=== PATIENT | female | born 1950 | race Caucasian/White ===

== ENCOUNTER 2017-05-23 13:20 | Inpatient (IN) | payer BC ==
[~2017-05-23] VITALS: Ht 175.3 cm; Wt 94.1 kg
[~2017-05-23 13:20] MED LIST: CIPR500T78 PO; HYDR-3456 PO
--- NOTE | 2017-05-23 13:45 | ED Respiratory ---
General Chief Complaint: Respiratory Problems Stated Complaint: SOB Source: patient Exam Limitations: no limitations History of Present Illness Time seen by provider: 13:41 Initial Comments This 67-year-old white female presents with a complaint of shortness of breath for the past week. The patient has had associated joint pains. 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 The patient has been receiving injections of Simphoni, the most recent approximately 3 weeks ago. Patient states that the medication was extremely effective when first started and she is now having significant relapses several weeks after she receives the injection. The patient's shortness of breath is a new complaint and has not occurred with the relapses from the infusion. The patient denies fever, chills, productive cough, hemoptysis, easy bruising or bleeding, peripheral edema, chest pain, or palpitations. Allergies and Home Medications Allergies Coded Allergies: No Known Drug Allergies (Unverified , 09/13/14) Home Medications Hydrocodone/Acetaminophen 1 Each Tablet, 1-2 TAB PO Q4-6HR PRN for PAIN, #30 FOR PAIN Prescribed by: NICOLE KISER on 06/05/15 0837 Constitutional: No chills, No fever EENTM: No hearing loss, No vision loss Respiratory: see HPI, No cough, dyspnea on exertion, No hemoptysis, short of breath Cardiovascular: No chest pain, No palpitations Gastrointestinal: No abdominal pain, No diarrhea, No nausea, No vomiting Genitourinary: No dysuria, No frequency, No hematuria : No Musculoskeletal: joint pain Skin: No rash Psychiatric/Neurological: No Symptoms Reported Hematologic/Lymphatic: No Symptoms Reported Past Wqboanx-Hnvxqi-Yyfshn Hx Patient Social History Recent Foreign Travel: No Contact w/Someone Who Travel: No Immunizations Up To Date Tetanus Booster (TDap): Unknown Surgeries HX Surgeries: Yes (JAW SURGERY 17YRS AGO) Surgeries: Abdominal Respiratory Hx Respiratory Disorders: No Cardiovascular Hx Cardiac Disorders: No (HAD STRESS TEST IN Nov, WAS OK) Neurological Hx Neurological Disorders: No Reproductive System Hx Reproductive Disorders: No Sexually Transmitted Disease: No HIV/AIDS: No Female Reproductive Disorders: Denies Genitourinary Hx Genitourinary Disorders: No Gastrointestinal Hx Gastrointestinal Disorders: No Musculoskeletal Hx Musculoskeletal Disorders: Yes (IN FEET) Musculoskeletal Disorders: Arthritis Endocrine Hx Endocrine Disorders: No HEENT HX ENT Disorders: Yes (WEARS GLASSES) Loss of Vision: Bilateral Hearing Impairment: Denies Cancer Hx Cancer: No Psychosocial Hx Psychiatric Problems: No Integumentary HX Skin/Integumentary Disorder: No Blood Transfusions Hx Blood Disorders: No Adverse Reaction to a Blood Tr: No Reviewed Nursing Assessment Reviewed/Agree w Nursing PMH: Yes Family Medical History Family Medial History: Cardiovascular disease FH: breast cancer Physical Exam Vital Signs Vital Sign - Last 12Hours 05/23/17 13:39 Temp 101.1 Pulse 107 Resp 20 B/P (MAP) 174/110 Pulse Ox 85 O2 Delivery Room Air Capillary Refill : General Appearance: WD/WN, mild distress Eyes: Bilateral Eye Normal Inspection HEENT: normal ENT inspection Neck: full range of motion Respiratory: chest non-tender, lungs clear, normal breath sounds Cardiovascular: regular rate, rhythm, no edema, no murmur Gastrointestinal: normal bowel sounds, non tender, soft Neurologic/Psychiatric: no motor/sensory deficits, alert, normal mood/affect, oriented x 3 Skin: normal color, warm/dry, No rash Lymphatic: no adenopathy Focused Exam Lactic Acid Level Laboratory Tests Test 05/23/17 13:45 Lactic Acid Level 1.38 MMOL/L (0.50-2.00) Progress/Results/Core Measures Results/Orders Lab Results Laboratory Tests Test 05/23/17 13:45 05/23/17 14:26 Range/Units White Blood Count 9.3 4.3-11.0 10^3/uL Red Blood Count 3.82 L 4.35-5.85 10^6/uL Hemoglobin 11.8 11.5-16.0 G/DL Hematocrit 36 35-52 % Mean Corpuscular Volume 93 80-99 FL Mean Corpuscular Hemoglobin 31 25-34 PG Mean Corpuscular Hemoglobin Concent 33 32-36 G/DL Red Cell Distribution Width 14.3 10.0-14.5 % Platelet Count 474 H 130-400 10^3/uL Mean Platelet Volume 9.2 7.4-10.4 FL Neutrophils (%) (Auto) 75 42-75 % Lymphocytes (%) (Auto) 11 L 12-44 % Monocytes (%) (Auto) 13 H 0-12 % Eosinophils (%) (Auto) 1 0-10 % Basophils (%) (Auto) 0 0-10 % Neutrophils # (Auto) 7.0 1.8-7.8 X 10^3 Lymphocytes # (Auto) 1.0 1.0-4.0 X 10^3 Monocytes # (Auto) 1.2 H 0.0-1.0 X 10^3 Eosinophils # (Auto) 0.1 0.0-0.3 10^3/uL Basophils # (Auto) 0.0 0.0-0.1 10^3/uL Erythrocyte Sedimentation Rate 83 H 0-30 MM/HR D-Dimer 1.68 H 0.00-0.49 UG/ML Sodium Level 134 L 135-145 MMOL/L Potassium Level 4.1 3.6-5.0 MMOL/L Chloride Level 101 98-107 MMOL/L Carbon Dioxide Level 21 21-32 MMOL/L Anion Gap 12 5-14 MMOL/L Blood Urea Nitrogen 16 7-18 MG/DL Creatinine 1.00 0.60-1.30 MG/DL Estimat Glomerular Filtration Rate 55 BUN/Creatinine Ratio 16 Glucose Level 122 H 70-105 MG/DL Lactic Acid Level 1.38 0.50-2.00 MMOL/L Calcium Level 9.7 8.5-10.1 MG/DL Total Bilirubin 0.7 0.1-1.0 MG/DL Aspartate Amino Transf (AST/SGOT) 18 5-34 U/L Alanine Aminotransferase (ALT/SGPT) 11 0-55 U/L Alkaline Phosphatase 64 40-136 U/L Troponin I < 0.30 <0.30 NG/ML C-Reactive Protein High Sensitivity 14.18 H 0.00-0.50 MG/DL B-Type Natriuretic Peptide 42.2 <100.0 PG/ML Total Protein 7.2 6.4-8.2 GM/DL Albumin 3.6 3.2-4.5 GM/DL Urine Color YELLOW Urine Clarity SLIGHTLY CLOUDY Urine pH 7 5-9 Urine Specific [place] 1.015 L 1.016-1.022 Urine Protein 2+ H NEGATIVE Urine Glucose (UA) NEGATIVE NEGATIVE Urine Ketones 1+ H NEGATIVE Urine Nitrite NEGATIVE NEGATIVE Urine Bilirubin NEGATIVE NEGATIVE Urine Urobilinogen 1 NORMAL MG/DL Urine Leukocyte Esterase 2+ H NEGATIVE Urine RBC (Auto) 1+ H NEGATIVE Urine RBC 0-2 /HPF Urine WBC 10-25 H /HPF Urine Squamous Epithelial Cells 2-5 /HPF Urine Crystals NONE /LPF Urine Bacteria TRACE /HPF Urine Casts NONE /LPF Urine Mucus NEGATIVE /LPF Urine Culture Indicated YES My Orders Orders - ZANE CANNON MD Hs C Reactive Protein (05/23/17 13:35) Cbc With Automated Diff (05/23/17 13:35) Comprehensive Metabolic Panel (05/23/17 13:35) Ua Culture If Indicated (05/23/17 13:35) Erythrocyte Sedimentation Rate (05/23/17 13:35) Chest 1 View, Ap/Pa Only (05/23/17 13:35) Fibrin Degradation Products (05/23/17 13:38) BNP (05/23/17 13:38) Ekg Tracing (05/23/17 13:38) Troponin I (05/23/17 13:38) Blood Culture (05/23/17 13:46) Lactic Acid Analyzer (05/23/17 13:46) Ns Iv 1000 Ml (Sodium Chloride 0.9%) (05/23/17 14:00) Saline Lock/Iv-Start (05/23/17 14:00) Ct Angio Chest W (05/23/17 14:27) Iohexol Injection (Omnipaque 350 Mg/Ml 1 (05/23/17 14:30) Ns (Ivpb) (Sodium Chloride 0.9% Ivpb Bag (05/23/17 14:30) Urine Culture (05/23/17 14:26) Levaquin 750 Mg Iv (1x Dose) (05/23/17 15:45) Medications Given in ED Current Medications Medications Dose Ordered Sig/Joi Route Start Time Stop Time Status Last Admin Dose Admin Iohexol 100 ml ONCE ONCE IV 05/23/17 14:30 05/23/17 14:31 DC 05/23/17 14:40 100 ML Sodium Chloride 100 ml ONCE ONCE IV 05/23/17 14:30 05/23/17 14:31 DC 05/23/17 14:40 80 ML Vital Signs/I&O Vital Sign - Last 12Hours 05/23/17 13:39 Temp 101.1 Pulse 107 Resp 20 B/P (MAP) 174/110 Pulse Ox 85 O2 Delivery Room Air Progress Note : Time: 15:16 Progress Note Patient's laboratory evaluation demonstrated a markedly elevated CRP and sedimentation rate. Patient's white count was normal. The patient's B and P was normal. The patient's d-dimer was elevated. Patient's chest x-ray demonstrated marked vascular redistribution cardiomegaly. Symptomatically the patient was significantly short of breath. Patient's sats decreased from low 90s while she was sitting in bed to the lower 80s just with standing and removing her clothing. The patient's findings were certainly consistent with a possible pulmonary embolus. A CT angiogram of the chest was ordered. 1545 hours. The summary of the patient's laboratory and radiographic evaluation demonstrated cardiomegaly on the chest x-ray, an unremarkable white count, an elevated d-dimer, a normal BNP, an EKG which demonstrated a sinus rhythm without acute current of injury, a normal troponin, and marked elevation of the patient's CRP and sedimentation rate. A CT angiogram of the chest demonstrated pneumonia of both upper lobes. No evidence of a blood clot was appreciated. In view of the fact patient has been on essentially immune suppressant's in the form of her arthritis infusion treatments, after telephone consultation with Dr. Myesr, triple antibiotics were ordered appropriate for the patient. Orders were written, the patient was transferred to a telemetry bed for further evaluation care, and discussion of the patient's treatment plan was initiated in consultation with Dr. Myers. Departure Communication Time/Spoke to Admitting Phy: 15:[address] Myers. Impression Impression: Primary Impression: Pneumonia Qualified Codes: J18.9 - Pneumonia, unspecified organism Disposition: ADMITTED INPATIENT Condition: Improved Decision to Admit Reason: Admit from ER (General) Decision to Admit/Date: May 23, 2017 Time/Decision to Admit Time: 15:49 Departure-Patient Inst. Referrals: JACKY ROGERS MD (PCP/Family) Primary Care Physician ZANE CANNON MD May 23, 2017 13:45
--- NOTE | 2017-05-23 13:54 | Diagnostic Imaging Report ---
INDICATION: Cough, shortness of breath. COMPARISON: None. FINDINGS: Single view of the chest demonstrates cardiac enlargement with central vascular congestion. There is no pneumothorax, effusion or focal infiltrate. Osseous structures normal. IMPRESSION: Cardiac enlargement with central vascular congestion. Dictated by: Dictated on workstation # [id number]
[2017-05-23 14:00] LABS: BASOPHILS % (AUTO) 0 % (0-10); EOSINOPHILS # (AUTO) 0.1 10^3/uL (0.0-0.3); EOSINOPHILS % (AUTO) 1 % (0-10); LYMPHOCYTES % (AUTO) 11 % (12-44); MEAN CORPUSCULAR HEMOGLOBIN 31 PG (25-34); MEAN CORPUSCULAR HGB CONC 33 G/DL (32-36); MEAN CORPUSCULAR VOLUME 93 FL (80-99); MEAN PLATELET VOLUME 9.2 FL (7.4-10.4); MONOCYTES # (AUTO) 1.2 X 10^3 (0.0-1.0); MONOCYTES % (AUTO) 13 % (0-12); NEUTROPHILS % (AUTO) 75 % (42-75); PLATELET COUNT 474 10^3/uL (130-400); RED BLOOD COUNT 3.82 10^6/uL (4.35-5.85); RED CELL DISTRIBUTION WIDTH 14.3 % (10.0-14.5); WHITE BLOOD COUNT 9.3 10^3/uL (4.3-11.0)
[2017-05-23] MEDS ORDERED: NS IV 1000 ML 1,000 ML IV SCH (14:00)
[2017-05-23 14:12] LABS: ALANINE AMINOTRANSFERASE 11 U/L (0-55); ALBUMIN 3.6 GM/DL (3.2-4.5); ANION GAP 12 MMOL/L (5-14); ASPARTATE AMINO TRANSFERASE 18 U/L (5-34); BILIRUBIN,TOTAL 0.7 MG/DL (0.1-1.0); BLOOD UREA NITROGEN 16 MG/DL (7-18); BUN/CREATININE RATIO 16; CALCIUM 9.7 MG/DL (8.5-10.1); CARBON DIOXIDE 21 MMOL/L (21-32); CHLORIDE 101 MMOL/L (98-107); GFR ESTIMATED 55; GLUCOSE 122 MG/DL (70-105); POTASSIUM 4.1 MMOL/L (3.6-5.0); SODIUM 134 MMOL/L (135-145); TOTAL PROTEIN 7.2 GM/DL (6.4-8.2); hs C REACTIVE PROTEIN 14.18 MG/DL (0.00-0.50)
[2017-05-23 14:18] LABS: TROPONIN I < 0.30 NG/ML (<0.30)
[2017-05-23 14:21] LABS: ERYTHROCYTE SEDIMENTATION RATE 83 MM/HR (0-30)
[2017-05-23] MEDS ORDERED: NS 100 ML (IVPB) BAG IV ONE (14:30)
[2017-05-23] MEDS ORDERED: IOHEXOL 350 MG/ML 100 ML (OMNIPAQUE 350) VIAL IV ONE (14:30)
[2017-05-23 14:33] LABS: BILIRUBIN,URINE NEGATIVE (NEGATIVE); KETONES,URINE 1+ (NEGATIVE); LEUKOCYTE ESTERASE ,URINE 2+ (NEGATIVE); NITRITE,URINE NEGATIVE (NEGATIVE); PH,URINE 7 (5-9); PROTEIN,URINE 2+ (NEGATIVE); UROBILINOGEN,URINE 1 MG/DL (NORMAL)
--- NOTE | 2017-05-23 15:22 | Diagnostic Imaging Report ---
PROCEDURE: CT angiography of the chest with contrast. TECHNIQUE: Multiple contiguous axial images were obtained through the chest after uneventful bolus administration of intravenous contrast. Reconstructed CTA MIP acquisitions were also performed. INDICATION: Cough, shortness of breath. COMPARISON: None. FINDINGS: The heart and great vessels are normal. There is no pulmonary embolism or aortic pathology. No pericardial effusion is seen. Bilateral patchy infiltrates are seen bilaterally. This is most pronounced in the mid and upper lung zones. There is mediastinal and hilar lymphadenopathy which may be reactive. The largest lymph node is in the mediastinum measuring 12 mm in cross-section. There is no pneumothorax. Osseous structures are age appropriate. IMPRESSION: 1. No pulmonary embolism. 2. Bilateral pulmonary infiltrates, likely pneumonia with probable reactive lymphadenopathy. Recommend followup to assure resolution. Neoplasm is not excluded. Dictated by: Dictated on workstation # [id number]
[2017-05-23] MEDS ORDERED: LEVOFLOXACIN 750 MG/150 ML IV 150 ML IV ONE (15:45)
[2017-05-23] MEDS: NS IV 1000 ML 1,000 ML IV SCH (17:29)
[2017-05-23 17:45] VITALS: BP 143/82
[2017-05-23] MEDS ORDERED: NS IV SCH (18:00)
[2017-05-23] MEDS ORDERED: GENTAMICIN IV SCH (18:00)
[2017-05-23] MEDS: ACETAMINOPHEN 500 MG TAB (TYLENOL) PO PRN ×2 (18:06→23:43)
[2017-05-23] MEDS: CEFEPIME 2 GM/NS 50 ML IVPB IV SCH ×2 (19:49)
[2017-05-23 20:00] VITALS: BP 116/71
[2017-05-23] MEDS: RT-ALBUTEROL/IPRATROPIUM 3 ML (DUONEB) VIAL IH SCH (20:33)
[2017-05-23 23:30] VITALS: BP 112/65
[2017-05-24] MEDS ORDERED: TROUGH ORDER-PHARMACY XX NR (04:00)
[2017-05-24 04:55] VITALS: BP 121/75
[2017-05-24 04:57] LABS: BASOPHILS % (AUTO) 0 % (0-10); EOSINOPHILS # (AUTO) 0.1 10^3/uL (0.0-0.3); EOSINOPHILS % (AUTO) 1 % (0-10); LYMPHOCYTES % (AUTO) 13 % (12-44); MEAN CORPUSCULAR HEMOGLOBIN 31 PG (25-34); MEAN CORPUSCULAR HGB CONC 34 G/DL (32-36); MEAN CORPUSCULAR VOLUME 94 FL (80-99); MEAN PLATELET VOLUME 9.5 FL (7.4-10.4); MONOCYTES # (AUTO) 1.1 X 10^3 (0.0-1.0); MONOCYTES % (AUTO) 14 % (0-12); NEUTROPHILS # (AUTO) 5.6 X 10^3 (1.8-7.8); NEUTROPHILS % (AUTO) 72 % (42-75); PLATELET COUNT 386 10^3/uL (130-400); RED BLOOD COUNT 3.38 10^6/uL (4.35-5.85); WHITE BLOOD COUNT 7.8 10^3/uL (4.3-11.0)
[2017-05-24 05:13] LABS: BILIRUBIN,TOTAL 0.4 MG/DL (0.1-1.0); CALCIUM 8.7 MG/DL (8.5-10.1); TOTAL PROTEIN 6.1 GM/DL (6.4-8.2)
[2017-05-24] MEDS: RT-ALBUTEROL/IPRATROPIUM 3 ML (DUONEB) VIAL IH SCH ×4 (07:31→19:22)
--- NOTE | 2017-05-24 08:10 | History & Physicial ---
History of Present Illness History of Present Illness Reason for visit/HPI PT IS A 67 Y/O FEMALE WHO IS KNOWN TO ME FROM CLINIC. SHE PRESENTED TO THE EMERGENCY DEPARTMENT YESTERDAY EVENING WITH WEAKNESS, COUGH, FEVER, AND WAS EVALUATED AND FOUND TO HAVE PNEUMONIA ON CT SCAN. SHE CONTINUED TO HAVE FEVERS OVERNIGHT AND REQUIRES OXYGEN FOR SUPPORT DUE TO SHORTNESS OF BREATH AND HYPOXIA. Date of Admission May 23, 2017 at 15:43 Date Seen by Provider: May 24, 2017 Time Seen by Provider: 08:48 I consulted on this patient on 05/24/17 08:48 Attending Physician JACKY KONG MD Admitting Physician Jacky Kong MD Consult Allergies and Home Medications Allergies Coded Allergies: No Known Drug Allergies (Unverified , 09/13/14) Home Medications Cholecalciferol (Vitamin D3) 1,000 Unit Capsule, 2,000 UNIT PO DAILY, (Reported) TAKES 2 (1,000 UNITS) CAPSULES Folic Acid 1 Mg Tablet, 1 MG PO DAILY, (Reported) Hydrocodone/Acetaminophen 1 Each Tablet, 0.5-1 TAB PO Q6H PRN for PAIN-MODERATE, (Reported) Methotrexate Sodium 2.5 Mg Tablet, 25 MG PO Andrew, (Reported) Nabumetone 750 Mg Tablet, 1,500 MG PO DAILY, (Reported) TAKES 2 (750MG) TABLETS Past Qyauhkd-Gndskb-Xbniiy Hx Patient Social History Marrital Status: Living Status: LIVES IN HER OWN HOME Employed/Student: employed Alcohol Use: Denies Use Recreational Drug Use: No Smoking Status: Never a Smoker 2nd Hand Smoke Exposure: No Physical Abuse Screen: No Sexual Abuse: No Recent Foreign Travel: No Contact w/other who traveled: No Recent Hopitalizations: No Recent Infectious Disease Expo: No Immunizations Up To Date Tetanus Booster (TDap): Unknown Seasonal Allergies Seasonal Allergies: No Surgeries HX Surgeries: Yes (JAW SURGERY 17YRS AGO) Surgeries: Abdominal Respiratory Hx Respiratory Disorders: No Cardiovascular Hx Cardiovascular Disorders: No (HAD STRESS TEST IN Nov, WAS OK) Neurological Hx Neurological Disorders: No Reproductive System Hx Reproductive Disorders: No Sexually Transmitted Disease: No HIV/AIDS: No Female Reproductive Disorders: Denies Genitourinary Hx Genitourinary Disorders: No Gastrointestinal Hx Gastrointestinal Disorders: No Musculoskeletal Hx Musculoskeletal Disorders: Yes (IN FEET) Musculoskeletal Disorders: Arthritis, Rheumatoid Arthritis Endocrine Hx Endocrine Disorders: No HEENT HX ENT Disorders: Yes (WEARS GLASSES) Loss of Vision: Bilateral Hearing Impairment: Denies Cancer Hx Cancer: No Psychosocial Hx Psychiatric Problems: No Integumentary HX Skin/Integumentary Disorder: No Blood Transfusions Hx Blood Disorders: No Adverse Reaction to a Blood Tr: No Reviewed Nursing Assessment Reviewed/Agree w Nursing PMH: Yes Family Medical History Significant Family History: Heart Disease, Cancer, Other Conditions/Hx Family Hx: Cardiovascular disease 19 FATHER FH: breast cancer 19 MOTHER FH: non-Hodgkin's lymphoma G8 BROTHER FHx: rheumatoid arthritis G8 SISTER Heart murmur Constitutional: No chills, fever, malaise, weakness EENTM: No hoarseness, No mouth pain, No throat pain Respiratory: cough, dyspnea on exertion, short of breath Cardiovascular: No chest pain, No palpitations Gastrointestinal: No abdominal pain, No loss of appetite, No melena, No nausea , No vomiting Genitourinary: no symptoms reported Musculoskeletal: No back pain, joint pain, muscle weakness Skin: No lesions Psychiatric/Neurological: Denies Anxiety, Denies Depressed All Other Systems Reviewed Negative Unless Noted: Yes Physical Exam Vital Signs Vital Sign - Last 12Hours 05/23/17 05/23/17 13:39 16:03 Temp 101.1 Pulse 107 Resp 20 B/P (MAP) 174/110 Pulse Ox 85 O2 Delivery Room Air O2 Flow Rate 2.00 Capillary Refill : Less Than 3 Seconds General Appearance: No Apparent Distress, WD/WN Eyes: Bilateral Eye EOMI, Bilateral Eye Normal Inspection, Bilateral Eye PERRL HEENT: PERRL/EOMI, Pharynx Normal Neck: Full Range of Motion, Supple Respiratory: Chest Non Tender, Crackles, Decreased Breath Sounds Cardiovascular: Regular Rate, Rhythm Gastrointestinal: Normal Bowel Sounds, Soft Rectal: Deferred Extremity: No Pedal Edema Neurologic/Psychiatric: Alert, Oriented x3, No Motor/Sensory Deficits, Normal Mood/Affect, senior medical transcriptionist II-XII Norm as Tested Skin: Normal Color, Warm/Dry Lymphatic: No Adenopathy Assessment/Plan Assessment and Plan PNEUMONIA HYPOXIA LYMPHADENOPATHY RHEUMATOID ARTHRITIS CHRONIC IMMUNOSUPPRESSION PNEUMONIA - ON PNEUMONIA PROTOCOL, CONTINUE CURRENT TREATMENT - STOP GENTAMICIN - CHECK SERIAL CHEST XRAYS. HYPOXIA - IMPROVED ON OXYGEN - CONTINUE CURRENT MANAGEMENT - MONITOR OXYGEN. LYMPHADENOPATHY - IN CHEST ON CT SCAN - WILL REPEAT IMAGING IN ONE MONTH AFTER HEALING FROM PNEUMONIA TO SEE IF LYMPHADENOPATHY IS INFLAMMATORY OR POSSIBLY MALIGNANT - DISCUSSED THIS WITH THE PATIENT TODAY - HER SISTER WAS PRESENT. RHEUMATOID ARTHRITIS - HOLD METHOTREXATE TODAY. Problems: Admission Diagnosis PNEUMONIA HYPOXIA LYMPHADENOPATHY RHEUMATOID ARTHRITIS CHRONIC IMMUNOSUPPRESSION Clinical Quality Measures DVT/VTE Risk/Contraindication: Risk Factor Score Per Nursin RFS Level Per Nursing on Admit: 3=High JACKY KONG MD May 24, 2017 08:10
[2017-05-24] MEDS: CEFEPIME 2 GM/NS 50 ML IVPB IV SCH ×4 (08:12→20:06)
[2017-05-24 08:42] VITALS: BP 128/84
--- NOTE | 2017-05-24 09:22 | Diagnostic Imaging Report ---
INDICATION: Pneumonia, shortness of breath with exertion. COMPARISON: 05/23. Heart size felt to be within the upper limits of normal. There has however been progressive bilateral mixed interstitial and airspace infiltrate suspect for pneumonia. Disease most notably involves the right upper lobe but is also seen in the perihilar lower lobes bilaterally. No identifiable pleural fluid. IMPRESSION: Fairly substantial and worsened 5 lobed infiltrates most suggestive of pneumonia without appreciable pleural fluid. Dictated by: Dictated on workstation # [id number]
[2017-05-24] MEDS ORDERED: METH2.5T PO (10:59)
[2017-05-24] MEDS ORDERED: NABU750T PO (10:59)
[2017-05-24] MEDS ORDERED: HYDR-3812 PO (10:59)
[2017-05-24] MEDS ORDERED: CHOL10007 PO (10:59)
[2017-05-24] MEDS ORDERED: FOLI1TAB24 PO (10:59)
[2017-05-24 12:00] VITALS: BP 106/69
[2017-05-24] MEDS: ACETAMINOPHEN 500 MG TAB (TYLENOL) PO PRN (13:30)
[2017-05-24] MEDS ORDERED: RX-HYDROCODONE/APAP 5/325 MG #4 TAB PK PO PRN (15:30)
[2017-05-24] MEDS ORDERED: LEVOFLOXACIN 750 MG/150 ML IV 150 ML IV SCH (16:00)
[2017-05-24] MEDS: NS IV 1000 ML 1,000 ML IV SCH (16:28)
[2017-05-24] MEDS: HYDROcodone/APAP 5 MG/325 MG (LORTAB) TAB PO PRN ×2 (16:29→23:37)
[2017-05-24] MEDS: IBUPROFEN 800 MG (MOTRIN) TAB PO SCH (16:29)
[2017-05-24 16:30] VITALS: BP 110/68
[2017-05-24 20:05] VITALS: BP 109/69
[2017-05-24 23:28] VITALS: BP 108/72
[2017-05-25 03:05] VITALS: BP 101/61
[2017-05-25 04:52] LABS: MEAN PLATELET VOLUME 9.3 FL (7.4-10.4); RED BLOOD COUNT 3.56 10^6/uL (4.35-5.85); RED CELL DISTRIBUTION WIDTH 14.2 % (10.0-14.5); WHITE BLOOD COUNT 9.5 10^3/uL (4.3-11.0)
[2017-05-25 05:13] LABS: ALBUMIN 3.1 GM/DL (3.2-4.5); BILIRUBIN,TOTAL 0.4 MG/DL (0.1-1.0); CREATININE SERUM 0.97 MG/DL (0.60-1.30); POTASSIUM 4.3 MMOL/L (3.6-5.0); TOTAL PROTEIN 6.6 GM/DL (6.4-8.2)
[2017-05-25] MEDS ORDERED: GENTAMICIN IV SCH (06:00)
[2017-05-25] MEDS ORDERED: NS IV SCH (06:00)
[2017-05-25] MEDS: IBUPROFEN 800 MG (MOTRIN) TAB PO SCH (06:13)
[2017-05-25] MEDS: RT-ALBUTEROL/IPRATROPIUM 3 ML (DUONEB) VIAL IH SCH ×4 (07:21→18:59)
[2017-05-25 08:05] VITALS: BP 133/63
[2017-05-25] MEDS: NS IV 1000 ML 1,000 ML IV SCH ×2 (08:07→14:20)
[2017-05-25] MEDS: CEFEPIME 2 GM/NS 50 ML IVPB IV SCH ×4 (08:07→19:45)
[2017-05-25] MEDS: FOLIC ACID 1 MG TAB PO SCH (08:07)
--- NOTE | 2017-05-25 08:21 | Progress Note (SOAP) ---
Subjective Date Seen by Provider: May 25, 2017 Time Seen by Provider: 08:10 Subjective/Events-last exam PT IS A 67 Y/O FEMALE WHO IS KNOWN TO ME FROM CLINIC. SHE HAS MULTI-LOBAR PNEUMONIA. OVER THE PAST 24 HOURS SHE HAS FELT LIKE SHE IS GETTING A LITTLE BIT BETTER, BUT STILL QUITE SHORT OF BREATH WITH ACTIVITY. Review of Systems General: No Chills, No Night Sweats, Fatigue, Malaise HEENT: No Head Aches Pulmonary: Dyspnea, Cough, No Pleuritic Chest Pain Cardiovascular: No: Chest Pain, Edema Gastrointestinal: No: Abdominal Pain, Constipation, Diarrhea, Nausea Genitourinary: No Dysuria Neurological: Weakness, No: Confusion Objective Exam Vital Signs Date Time Temp Pulse Resp B/P (MAP) Pulse Ox O2 Delivery O2 Flow Rate FiO2 05/25/17 07:21 90 Nasal Cannula 4.00 05/25/17 03:05 99.3 85 22 101/61 92 Nasal Cannula 4.00 05/25/17 01:00 85 05/24/17 23:28 99.4 82 18 108/72 93 Nasal Cannula 4.00 05/24/17 20:05 98.3 65 20 109/69 94 Nasal Cannula 2.50 05/24/17 20:00 93 Nasal Cannula 3.00 05/24/17 19:22 92 Nasal Cannula 4.00 05/24/17 19:00 89 05/24/17 16:30 100.5 85 20 110/68 93 Nasal Cannula 2.50 05/24/17 14:39 84 Room Air 05/24/17 13:04 93 05/24/17 12:00 101.3 91 18 106/69 96 Nasal Cannula 2.50 05/24/17 10:31 90 Nasal Cannula 4.00 05/24/17 08:42 100.5 90 20 128/84 93 Nasal Cannula 2.50 I & O 05/25/17 07:00 Intake Total 1520 ml Output Total 2100 ml Balance -580 ml Capillary Refill : Less Than 3 Seconds General Appearance: No Apparent Distress, WD/WN HEENT: PERRL/EOMI, Pharynx Normal Neck: Full Range of Motion Respiratory: Chest Non Tender, Crackles, Decreased Breath Sounds Cardiovascular: Regular Rate, Rhythm Gastrointestinal: normal bowel sounds, non tender, soft Extremity: Normal Capillary Refill Neurologic/Psychiatric: Alert, Oriented x3, No Motor/Sensory Deficits, Normal Mood/Affect Skin: Warm/Dry Lymphatic: No Adenopathy Results Lab Laboratory Tests 05/25/17 04:24: White Blood Count 9.5, Red Blood Count 3.56L, Hemoglobin 10.9L, Hematocrit 33L, Mean Corpuscular Volume 94, Mean Corpuscular Hemoglobin 31, Mean Corpuscular Hemoglobin Concent 33, Red Cell Distribution Width 14.2, Platelet Count 444H, Mean Platelet Volume 9.3, Sodium Level 137, Potassium Level 4.3, Chloride Level 104, Carbon Dioxide Level 22, Anion Gap 11, Blood Urea Nitrogen 12, Creatinine 0.97, Estimat Glomerular Filtration Rate 57, BUN/Creatinine Ratio 12, Glucose Level 110H, Calcium Level 10.0, Total Bilirubin 0.4, Aspartate Amino Transf (AST /SGOT) 19, Alanine Aminotransferase (ALT/SGPT) 11, Alkaline Phosphatase 60, Total Protein 6.6, Albumin 3.1L Microbiology 05/23/17 Blood Culture - Preliminary, Resulted No growth 05/23/17 Urine Culture - Preliminary, Resulted Nonenterococcus (Chains Cocci) Probable E.coli Assessment/Plan Assessment/Plan Assess & Plan/Chief Complaint PNEUMONIA - MULTILOBAR HYPOXIA LYMPHADENOPATHY RHEUMATOID ARTHRITIS CHRONIC IMMUNOSUPPRESSION UTI - PROBABLE ECOLI PNEUMONIA - ON PNEUMONIA PROTOCOL, CONTINUE CURRENT TREATMENT - STOP GENTAMICIN - CHECK SERIAL CHEST XRAYS. - NO IMPROVEMENT OVER THE PAST 24 HOURS ON CHEST XRAY - WILL START ACAPELLA TODAY, GIVE A DOSE OF STEROIDS IV AND A ONE TIME DOSE OF LASIX WELL. HYPOXIA - IMPROVED ON OXYGEN - CONTINUE CURRENT MANAGEMENT - MONITOR OXYGEN. LYMPHADENOPATHY - IN CHEST ON CT SCAN - WILL REPEAT IMAGING IN ONE MONTH AFTER HEALING FROM PNEUMONIA TO SEE IF LYMPHADENOPATHY IS INFLAMMATORY OR POSSIBLY MALIGNANT - DISCUSSED THIS WITH THE PATIENT TODAY - HER SISTER WAS PRESENT. RHEUMATOID ARTHRITIS - HOLD METHOTREXATE TODAY. UTI - PROBABLE ECOLI - WAITING ON CULTURE REPORT. - CONTINUE WITH CURRENT ANTIBIOTIC SELECTION - LEVAQUIN AND CEFEPIME Clinical Quality Measures DVT/VTE Risk/Contraindication: Risk Factor Score Per Nursin RFS Level Per Nursing on Admit: 3=High JACKY ROGERS MD May 25, 2017 08:21
[2017-05-25] MEDS ORDERED: methylPREDNISolone 40 MG/ML (Solu-MEDROL) VIAL IV NR (08:31)
[2017-05-25] MEDS ORDERED: FUROSEMIDE 40 MG/4 ML INJ (LASIX) IVP NR (08:52)
[2017-05-25] MEDS: ENOXAPARIN 40 MG/0.4 ML (LOVENOX) SYR SC SCH (08:59)
[2017-05-25] MEDS ORDERED: NABUMETONE PO SCH (09:00)
--- NOTE | 2017-05-25 10:52 | Diagnostic Imaging Report ---
PA and lateral views of the chest. INDICATION: Pneumonia. FINDINGS: There are extensive bilateral infiltrates seen. No significant change is seen compared to the prior exam. Heart size is normal. No effusion or pneumothorax. The mediastinum and raphael appear unremarkable. IMPRESSION: Stable extensive bilateral infiltrates. Dictated by: Dictated on workstation # [id number]
[2017-05-25 12:00] VITALS: BP 121/71
--- NOTE | 2017-05-25 14:10 | Physical Therapy Evaluation ---
PT Evaluation-General Medical Diagnosis Admission Date May 23, 2017 at 15:43 Medical Diagnosis: pneumonia Onset Date: May 23, 2017 Therapy Diagnosis Therapy Diagnosis: generalized weakness/debility Height/Weight Height (Feet): 5 Height (Inches): 9.00 Weight (Pounds): 207 Weight (Ounces): 9.0 Precautions Precautions/Isolations: Fall Prevention, Standard Precautions Referral Physician: Dilan Reason for Referral: Evaluation/Treatment Medical History Pertinent Medical History: Arthritis, Rheumatoid Arthritis Additional Medical History UTI Current History ED with SOB, hypoxia, UTI Reviewed History: Yes Social History Home: Single Level Current Living Status: Alone works at [employer] Prior/Core FIM Prior Level of Function Functional [place] Measure 0=Not Assessed/NA 4=Minimal Assistance 1=Total Assistance 5=Supervision or Setup 2=Maximal Assistance 6=Modified [place] 3=Moderate Assistance 7=Complete [place] Bed Mobility: 7 Transfers (B,C,W/C) (FIM): 7 Gait: 7 Locomotion: 7 PT Evaluation-Current Subjective Patient agrees to PT. Patient c/o SOB with minimal activity. Pain Numeric Pain Scale: 0-No Pain Location: No Pain Reported Objective Patient Orientation: Normal For Age Problem Solving: Good Attachments: Oxygen, IV ROM/Strength ROM Lower Extremities bilateral LE WNL Strenght Lower Extremities bilateral LE WNL Integumentary/Posture Integumentary refer to nursing notes Bowel Incontinence: No Bladder Incontinence: No Posture WNL Neuromuscular (Tone, Coordination, Reflexes) grossly intact Sensory Vision: Wears Glasses Hearing: Functional Sensation Right Lower Extremit: Intact Sensation Left Lower Extremity: Intact Transfers Functional [place] Measure 0=Not Assessed/NA 4=Minimal Assistance 1=Total Assistance 5=Supervision or Setup 2=Maximal Assistance 6=Modified [place] 3=Moderate Assistance 7=Complete [place] Transfers (B, C, W/C) (FIM): 6 Scootin Rollin Supine to/from Sit: 6 Sit to/from Stand: 6 Gait Mode of Locomotion: Walk Anticipated Mode of Locomotion: Walk Gait (FIM): 5 Distance (FIM): 3=150 ft Distance: 150' Gait Level of Assist: 5 Gait Persons Needed: 1 Gait Assistive Device: FWW Comments/Gait Description assist for O2 tank and use of FWW for stability Balance Sitting Static: Normal Sitting Dynamic: Normal Standing Static: Normal Standing Dynamic: Normal Assessment/Needs 67 y.o. female, will benefit from short term skilled PT to address pulmonary function with gross motor skills to safely return to home and work at maximum LOF. Patient is limited with increase SOA with minimal activity. FWW utilized for energy conservation. Rehab Potential: Good PT Penitentiary Goals Penitentiary Goals PT Company Controller Goals Time Frame: Jun 04, 2017 Transfers (B,C,W/C) (FIM): 7 Gait (FIM): 7 Gait distance (FIM): 3=150 ft Distance: 250' Gait Level of Assist: 7 Gait Assistive Device: None PT Plan Problem List Problem List: Activity Tolerance, Functional Strength Treatment/Plan Treatment Plan: Continue Plan of Care Treatment Plan: Education, Functional Activity Trevor, Functional Strength, Gait , Safety, Therapeutic Exercise, Transfers Treatment Duration: Jun 04, 2017 Frequency: 6 times per week Estimated Hrs Per Day: .25 hour per day Patient and/or Family Agrees t: Yes Discharge Recommendations Therapy D/C Recommendations: Home Independently Time/GCodes Time In: 1325 Time Out: 1345 Total Billed Treatment Time: 20 Total Billed Treatment 1 visit [facility] 20 min SIMEON MCINTOSH PT May 25, 2017 14:10
[2017-05-25] MEDS: methylPREDNISolone 40 MG/ML (Solu-MEDROL) VIAL IV SCH ×2 (14:20→19:45)
[2017-05-25 15:48] VITALS: BP 98/62
[2017-05-25] MEDS: LEVOFLOXACIN 750 MG TAB (LEVAQUIN) PO SCH (15:57)
[2017-05-26] VITALS: BP 147/77
[2017-05-26] MEDS: methylPREDNISolone 40 MG/ML (Solu-MEDROL) VIAL IV SCH ×5 (01:52→23:54)
[2017-05-26 04:58] LABS: MEAN PLATELET VOLUME 9.6 FL (7.4-10.4); RED BLOOD COUNT 3.83 10^6/uL (4.35-5.85); RED CELL DISTRIBUTION WIDTH 14.2 % (10.0-14.5); WHITE BLOOD COUNT 16.3 10^3/uL (4.3-11.0)
[2017-05-26 05:20] LABS: ALANINE AMINOTRANSFERASE 14 U/L (0-55); ALBUMIN 3.3 GM/DL (3.2-4.5); ANION GAP 12 MMOL/L (5-14); ASPARTATE AMINO TRANSFERASE 19 U/L (5-34); BILIRUBIN,TOTAL 0.3 MG/DL (0.1-1.0); BLOOD UREA NITROGEN 16 MG/DL (7-18); BUN/CREATININE RATIO 19; CALCIUM 9.7 MG/DL (8.5-10.1); CARBON DIOXIDE 21 MMOL/L (21-32); CHLORIDE 104 MMOL/L (98-107); CREATININE SERUM 0.85 MG/DL (0.60-1.30); GFR ESTIMATED > 60; GLUCOSE 137 MG/DL (70-105); SODIUM 137 MMOL/L (135-145)
[2017-05-26] MEDS: HYDROcodone/APAP 5 MG/325 MG (LORTAB) TAB PO PRN (06:24)
[2017-05-26] MEDS: RT-ALBUTEROL/IPRATROPIUM 3 ML (DUONEB) VIAL IH SCH ×4 (06:53→18:58)
[2017-05-26 08:00] VITALS: BP 115/61
--- NOTE | 2017-05-26 08:03 | Progress Note (SOAP) ---
Subjective Date Seen by Provider: May 26, 2017 Time Seen by Provider: 08:05 Subjective/Events-last exam PT REPORTS THAT SHE STILL FEELS FATIGUED, SHE HAS SHORTNESS OF BREATH, SHE HAS NOT HAD A BOWEL MOVEMENT SINCE ADMISSION - SHE IS NOT WILLING TO TAKE MEDICATION AT THIS TIME. Review of Systems General: No Chills, Fatigue, Malaise HEENT: No Head Aches Pulmonary: Dyspnea, Cough Cardiovascular: No: Chest Pain, Palpitations Gastrointestinal: No: Abdominal Pain, Nausea Genitourinary: No Dysuria, No Frequency Musculoskeletal: No: back pain Neurological: Weakness Objective Exam Vital Signs Date Time Temp Pulse Resp B/P (MAP) Pulse Ox O2 Delivery O2 Flow Rate FiO2 05/26/17 06:53 90 Nasal Cannula 6.00 05/26/17 00:00 98.0 80 20 147/77 91 Nasal Cannula 4.00 05/25/17 19:50 Nasal Cannula 6.00 05/25/17 18:59 89 Nasal Cannula 5.00 05/25/17 15:48 97.9 89 16 98/62 92 05/25/17 14:39 88 Nasal Cannula 4.00 05/25/17 12:00 98.4 86 20 121/71 92 Room Air 05/25/17 10:56 90 Nasal Cannula 4.00 05/25/17 08:05 99.1 97 20 133/63 93 Nasal Cannula 3.00 05/25/17 08:05 90 Nasal Cannula 4.00 I & O 05/26/17 07:00 Intake Total 2840 ml Output Total 2275 ml Balance 565 ml Capillary Refill : Less Than 3 Seconds General Appearance: WD/WN, Mild Distress HEENT: PERRL/EOMI, Pharynx Normal Neck: Full Range of Motion, Supple Respiratory: Chest Non Tender, Crackles (THROUGHOUT), Decreased Breath Sounds Cardiovascular: Regular Rate, Rhythm, No Edema Gastrointestinal: normal bowel sounds, non tender, soft, no organomegaly, no pulsatile mass Extremity: Normal Capillary Refill, Normal Range of Motion, Non Tender, No Calf Tenderness, No Pedal Edema Neurologic/Psychiatric: Alert, Oriented x3, No Motor/Sensory Deficits, Normal Mood/Affect Skin: Warm/Dry Lymphatic: No Adenopathy Results Lab Laboratory Tests 05/26/17 04:09: White Blood Count 16.3H, Red Blood Count 3.83L, Hemoglobin 11.8, Hematocrit 35, Mean Corpuscular Volume 92, Mean Corpuscular Hemoglobin 31, Mean Corpuscular Hemoglobin Concent 33, Red Cell Distribution Width 14.2, Platelet Count 543H, Mean Platelet Volume 9.6, Sodium Level 137, Potassium Level 4.0, Chloride Level 104, Carbon Dioxide Level 21, Anion Gap 12, Blood Urea Nitrogen 16, Creatinine 0.85, Estimat Glomerular Filtration Rate > 60, BUN/Creatinine Ratio 19, Glucose Level 137H, Calcium Level 9.7, Total Bilirubin 0.3, Aspartate Amino Transf (AST/ SGOT) 19, Alanine Aminotransferase (ALT/SGPT) 14, Alkaline Phosphatase 66, Total Protein 7.0, Albumin 3.3 Microbiology 05/23/17 Blood Culture - Preliminary, Resulted No growth 05/23/17 Urine Culture - Final, Complete Nonenterococcus (Chains Cocci) Probable E.coli Strep, Beta Hemolytic Group B Assessment/Plan Assessment/Plan Assess & Plan/Chief Complaint PNEUMONIA - MULTILOBAR HYPOXIA LYMPHADENOPATHY RHEUMATOID ARTHRITIS CHRONIC IMMUNOSUPPRESSION UTI - PROBABLE ECOLI PNEUMONIA - ON PNEUMONIA PROTOCOL, CONTINUE CURRENT TREATMENT - STOPPED GENTAMICIN - CHECK SERIAL CHEST XRAYS. - NO IMPROVEMENT OVER THE PAST 24 HOURS ON CHEST XRAY - CONTINUE WITH ACAPELLA AND STEROIDS IV HYPOXIA - IMPROVED ON OXYGEN - CONTINUE CURRENT MANAGEMENT - MONITOR OXYGEN. LYMPHADENOPATHY - IN CHEST ON CT SCAN - WILL REPEAT IMAGING IN ONE MONTH AFTER HEALING FROM PNEUMONIA TO SEE IF LYMPHADENOPATHY IS INFLAMMATORY OR POSSIBLY MALIGNANT - DISCUSSED THIS WITH THE PATIENT TODAY - HER SISTER WAS PRESENT. RHEUMATOID ARTHRITIS - HOLD METHOTREXATE TODAY. UTI - ECOLI - CONTINUE WITH CURRENT ANTIBIOTIC SELECTION - LEVAQUIN AND CEFEPIME Clinical Quality Measures DVT/VTE Risk/Contraindication: Risk Factor Score Per Nursin RFS Level Per Nursing on Admit: 3=High JACKY ROGERS MD May 26, 2017 08:03
[2017-05-26] MEDS: ENOXAPARIN 40 MG/0.4 ML (LOVENOX) SYR SC SCH (08:32)
[2017-05-26] MEDS: CEFEPIME 2 GM/NS 50 ML IVPB IV SCH ×4 (08:32→19:58)
[2017-05-26] MEDS: FOLIC ACID 1 MG TAB PO SCH (08:33)
--- NOTE | 2017-05-26 08:48 | Diagnostic Imaging Report ---
PA and lateral views of the chest. INDICATION: Pneumonia. Comparison 05/25/2017. FINDINGS: There is slight improvement in extensive bilateral infiltrates seen. It has mixed interstitial and airspace components and may relate to an atypical or viral infection. The heart size is normal. Tiny right pleural effusion is present. No pneumothorax. Mediastinum and raphael appear unremarkable. IMPRESSION: There is mild improvement in bilateral extensive mixed infiltrates. Dictated by: Dictated on workstation # [id number]
[2017-05-26] MEDS: NS IV 1000 ML 1,000 ML IV SCH (10:01)
--- NOTE | 2017-05-26 11:46 | Physical Therapy Daily Note ---
PT Daily Note-Current Subjective Pt sitting up in bed upon arrival. Pt agreed to PT for ambulation. Pain Location: No Pain Reported Mental Status Patient Orientation: Person, Place, Situation Attachments: Oxygen, IV Transfers Functional [place] Measure 0=Not Assessed/NA 4=Minimal Assistance 1=Total Assistance 5=Supervision or Setup 2=Maximal Assistance 6=Modified [place] 3=Moderate Assistance 7=Complete IndependenceIRFPAI Quality Coding Scale 6 Independent with activity with or without an assistive device 5 Patient requires set up or clean up by helper. Patient completes activity by themselves 4 Supervision or touching assist (CGA). [place] provide cues , steadying assist 3 The helper provides less than half the effort to complete the activity 2 The helper provides more than half the effort to complete the activity 1 Dependent. The helper does all the effort to complete an activity 7 Patient refused to complete or attempt activity 9 The patient did not perform the activity before the current illness or injury 88 Not attempted due to Medical conditions or safety concerns Scootin Sit to/from Stand: 6 Weight Bearing Weight Bearing Restriction: Full Weight Bearing Location Restriction: LE Bilateral Gait Training Distance (FIM): 3=150 ft Distance: 250' Gait Level of Assist: 5 Gait Persons Needed: 1 Gait Assistive Device: FWW Pt has normalized gait pattern while ambulating although pt doesn't feel comfortable/confident w/o it yet. Treatments Pt transferred from Supine to EOB to Standing using FWW at [facility]. PT ambulated in hallway using FWW at [facility], EFFICIENCY MINER BLASTING managed IV pole & O2 tank. Pt returned to room to rest at EOB due to fatigue. RT enters to start tx at end of PT tx. Pt is left with RT giving tx and all needs met. Assessment Current Status: Good Progress Pt reports breathing better and not as SOB as well as pt is improving with ambulation. PT Primer Charger Goals Primer Charger Goals PT Nursing Home Goals Time Frame: Jun 04, 2017 Transfers (B,C,W/C) (FIM): 7 Gait (FIM): 7 Gait distance (FIM): 3=150 ft Distance: 250' Gait Level of Assist: 7 Gait Assistive Device: None PT Plan Problem List Problem List: Activity Tolerance, Balance, Gait Treatment/Plan Treatment Plan: Continue Plan of Care Treatment Plan: Education, Functional Activity Trevor, Functional Strength, Gait , Safety, Therapeutic Exercise, Transfers Treatment Duration: Jun 04, 2017 Frequency: 6 times per week Estimated Hrs Per Day: .25 hour per day Patient and/or Family Agrees t: Yes Safety Risks/Education Patient Education: Gait Training, Correct Positioning, Safety Issues Teaching Recipient: Patient Teaching Methods: Discussion Response to Teaching: Verbalize Understanding Time/GCodes Time In: 1100 Time Out: 1125 Total Billed Treatment Time: 25 Total Billed Treatment visit, GT x2 (25m) PILAR ELLIOTT EFFICIENCY MINER BLASTING May 26, 2017 11:45
[2017-05-26] MEDS: LEVOFLOXACIN 750 MG TAB (LEVAQUIN) PO SCH (15:58)
[2017-05-26 16:00] VITALS: BP 114/67
[2017-05-26 23:50] VITALS: BP 123/65
[2017-05-27] MEDS: methylPREDNISolone 40 MG/ML (Solu-MEDROL) VIAL IV SCH ×2 (05:32→18:05)
[2017-05-27] MEDS: NS IV 1000 ML 1,000 ML IV SCH (05:32)
[2017-05-27 05:56] LABS: RED BLOOD COUNT 3.66 10^6/uL (4.35-5.85); RED CELL DISTRIBUTION WIDTH 14.2 % (10.0-14.5); WHITE BLOOD COUNT 19.9 10^3/uL (4.3-11.0)
[2017-05-27 06:24] LABS: ALANINE AMINOTRANSFERASE 14 U/L (0-55); ALBUMIN 3.1 GM/DL (3.2-4.5); ANION GAP 10 MMOL/L (5-14); ASPARTATE AMINO TRANSFERASE 18 U/L (5-34); BILIRUBIN,TOTAL 0.3 MG/DL (0.1-1.0); BLOOD UREA NITROGEN 21 MG/DL (7-18); BUN/CREATININE RATIO 24; CALCIUM 9.6 MG/DL (8.5-10.1); CARBON DIOXIDE 22 MMOL/L (21-32); CHLORIDE 106 MMOL/L (98-107); CREATININE SERUM 0.87 MG/DL (0.60-1.30); GFR ESTIMATED > 60; GLUCOSE 143 MG/DL (70-105); SODIUM 138 MMOL/L (135-145); TOTAL PROTEIN 6.4 GM/DL (6.4-8.2)
[2017-05-27] MEDS: RT-ALBUTEROL/IPRATROPIUM 3 ML (DUONEB) VIAL IH SCH ×4 (06:52→19:26)
--- NOTE | 2017-05-27 07:15 | Diagnostic Imaging Report ---
Indication: Shortness of breath. Comparison: 05/26/2017 Findings: Multifocal heterogeneous pulmonary opacities have not significantly changed. Probable small right pleural effusion is similar. No pneumothorax. Grossly stable cardiac mediastinal silhouette. Impression: 1. Unchanged multifocal bilateral pulmonary opacities compatible with the patient's reported history of multifocal pneumonia. Dictated by: Dictated on workstation # [id number]
--- NOTE | 2017-05-27 08:38 | Progress Note (SOAP) ---
Subjective Date Seen by Provider: May 27, 2017 Time Seen by Provider: 08:38 Subjective/Events-last exam PT REPORTS THAT SHE IS FEELING GOOD, SHE STATES THAT SHE IS NOT HAVING MUCH SHORTNESS OF BREAHT, HER OXYGEN WAS DECREASED TODAY AND SHE IS NOT HAVING TROUBLE WITH THE DECREASE IN OXYGEN. SHE REPORTS STILL NO BOWEL MOVEMENT. Review of Systems General: Fatigue HEENT: No Head Aches Pulmonary: Dyspnea, Cough Cardiovascular: No: Chest Pain, Palpitations Gastrointestinal: No: Abdominal Pain, Nausea Genitourinary: No Dysuria Neurological: Weakness, No: Confusion Objective Exam Vital Signs Date Time Temp Pulse Resp B/P (MAP) Pulse Ox O2 Delivery O2 Flow Rate FiO2 05/26/17 23:50 98.4 84 22 123/65 93 Nasal Cannula 4.00 05/26/17 20:00 Nasal Cannula 6.00 05/26/17 18:58 92 Nasal Cannula 6.00 05/26/17 16:00 98.4 92 20 114/67 92 Nasal Cannula 4.00 05/26/17 14:51 90 Nasal Cannula 6.00 05/26/17 11:25 94 Nasal Cannula 6.00 I & O 05/27/17 07:00 Intake Total 2680 ml Output Total 2300 ml Balance 380 ml Capillary Refill : Less Than 3 Seconds General Appearance: No Apparent Distress, WD/WN HEENT: PERRL/EOMI, Pharynx Normal Neck: Full Range of Motion, Supple Respiratory: Chest Non Tender, Lungs Clear, Normal Breath Sounds Cardiovascular: Regular Rate, Rhythm Gastrointestinal: normal bowel sounds, non tender, soft, no organomegaly, no pulsatile mass Extremity: Normal Capillary Refill, No Pedal Edema Neurologic/Psychiatric: Alert, Oriented x3, No Motor/Sensory Deficits Skin: Warm/Dry Lymphatic: No Adenopathy Results Lab Laboratory Tests 05/27/17 05:37: White Blood Count 19.9H, Red Blood Count 3.66L, Hemoglobin 11.3L, Hematocrit 34L , Mean Corpuscular Volume 93, Mean Corpuscular Hemoglobin 31, Mean Corpuscular Hemoglobin Concent 33, Red Cell Distribution Width 14.2, Platelet Count 591H, Mean Platelet Volume 9.0, Sodium Level 138, Potassium Level 4.0, Chloride Level 106, Carbon Dioxide Level 22, Anion Gap 10, Blood Urea Nitrogen 21H, Creatinine 0.87, Estimat Glomerular Filtration Rate > 60, BUN/Creatinine Ratio 24, Glucose Level 143H, Calcium Level 9.6, Total Bilirubin 0.3, Aspartate Amino Transf (AST/ SGOT) 18, Alanine Aminotransferase (ALT/SGPT) 14, Alkaline Phosphatase 64, Total Protein 6.4, Albumin 3.1L Microbiology 05/23/17 Blood Culture - Preliminary, Resulted No growth 05/23/17 Urine Culture - Final, Complete Nonenterococcus (Chains Cocci) Probable E.coli Strep, Beta Hemolytic Group B Assessment/Plan Assessment/Plan Assess & Plan/Chief Complaint PNEUMONIA - MULTILOBAR HYPOXIA LYMPHADENOPATHY RHEUMATOID ARTHRITIS CHRONIC IMMUNOSUPPRESSION UTI - ECOLI PNEUMONIA - ON PNEUMONIA PROTOCOL, CONTINUE CURRENT TREATMENT - STOPPED GENTAMICIN - CHECK SERIAL CHEST XRAYS. - VERY SLIGHT IMPROVEMENT OVER THE PAST 24 HOURS ON CHEST XRAY - CONTINUE WITH ACAPELLA AND STEROIDS IV - DOSE DECREASED TODAY. CONTINUE TO WEAN OXYGEN HYPOXIA - IMPROVED ON OXYGEN - CONTINUE CURRENT MANAGEMENT - MONITOR OXYGEN. LYMPHADENOPATHY - IN CHEST ON CT SCAN - WILL REPEAT IMAGING IN ONE MONTH AFTER HEALING FROM PNEUMONIA TO SEE IF LYMPHADENOPATHY IS INFLAMMATORY OR POSSIBLY MALIGNANT - DISCUSSED THIS WITH THE PATIENT TODAY - HER SISTER WAS PRESENT. RHEUMATOID ARTHRITIS - HOLD METHOTREXATE. UTI - ECOLI - CONTINUE WITH CURRENT ANTIBIOTIC SELECTION - LEVAQUIN AND CEFEPIME CONSTIPATION - SENNA, DULCOLAX, WILL SEE IF BOWEL MOVEMENT TOMORROW. Clinical Quality Measures DVT/VTE Risk/Contraindication: Risk Factor Score Per Nursin RFS Level Per Nursing on Admit: 3=High JACKY ROGERS MD May 27, 2017 08:38
[2017-05-27] MEDS: FOLIC ACID 1 MG TAB PO SCH (08:40)
[2017-05-27] MEDS: ENOXAPARIN 40 MG/0.4 ML (LOVENOX) SYR SC SCH ×2 (08:41→15:36)
[2017-05-27] MEDS: CEFEPIME 2 GM/NS 50 ML IVPB IV SCH ×4 (08:41→20:26)
[2017-05-27] MEDS: SENNA W/DOCUSATE (SENOKOT S) TABLET PO NR ×2 (08:50→12:23)
[2017-05-27 08:54] VITALS: BP 139/81
--- NOTE | 2017-05-27 11:38 | Physical Therapy Daily Note ---
PT Daily Note-Current Subjective Patient in bed pre tx, agrees to PT, has no complaints of pain. Patient wants to put her jeans on and does so without assistance. Appearance Patient in recliner post tx with nurse call, phone, tray, all needs met. Mental Status Patient Orientation: Normal For Age Attachments: Oxygen, IV 6L of O2 Transfers Functional [place] Measure 0=Not Assessed/NA 4=Minimal Assistance 1=Total Assistance 5=Supervision or Setup 2=Maximal Assistance 6=Modified [place] 3=Moderate Assistance 7=Complete IndependenceIRFPAI Quality Coding Scale 6 Independent with activity with or without an assistive device 5 Patient requires set up or clean up by helper. Patient completes activity by themselves 4 Supervision or touching assist (CGA). [place] provide cues , steadying assist 3 The helper provides less than half the effort to complete the activity 2 The helper provides more than half the effort to complete the activity 1 Dependent. The helper does all the effort to complete an activity 7 Patient refused to complete or attempt activity 9 The patient did not perform the activity before the current illness or injury 88 Not attempted due to Medical conditions or safety concerns Transfers (B, C, W/C) (FIM): 6 Scootin Rollin Supine to/from Sit: 6 Sit to/from Stand: 6 Gait Training Gait (FIM): 5 Distance: 400' Gait Level of Assist: 5 Gait Persons Needed: 1 Gait Assistive Device: FWW Has an IV pole and O2 tank to push. Patient did have on moment of unsteadiness with ambulation but she did not need assist to regain her balance. Treatments bed mobility, transfers, ambulation Assessment Current Status: Fair Progress improving endurance and ambulation PT Snf Goals Big Data Engineer Goals PT Snf Goals Time Frame: Jun 04, 2017 Transfers (B,C,W/C) (FIM): 7 Gait (FIM): 7 Gait distance (FIM): 3=150 ft Distance: 250' Gait Level of Assist: 7 Gait Assistive Device: None PT Plan Problem List Problem List: Activity Tolerance, Functional Strength, Safety, Balance, Gait, Transfer Treatment/Plan Treatment Plan: Continue Plan of Care Treatment Plan: Education, Functional Activity Trevor, Functional Strength, Gait , Safety, Therapeutic Exercise, Transfers Treatment Duration: Jun 04, 2017 Frequency: 6 times per week Estimated Hrs Per Day: .25 hour per day Patient and/or Family Agrees t: Yes Safety Risks/Education Patient Education: Gait Training, Transfer Techniques, Correct Positioning, Safety Issues Teaching Recipient: Patient Teaching Methods: Demonstration, Discussion Response to Teaching: Reinforcement Needed Time/GCodes Time In: 1115 Time Out: 1130 Total Billed Treatment Time: 15 Total Billed Treatment 1 visit GT 15' BRITTANY SNYDER PT May 27, 2017 11:38
[2017-05-27] MEDS: IBUPROFEN 800 MG (MOTRIN) TAB PO SCH ×2 (12:23→18:05)
[2017-05-27] MEDS: LACTOBACILLUS Acidoph/Bulgar (LACTINEX/FLORANEX) TAB PO SCH ×2 (12:23→15:35)
[2017-05-27] MEDS: LEVOFLOXACIN 750 MG TAB (LEVAQUIN) PO SCH (15:35)
[2017-05-27 16:00] VITALS: BP 112/54
[2017-05-27] MEDS: SENNA W/DOCUSATE (SENOKOT S) TABLET PO PRN (20:28)
[2017-05-28 00:51] VITALS: BP 125/67
[2017-05-28 06:08] LABS: MEAN PLATELET VOLUME 9.3 FL (7.4-10.4); RED BLOOD COUNT 3.49 10^6/uL (4.35-5.85); RED CELL DISTRIBUTION WIDTH 14.5 % (10.0-14.5); WHITE BLOOD COUNT 15.6 10^3/uL (4.3-11.0)
[2017-05-28 06:24] LABS: ANION GAP 12 MMOL/L (5-14); BLOOD UREA NITROGEN 23 MG/DL (7-18); BUN/CREATININE RATIO 30; CALCIUM 8.6 MG/DL (8.5-10.1); CARBON DIOXIDE 17 MMOL/L (21-32); CHLORIDE 110 MMOL/L (98-107); CREATININE SERUM 0.77 MG/DL (0.60-1.30); GFR ESTIMATED > 60; GLUCOSE 121 MG/DL (70-105); POTASSIUM 4.2 MMOL/L (3.6-5.0); SODIUM 139 MMOL/L (135-145)
[2017-05-28] MEDS: LACTOBACILLUS Acidoph/Bulgar (LACTINEX/FLORANEX) TAB PO SCH ×3 (06:40→17:40)
[2017-05-28] MEDS: methylPREDNISolone 40 MG/ML (Solu-MEDROL) VIAL IV SCH ×2 (06:40→18:52)
[2017-05-28] MEDS: IBUPROFEN 800 MG (MOTRIN) TAB PO SCH ×3 (06:40→17:40)
[2017-05-28] MEDS: RT-ALBUTEROL/IPRATROPIUM 3 ML (DUONEB) VIAL IH SCH ×4 (07:20→19:06)
[2017-05-28 08:10] VITALS: BP 133/80
--- NOTE | 2017-05-28 08:24 | Diagnostic Imaging Report ---
INDICATION: Dyspnea, followup pneumonia. DISCUSSION: Two views of the chest were obtained, comparison 05/27/2017. Patchy airspace consolidation is noted again bilaterally and diffusely involving all 5 lobes. Findings could be seen with multifocal pneumonia, given the patient's history. No adverse interval change. No pleural fluid or pneumothorax. Stable normal heart size. No osseous abnormality. IMPRESSION: 1. Bilateral pulmonary infiltrates, stable. Dictated by: Dictated on workstation # [id number]
--- NOTE | 2017-05-28 09:12 | Progress Note (SOAP) ---
Subjective Date Seen by Provider: May 28, 2017 Time Seen by Provider: 09:15 Subjective/Events-last exam PT REPORTS THAT SHE HAS BEEN UP MOVING AROUND MORE IN HER ROOM. SHE STATES THAT SHE HAS NOT HAD ANY DIZZINESS, CHEST PAIN, OR AN INCREASE IN HER SHORTNESS OF BREATH. SHE REPORTS THAT SHE HAS A COUGH, BUT IT IS BETTER. SHE REPORTS STILL NO BOWEL MOVEMENT, BUT DID TAKE THE MEDICATION YESTERDAY. Review of Systems General: Fatigue HEENT: No Head Aches Pulmonary: Dyspnea, Cough Cardiovascular: No: Chest Pain Gastrointestinal: Constipation, No: Abdominal Pain, Nausea Genitourinary: No Dysuria Neurological: Weakness Objective Exam Vital Signs Date Time Temp Pulse Resp B/P (MAP) Pulse Ox O2 Delivery O2 Flow Rate FiO2 05/28/17 07:20 98 Nasal Cannula 6.00 05/28/17 00:51 98.1 84 19 125/67 93 Nasal Cannula 4.00 05/27/17 20:00 Nasal Cannula 6.00 05/27/17 19:26 96 Nasal Cannula 6.00 05/27/17 16:00 97.8 75 18 112/54 97 Nasal Cannula 4.00 05/27/17 14:50 94 Nasal Cannula 6.00 05/27/17 11:06 95 Nasal Cannula 6.00 I & O 05/28/17 07:00 Intake Total 1880 ml Output Total 2000 ml Balance -120 ml Capillary Refill : Less Than 3 Seconds General Appearance: No Apparent Distress, WD/WN HEENT: PERRL/EOMI, Pharynx Normal Neck: Full Range of Motion, Normal Inspection, Non Tender, Supple Respiratory: Chest Non Tender, Crackles (IN BASES ONLY - IT HAS CLEARED OVER THE PAST 24 HOURS), Decreased Breath Sounds Cardiovascular: Regular Rate, Rhythm, No Edema Gastrointestinal: normal bowel sounds, non tender, soft, no organomegaly Extremity: Normal Capillary Refill, No Pedal Edema Neurologic/Psychiatric: Alert, Oriented x3, No Motor/Sensory Deficits, Normal Mood/Affect Skin: Normal Color, Warm/Dry Lymphatic: No Adenopathy Results Lab Laboratory Tests 05/28/17 05:35: White Blood Count 15.6H, Red Blood Count 3.49L, Hemoglobin 10.7L, Hematocrit 33L , Mean Corpuscular Volume 95, Mean Corpuscular Hemoglobin 31, Mean Corpuscular Hemoglobin Concent 32, Red Cell Distribution Width 14.5, Platelet Count 522H, Mean Platelet Volume 9.3, Sodium Level 139, Potassium Level 4.2, Chloride Level 110H, Carbon Dioxide Level 17L, Anion Gap 12, Blood Urea Nitrogen 23H, Creatinine 0.77, Estimat Glomerular Filtration Rate > 60, BUN/Creatinine Ratio 30, Glucose Level 121H, Calcium Level 8.6 Microbiology 05/23/17 Blood Culture - Preliminary, Resulted No growth 05/23/17 Urine Culture - Final, Complete Nonenterococcus (Chains Cocci) Probable E.coli Strep, Beta Hemolytic Group B Assessment/Plan Assessment/Plan Assess & Plan/Chief Complaint PNEUMONIA - MULTILOBAR HYPOXIA LYMPHADENOPATHY RHEUMATOID ARTHRITIS CHRONIC IMMUNOSUPPRESSION UTI - PROBABLE ECOLI PNEUMONIA - ON PNEUMONIA PROTOCOL, CONTINUE CURRENT TREATMENT - STOPPED GENTAMICIN - CHECK SERIAL CHEST XRAYS. - SLIGHT IMPROVEMENT OVER THE PAST 48HOURS ON CHEST XRAY - CONTINUE WITH ACAPELLA AND STEROIDS IV - DOSE DECREASED AGAIN - STOP DATE OF TOMORROW HYPOXIA - IMPROVED ON OXYGEN - CONTINUE CURRENT MANAGEMENT - MONITOR OXYGEN. LYMPHADENOPATHY - IN CHEST ON CT SCAN - WILL REPEAT IMAGING IN ONE MONTH AFTER HEALING FROM PNEUMONIA TO SEE IF LYMPHADENOPATHY IS INFLAMMATORY OR POSSIBLY MALIGNANT - DISCUSSED THIS WITH THE PATIENT TODAY - HER SISTER WAS PRESENT. RHEUMATOID ARTHRITIS - HOLD METHOTREXATE TODAY. UTI - ECOLI - CONTINUE WITH CURRENT ANTIBIOTIC SELECTION - LEVAQUIN AND CEFEPIME CONSTIPATION - PT AGREED TO TAKE MEDICATION TODAY Clinical Quality Measures DVT/VTE Risk/Contraindication: Risk Factor Score Per Nursin RFS Level Per Nursing on Admit: 3=High JACKY ROGERS MD May 28, 2017 09:12
[2017-05-28] MEDS: ENOXAPARIN 40 MG/0.4 ML (LOVENOX) SYR SC SCH (09:34)
[2017-05-28] MEDS: SENNA W/DOCUSATE (SENOKOT S) TABLET PO PRN (09:34)
[2017-05-28] MEDS: FOLIC ACID 1 MG TAB PO SCH (09:34)
[2017-05-28] MEDS: CEFEPIME 2 GM/NS 50 ML IVPB IV SCH ×4 (09:36→19:52)
--- NOTE | 2017-05-28 10:00 | Physical Therapy Daily Note ---
PT Daily Note-Current Subjective Pt. agrees to rx, anxious to be able to walk without FWW. States she may DC Sun or Mon. Pain Numeric Pain Scale: 0-No Pain Mental Status Patient Orientation: Normal For Age Attachments: Oxygen (4L), IV Transfers Functional [place] Measure 0=Not Assessed/NA 4=Minimal Assistance 1=Total Assistance 5=Supervision or Setup 2=Maximal Assistance 6=Modified [place] 3=Moderate Assistance 7=Complete IndependenceIRFPAI Quality Coding Scale 6 Independent with activity with or without an assistive device 5 Patient requires set up or clean up by helper. Patient completes activity by themselves 4 Supervision or touching assist (CGA). [place] provide cues , steadying assist 3 The helper provides less than half the effort to complete the activity 2 The helper provides more than half the effort to complete the activity 1 Dependent. The helper does all the effort to complete an activity 7 Patient refused to complete or attempt activity 9 The patient did not perform the activity before the current illness or injury 88 Not attempted due to Medical conditions or safety concerns Transfers (B, C, W/C) (FIM): 6 in out bed and chair Mod I Gait Training Gait (FIM): 5 Gait Assistive Device: FWW 400ft FWW O2 4L, min SOB, CGA and assist IV Exercises Standing: Heel/toe raises, Mini squats Standing Reps: 8 Treatments balance challenges in stance at EOB, pt LOB with eyes closed and narrow MARQUITA challenge therefore FWW used for gait as well as for energy conservation Assessment Current Status: Good Progress some LOB without FWW, pt. encouraged to cont its use until strength improves etc PT Oral Hygienist Goals Long-Term Goals PT Long-Term Goals Time Frame: Jun 04, 2017 Transfers (B,C,W/C) (FIM): 7 Gait (FIM): 7 Gait distance (FIM): 3=150 ft Distance: 250' Gait Level of Assist: 7 Gait Assistive Device: None PT Plan Treatment/Plan Treatment Plan: Continue Plan of Care Treatment Plan: Education, Functional Activity Trevor, Functional Strength, Gait , Safety, Therapeutic Exercise, Transfers Treatment Duration: Jun 04, 2017 Frequency: 6 times per week Estimated Hrs Per Day: .25 hour per day Patient and/or Family Agrees t: Yes Safety Risks/Education Patient Education: Gait Training, Transfer Techniques, Correct Positioning, Disease Process, Safety Issues Teaching Recipient: Patient Teaching Methods: Demonstration, Discussion Response to Teaching: Verbalize Understanding, Return Demonstration, Reinforcement Needed discussed energy conservation and use of FWW and balance and safety issues Time/GCodes Time In: 930 Time Out: 1000 Total Billed Treatment Time: 30 Total Billed Treatment 1,FA10,GT20 G Codes Necessary: ZULEYKA Miller PYTHON ARCHITECT May 28, 2017 10:00
[2017-05-28 16:35] VITALS: BP 130/63
[2017-05-28] MEDS: LEVOFLOXACIN 750 MG TAB (LEVAQUIN) PO SCH (17:40)
[2017-05-28] MEDS: NS IV 1000 ML 1,000 ML IV SCH (17:40)
[2017-05-29] VITALS: BP 156/88
[2017-05-29] MEDS: methylPREDNISolone 40 MG/ML (Solu-MEDROL) VIAL IV SCH (06:03)
[2017-05-29] MEDS: IBUPROFEN 800 MG (MOTRIN) TAB PO SCH ×3 (06:03→16:19)
[2017-05-29] MEDS: LACTOBACILLUS Acidoph/Bulgar (LACTINEX/FLORANEX) TAB PO SCH ×3 (06:03→16:18)
[2017-05-29 06:06] LABS: ANION GAP 9 MMOL/L (5-14); BLOOD UREA NITROGEN 19 MG/DL (7-18); BUN/CREATININE RATIO 24; CALCIUM 8.5 MG/DL (8.5-10.1); CARBON DIOXIDE 21 MMOL/L (21-32); CHLORIDE 110 MMOL/L (98-107); CREATININE SERUM 0.78 MG/DL (0.60-1.30); GFR ESTIMATED > 60; GLUCOSE 130 MG/DL (70-105); POTASSIUM 4.3 MMOL/L (3.6-5.0); SODIUM 140 MMOL/L (135-145)
[2017-05-29 06:09] LABS: MEAN PLATELET VOLUME 9.3 FL (7.4-10.4); RED BLOOD COUNT 3.5 10^6/uL (4.35-5.85); RED CELL DISTRIBUTION WIDTH 14.6 % (10.0-14.5); WHITE BLOOD COUNT 15.2 10^3/uL (4.3-11.0)
[2017-05-29] MEDS: RT-ALBUTEROL/IPRATROPIUM 3 ML (DUONEB) VIAL IH SCH ×4 (07:08→19:18)
[2017-05-29 08:00] VITALS: BP 166/63
[2017-05-29] MEDS: NS IV 1000 ML 1,000 ML IV SCH (09:20)
[2017-05-29] MEDS: CEFEPIME 2 GM/NS 50 ML IVPB IV SCH ×4 (09:20→19:34)
[2017-05-29] MEDS: FOLIC ACID 1 MG TAB PO SCH (09:21)
[2017-05-29] MEDS: ENOXAPARIN 40 MG/0.4 ML (LOVENOX) SYR SC SCH (09:21)
--- NOTE | 2017-05-29 09:58 | Diagnostic Imaging Report ---
INDICATION: Multifocal pneumonia. Surveillance imaging. Cough. COMPARISON: 05/28/2017. FINDINGS: Multifocal heterogeneous consolidations within the bilateral upper lobes and left midlung have improved but persist. No pleural effusion or pneumothorax. Stable cardiomediastinal silhouette. IMPRESSION: Improving but persistent multifocal pneumonia. Dictated by: Dictated on workstation # [id number]
--- NOTE | 2017-05-29 10:28 | Progress Note (SOAP) ---
Subjective Date Seen by Provider: May 29, 2017 Time Seen by Provider: 10:30 Subjective/Events-last exam PT REPORTS THAT SHE IS EVEN BETTER TODAY - SHE WAS TAKEN OFF OF OXYGEN BY THE RESPIRATORY THERAPIST FOR A TRIAL OXYGEN SATURATION OFF OF THE OXYGEN. SHE REPORTS THAT SHE FEELS LIKE SHE WILL HAVE A BOWEL MOVEMENT TODAY. SHE DENIES ABDOMINAL PAIN, CHEST PAIN, SHORTNESS OF BREATH. Review of Systems General: Fatigue HEENT: No Head Aches Pulmonary: No Dyspnea, Cough Cardiovascular: No: Chest Pain, Palpitations Gastrointestinal: Constipation, No: Abdominal Pain, Nausea Genitourinary: No Dysuria, No Frequency Neurological: Weakness, No: Confusion Objective Exam Vital Signs Date Time Temp Pulse Resp B/P (MAP) Pulse Ox O2 Delivery O2 Flow Rate FiO2 05/29/17 08:00 Nasal Cannula 6.00 05/29/17 08:00 97.8 78 20 166/63 96 Nasal Cannula 2.00 05/29/17 07:08 95 Nasal Cannula 2.00 05/29/17 00:00 97.4 80 17 156/88 96 Nasal Cannula 2.00 05/28/17 19:50 Nasal Cannula 2.00 05/28/17 19:06 94 Nasal Cannula 2.00 05/28/17 16:35 97.8 81 20 130/63 93 Nasal Cannula 4.00 05/28/17 15:16 95 Nasal Cannula 4.00 I & O 05/29/17 07:00 Intake Total 3120 ml Output Total 1700 ml Balance 1420 ml Capillary Refill : Less Than 3 Seconds General Appearance: No Apparent Distress, WD/WN HEENT: PERRL/EOMI, Pharynx Normal Neck: Full Range of Motion, Supple Respiratory: Chest Non Tender, Decreased Breath Sounds (IN BASES) Cardiovascular: Regular Rate, Rhythm Gastrointestinal: normal bowel sounds, non tender, soft, no organomegaly Extremity: Normal Capillary Refill, Non Tender, No Calf Tenderness, No Pedal Edema Neurologic/Psychiatric: Alert, Oriented x3, No Motor/Sensory Deficits, Normal Mood/Affect Skin: Normal Color, Warm/Dry Lymphatic: No Adenopathy Results Lab Laboratory Tests 05/29/17 05:14: White Blood Count 15.2H, Red Blood Count 3.50L, Hemoglobin 10.7L, Hematocrit 33L , Mean Corpuscular Volume 94, Mean Corpuscular Hemoglobin 31, Mean Corpuscular Hemoglobin Concent 32, Red Cell Distribution Width 14.6H, Platelet Count 500H, Mean Platelet Volume 9.3, Sodium Level 140, Potassium Level 4.3, Chloride Level 110H, Carbon Dioxide Level 21, Anion Gap 9, Blood Urea Nitrogen 19H, Creatinine 0.78, Estimat Glomerular Filtration Rate > 60, BUN/Creatinine Ratio 24, Glucose Level 130H, Calcium Level 8.5 Microbiology 05/23/17 Blood Culture - Final, Complete No growth 05/23/17 Urine Culture - Final, Complete Nonenterococcus (Chains Cocci) Probable E.coli Strep, Beta Hemolytic Group B Assessment/Plan Assessment/Plan Assess & Plan/Chief Complaint PNEUMONIA - MULTILOBAR HYPOXIA LYMPHADENOPATHY RHEUMATOID ARTHRITIS CHRONIC IMMUNOSUPPRESSION UTI - PROBABLE ECOLI CONSTIPATION PNEUMONIA - ON PNEUMONIA PROTOCOL, CONTINUE CURRENT TREATMENT - STOP GENTAMICIN - CHECK SERIAL CHEST XRAYS. - SLIGHT BUT CONTINUAL IMPROVEMENT OVER THE PAST 24 HOURS ON CHEST XRAY - CONTINUE WITH ACAPELLA, STOP STEROIDS HYPOXIA - IMPROVED - CONTINUE CURRENT MANAGEMENT - MONITOR OXYGEN LEVEL - MAY NEED TO DO AMBULATORY OXYGEN CHECK TO SEE IF SHE NEEDS OXYGEN WHILE AMBULATING/ ACTIVE AT HOME. LYMPHADENOPATHY - IN CHEST ON CT SCAN - WILL REPEAT IMAGING IN ONE MONTH AFTER HEALING FROM PNEUMONIA TO SEE IF LYMPHADENOPATHY IS INFLAMMATORY OR POSSIBLY MALIGNANT - DISCUSSED THIS WITH THE PATIENT TODAY - HER SISTER WAS PRESENT. RHEUMATOID ARTHRITIS - HOLD METHOTREXATE CONSTIPATION - MIRALAX TONIGHT Clinical Quality Measures DVT/VTE Risk/Contraindication: Risk Factor Score Per Nursin RFS Level Per Nursing on Admit: 3=High JACKY ROGERS MD May 29, 2017 10:28
[2017-05-29] MEDS ORDERED: BISACODYL 10 MG SUPP (DULCOLAX) PR PRN (10:30)
--- NOTE | 2017-05-29 10:48 | Physical Therapy Daily Note ---
PT Daily Note-Current Subjective Pt. sitting on EOB playing cards with friends, states she is ready to walk and wants to go without FWW Pain Numeric Pain Scale: 0-No Pain Mental Status Patient Orientation: Normal For Age Attachments: Oxygen (2L) Transfers Functional [place] Measure 0=Not Assessed/NA 4=Minimal Assistance 1=Total Assistance 5=Supervision or Setup 2=Maximal Assistance 6=Modified [place] 3=Moderate Assistance 7=Complete IndependenceIRFPAI Quality Coding Scale 6 Independent with activity with or without an assistive device 5 Patient requires set up or clean up by helper. Patient completes activity by themselves 4 Supervision or touching assist (CGA). [place] provide cues , steadying assist 3 The helper provides less than half the effort to complete the activity 2 The helper provides more than half the effort to complete the activity 1 Dependent. The helper does all the effort to complete an activity 7 Patient refused to complete or attempt activity 9 The patient did not perform the activity before the current illness or injury 88 Not attempted due to Medical conditions or safety concerns Transfers (B, C, W/C) (FIM): 7 all TRFs indep Gait Training Gait (FIM): 6 Distance (FIM): 3=150 ft (300) Gait Assistive Device: FWW 300ft no AD, SBA to CGA with assist for O2 2L, no SOB Balance Special Test Comments narrow MARQUITA test, eyes closed test, heels toe stance test, SLS test all with no LOB Assessment Current Status: Excellent Progress PT Manager Paper Goals Retirement Goals PT Manager Paper Goals Time Frame: Jun 04, 2017 Transfers (B,C,W/C) (FIM): 7 Gait (FIM): 7 Gait distance (FIM): 3=150 ft Distance: 250' Gait Level of Assist: 7 Gait Assistive Device: None PT Plan Treatment/Plan Treatment Plan: Continue Plan of Care Treatment Plan: Education, Functional Activity Trevor, Functional Strength, Gait , Safety, Therapeutic Exercise, Transfers Treatment Duration: Jun 04, 2017 Frequency: 6 times per week Estimated Hrs Per Day: .25 hour per day Patient and/or Family Agrees t: Yes Safety Risks/Education Patient Education: Gait Training, Correct Positioning, Safety Issues Teaching Recipient: Patient Teaching Methods: Demonstration, Discussion Response to Teaching: Verbalize Understanding, Return Demonstration Time/GCodes Time In: 1030 Time Out: 1045 Total Billed Treatment Time: 15 Total Billed Treatment 1,GT15m G Codes Necessary: No LUEBBER, ZULEYKA A INTEGRITY CONSULTANT May 29, 2017 10:48
[2017-05-29] MEDS ORDERED: LACTOBACILLUS Acidoph/Bulgar (LACTINEX/FLORANEX) TAB PO SCH (11:00)
[2017-05-29 15:37] VITALS: BP 121/63
[2017-05-29] MEDS: LEVOFLOXACIN 750 MG TAB (LEVAQUIN) PO SCH (16:18)
[2017-05-29] MEDS: POLYETHYLENE GLYCOL 17 GM (MIRALAX) PACK PO SCH (19:34)
[2017-05-30] VITALS: BP 142/85
[2017-05-30] MEDS: IBUPROFEN 800 MG (MOTRIN) TAB PO SCH ×3 (06:24→16:59)
[2017-05-30] MEDS: LACTOBACILLUS Acidoph/Bulgar (LACTINEX/FLORANEX) TAB PO SCH ×3 (06:24→16:58)
[2017-05-30 06:27] LABS: RED BLOOD COUNT 3.48 10^6/uL (4.35-5.85); RED CELL DISTRIBUTION WIDTH 14.9 % (10.0-14.5)
[2017-05-30 06:49] LABS: ANION GAP 12 MMOL/L (5-14); BLOOD UREA NITROGEN 15 MG/DL (7-18); BUN/CREATININE RATIO 20; CALCIUM 8.1 MG/DL (8.5-10.1); CARBON DIOXIDE 19 MMOL/L (21-32); CHLORIDE 110 MMOL/L (98-107); CREATININE SERUM 0.75 MG/DL (0.60-1.30); GFR ESTIMATED > 60; GLUCOSE 91 MG/DL (70-105); POTASSIUM 3.5 MMOL/L (3.6-5.0); SODIUM 141 MMOL/L (135-145)
[2017-05-30] MEDS: RT-ALBUTEROL/IPRATROPIUM 3 ML (DUONEB) VIAL IH SCH ×4 (06:58→19:08)
--- OUTSIDE RECORDS SUMMARY | 2017-05-30 07:14 | XMS REPORT | Continuity of Care Document ---
Author Author [facility] Organization [facility] Address Unknown Phone Unavailable Allergies Active Description Code Type Severity Reaction Onset Reported/Identified Relationship to Patient Clinical Status Yes No Known Drug Allergies [id number] Drug Allergy Unknown N/ A 09/13/2014 Medications Problems Date Dx Coded Attending Type Code Diagnosis Diagnosed By 09/13/2014 RULA LYNNE, DINAH Yoo Ot 789.03 12/27/2014 ANTOINE LYNNE, PRINCESS Joshua Ot 553.1 12/27/2014 ANTOINE LYNNE, PRINCESS Joshua Ot V72.84 06/05/2015 RASHEL LYNNE, NICOLE Etienne Ot 553.21 06/05/2015 RASHEL LYNNE, NICOLE Etienne Ot V72.63 06/05/2015 RASHEL LYNNE, NICOLE Etienne Ot V74.8 06/05/2015 RASHEL LYNNE, NICOLE Etienne Ot 553.20 06/12/2015 RASHEL LYNNE, NICOLE M Ot 553.21 06/12/2015 RASHEL LYNNE, NICOLE M Ot V72.63 06/12/2015 RASHEL LYNNE, NICOLE M Ot V74.8 06/27/2015 RULA LYNNE, DINAH Yoo Ot 920 06/27/2015 RULA LYNNE, DINAH Yoo Ot 959.01 06/27/2015 RULA LYNNE, DINAH Yoo Ot E000.8 06/27/2015 RULA LYNNE, DINAH Yoo Ot E812.0 06/27/2015 RASHEL LYNNE, NICOLE Etienne Ot 553.21 06/27/2015 RASHEL LYNNE, NICOLE Etienne Ot V72.63 06/27/2015 RASHEL LYNNE, NICOLE M Ot V74.8 07/02/2015 ANTOINE LYNNE, PRINCESS Joshua Ot 553.1 07/02/2015 ANTOINE LYNNE, PRINCESS Joshua Ot V72.84 05/24/2017 SUE LYNNE, JACKY Oliveira Ot J18.9 PNEUMONIA, UNSPECIFIED ORGANISM 05/24/2017 SUE LYNNE, JACKY A Ot M06.9 RHEUMATOID ARTHRITIS, UNSPECIFIED 05/24/2017 SUE LYNNE, JACKY A Ot R09.02 HYPOXEMIA 05/24/2017 JACKY ROGERS MD Ot R59.1 GENERALIZED ENLARGED LYMPH NODES 05/25/2017 JACKY ROGERS MD Ot J18.9 PNEUMONIA, UNSPECIFIED ORGANISM 05/25/2017 JACKY ROGERS MD Ot M06.9 RHEUMATOID ARTHRITIS, UNSPECIFIED 05/25/2017 JACKY ROGERS MD Ot R09.02 HYPOXEMIA 05/25/2017 JACKY ROGERS MD Ot R59.1 GENERALIZED ENLARGED LYMPH NODES 05/26/2017 JACKY ROGERS MD Ot J18.9 PNEUMONIA, UNSPECIFIED ORGANISM 05/26/2017 JACKY ROGERS MD Ot M06.9 RHEUMATOID ARTHRITIS, UNSPECIFIED 05/26/2017 JACKY ROGERS MD Ot R09.02 HYPOXEMIA 05/26/2017 JACKY ROGERS MD Ot R59.1 GENERALIZED ENLARGED LYMPH NODES 05/26/2017 JACKY ROGERS MD Ot J18.9 PNEUMONIA, UNSPECIFIED ORGANISM 05/26/2017 JACKY ROGERS MD Ot M06.9 RHEUMATOID ARTHRITIS, UNSPECIFIED 05/26/2017 JACKY ROGERS MD Ot R09.02 HYPOXEMIA 05/26/2017 JACKY ROGERS MD Ot R59.1 GENERALIZED ENLARGED LYMPH NODES 05/27/2017 JACKY ROGERS MD Ot J18.9 PNEUMONIA, UNSPECIFIED ORGANISM 05/27/2017 JACKY ROGERS MD Ot M06.9 RHEUMATOID ARTHRITIS, UNSPECIFIED 05/27/2017 JACKY ROGERS MD Ot R09.02 HYPOXEMIA 05/27/2017 JACKY ROGERS MD Ot R59.1 GENERALIZED ENLARGED LYMPH NODES Procedures Results Test Result Range Complete blood count (CBC) with automated white blood cell (WBC) differential - 05/23/17 13:45 Blood leukocytes automated count (number/volume) 9.3 10*3/ uL 4.3-11.0 Blood erythrocytes automated count (number/volume) 3.82 10*6 /uL 4.35-5.85 Venous blood hemoglobin measurement (mass/volume) 11.8 g/dL 11.5-16.0 Blood hematocrit (volume fraction) 36 % 35-52 Automated erythrocyte mean corpuscular volume 93 [foz_us] 80-99 Automated erythrocyte mean corpuscular hemoglobin (mass per erythrocyte) 31 pg 25-34 Automated erythrocyte mean corpuscular hemoglobin concentration measurement ( mass/volume) 33 g/dL 32-36 Automated erythrocyte distribution width ratio 14.3 % 10.0-14.5 Automated blood platelet count (count/volume) 474 10*3/uL 130-400 Automated blood platelet mean volume measurement 9.2 [foz_us ] 7.4-10.4 Automated blood neutrophils/100 leukocytes 75 % 42-75 Automated blood lymphocytes/100 leukocytes 11 % 12-44 Blood monocytes/100 leukocytes 13 % 0-12 Automated blood eosinophils/100 leukocytes 1 % 0-10 Automated blood basophils/100 leukocytes 0 % 0-10 Blood neutrophils automated count (number/volume) 7.0 10*3 1.8-7.8 Blood lymphocytes automated count (number/volume) 1.0 10*3 1.0-4.0 Blood monocytes automated count (number/volume) 1.2 10*3 0.0-1.0 Automated eosinophil count 0.1 10*3/uL 0.0-0.3 Automated blood basophil count (count/volume) 0.0 10*3/uL 0.0-0.1 Comprehensive metabolic panel - 05/23/17 13:45 Serum or plasma sodium measurement (moles/volume) 134 mmol/ L 135-145 Serum or plasma potassium measurement (moles/volume) 4.1 mmol/L 3.6-5.0 Serum or plasma chloride measurement (moles/volume) 101 mmol /L 98-107 Carbon dioxide 21 mmol/L 21-32 Serum or plasma anion gap determination (moles/volume) 12 mmol/L 5-14 Serum or plasma urea nitrogen measurement (mass/volume) 16 mg/dL 7-18 Serum or plasma creatinine measurement (mass/volume) 1.00 mg /dL 0.60-1.30 Serum or plasma urea nitrogen/creatinine mass ratio 16 NRG Serum or plasma creatinine measurement with calculation of estimated glomerular filtration rate 55 NRG Serum or plasma glucose measurement (mass/volume) 122 mg/dL 70-105 Serum or plasma calcium measurement (mass/volume) 9.7 mg/dL 8.5-10.1 Serum or plasma total bilirubin measurement (mass/volume) 0.7 mg/dL 0.1-1.0 Serum or plasma alkaline phosphatase measurement (enzymatic activity/volume) 64 U/L 40-136 Serum or plasma aspartate aminotransferase measurement (enzymatic activity/ volume) 18 U/L 5-34 Serum or plasma alanine aminotransferase measurement (enzymatic activity/volume ) 11 U/L 0-55 Serum or plasma protein measurement (mass/volume) 7.2 g/dL 6.4-8.2 Serum or plasma albumin measurement (mass/volume) 3.6 g/dL 3.2-4.5 Serum or plasma troponin i.cardiac measurement (mass/volume) - 05/23/17 13:45 Serum or plasma troponin i.cardiac measurement (mass/volume) < ng/mL <0.30 Serum or plasma C reactive protein measurement (mass/volume) - 05/23/17 13:45 Serum or plasma C reactive protein measurement (mass/volume) 14.18 mg/dL 0.00-0.50 Erythrocyte sedimentation rate by westergren method - 05/23/17 13:45 Erythrocyte sedimentation rate by westergren method 83 mm 0-30 Fibrin D-dimer FEU measurement in platelet poor plasma (mass/volume) - 13:45 Fibrin D-dimer FEU measurement in platelet poor plasma (mass/volume) 1.68 ug/mL 0.00-0.49 Blood lactic acid measurement (moles/volume) - 05/23/17 13:45 Blood lactic acid measurement (moles/volume) 1.38 mmol/L 0.50-2.00 Serum or plasma lithium measurement (moles/volume) - 05/23/17 13:45 BNP level 42.2 pg/mL <100.0 Bacterial blood culture - 05/23/17 13:45 Bacterial blood culture NG NRG Bacterial blood culture - 05/23/17 13:59 Bacterial blood culture NG NRG Complete urinalysis with reflex to culture - 05/23/17 14:26 Urine color determination YELLOW NRG Urine clarity determination SLIGHTLY CLOUDY NRG Urine pH measurement by test strip 7 5- 9 Specific gravity of urine by test strip 1.015 1.016-1.022 Urine protein assay by test strip, semi-quantitative 2+ NEGATIVE Urine glucose detection by automated test strip NEGATIVE NEGATIVE Erythrocytes detection in urine sediment by light microscopy 1+ NEGATIVE Urine ketones detection by automated test strip 1+ NEGATIVE Urine nitrite detection by test strip NEGATIVE NEGATIVE Urine total bilirubin detection by test strip NEGATIVE NEGATIVE Urine urobilinogen measurement by automated test strip (mass/volume) 1 mg/dL NORMAL Urine leukocyte esterase detection by dipstick 2+ NEGATIVE Automated urine sediment erythrocyte count by microscopy (number/high power field) [HPF] NRG Automated urine sediment leukocyte count by microscopy (number/high power field ) [HPF] NRG Bacteria detection in urine sediment by light microscopy TRACE NRG Squamous epithelial cells detection in urine sediment by light microscopy 2-5 NRG Crystals detection in urine sediment by light microscopy NONE NRG Casts detection in urine sediment by light microscopy NONE NRG Mucus detection in urine sediment by light microscopy NEGATIVE NRG Complete urinalysis with reflex to culture YES NRG Bacterial urine culture - 05/23/17 14:26 Bacterial urine culture [id number] NRG COLONY COUNT <10,000 NRG Complete blood count (CBC) with automated white blood cell (WBC) differential - 05/24/17 04:00 Blood leukocytes automated count (number/volume) 7.8 10*3/ uL 4.3-11.0 Blood erythrocytes automated count (number/volume) 3.38 10*6 /uL 4.35-5.85 Venous blood hemoglobin measurement (mass/volume) 10.6 g/dL 11.5-16.0 Blood hematocrit (volume fraction) 32 % 35-52 Automated erythrocyte mean corpuscular volume 94 [foz_us] 80-99 Automated erythrocyte mean corpuscular hemoglobin (mass per erythrocyte) 31 pg 25-34 Automated erythrocyte mean corpuscular hemoglobin concentration measurement ( mass/volume) 34 g/dL 32-36 Automated erythrocyte distribution width ratio 14.0 % 10.0-14.5 Automated blood platelet count (count/volume) 386 10*3/uL 130-400 Automated blood platelet mean volume measurement 9.5 [foz_us ] 7.4-10.4 Automated blood neutrophils/100 leukocytes 72 % 42-75 Automated blood lymphocytes/100 leukocytes 13 % 12-44 Blood monocytes/100 leukocytes 14 % 0-12 Automated blood eosinophils/100 leukocytes 1 % 0-10 Automated blood basophils/100 leukocytes 0 % 0-10 Blood neutrophils automated count (number/volume) 5.6 10*3 1.8-7.8 Blood lymphocytes automated count (number/volume) 1.0 10*3 1.0-4.0 Blood monocytes automated count (number/volume) 1.1 10*3 0.0-1.0 Automated eosinophil count 0.1 10*3/uL 0.0-0.3 Automated blood basophil count (count/volume) 0.0 10*3/uL 0.0-0.1 Comprehensive metabolic panel - 05/24/17 04:00 Serum or plasma sodium measurement (moles/volume) 135 mmol/ L 135-145 Serum or plasma potassium measurement (moles/volume) 4.0 mmol/L 3.6-5.0 Serum or plasma chloride measurement (moles/volume) 103 mmol /L 98-107 Carbon dioxide 20 mmol/L 21-32 Serum or plasma anion gap determination (moles/volume) 12 mmol/L 5-14 Serum or plasma urea nitrogen measurement (mass/volume) 13 mg/dL 7-18 Serum or plasma creatinine measurement (mass/volume) 1.00 mg /dL 0.60-1.30 Serum or plasma urea nitrogen/creatinine mass ratio 13 NRG Serum or plasma creatinine measurement with calculation of estimated glomerular filtration rate 55 NRG Serum or plasma glucose measurement (mass/volume) 109 mg/dL 70-105 Serum or plasma calcium measurement (mass/volume) 8.7 mg/dL 8.5-10.1 Serum or plasma total bilirubin measurement (mass/volume) 0.4 mg/dL 0.1-1.0 Serum or plasma alkaline phosphatase measurement (enzymatic activity/volume) 56 U/L 40-136 Serum or plasma aspartate aminotransferase measurement (enzymatic activity/ volume) 17 U/L 5-34 Serum or plasma alanine aminotransferase measurement (enzymatic activity/volume ) 11 U/L 0-55 Serum or plasma protein measurement (mass/volume) 6.1 g/dL 6.4-8.2 Serum or plasma albumin measurement (mass/volume) 3.0 g/dL 3.2-4.5 Serum or plasma gentamicin measurement (mass/volume) - 05/24/17 04:00 Serum or plasma gentamicin measurement (mass/volume) 6.7 ug/ mL <=10.0 Automated blood complete blood count (hemogram) panel - 05/25/17 04:24 Blood leukocytes automated count (number/volume) 9.5 10*3/ uL 4.3-11.0 Blood erythrocytes automated count (number/volume) 3.56 10*6 /uL 4.35-5.85 Venous blood hemoglobin measurement (mass/volume) 10.9 g/dL 11.5-16.0 Blood hematocrit (volume fraction) 33 % 35-52 Automated erythrocyte mean corpuscular volume 94 [foz_us] 80-99 Automated erythrocyte mean corpuscular hemoglobin (mass per erythrocyte) 31 pg 25-34 Automated erythrocyte mean corpuscular hemoglobin concentration measurement ( mass/volume) 33 g/dL 32-36 Automated erythrocyte distribution width ratio 14.2 % 10.0-14.5 Automated blood platelet count (count/volume) 444 10*3/uL 130-400 Automated blood platelet mean volume measurement 9.3 [foz_us ] 7.4-10.4 Comprehensive metabolic panel - 05/25/17 04:24 Serum or plasma sodium measurement (moles/volume) 137 mmol/ L 135-145 Serum or plasma potassium measurement (moles/volume) 4.3 mmol/L 3.6-5.0 Serum or plasma chloride measurement (moles/volume) 104 mmol /L 98-107 Carbon dioxide 22 mmol/L 21-32 Serum or plasma anion gap determination (moles/volume) 11 mmol/L 5-14 Serum or plasma urea nitrogen measurement (mass/volume) 12 mg/dL 7-18 Serum or plasma creatinine measurement (mass/volume) 0.97 mg /dL 0.60-1.30 Serum or plasma urea nitrogen/creatinine mass ratio 12 NRG Serum or plasma creatinine measurement with calculation of estimated glomerular filtration rate 57 NRG Serum or plasma glucose measurement (mass/volume) 110 mg/dL 70-105 Serum or plasma calcium measurement (mass/volume) 10.0 mg/ dL 8.5-10.1 Serum or plasma total bilirubin measurement (mass/volume) 0.4 mg/dL 0.1-1.0 Serum or plasma alkaline phosphatase measurement (enzymatic activity/volume) 60 U/L 40-136 Serum or plasma aspartate aminotransferase measurement (enzymatic activity/ volume) 19 U/L 5-34 Serum or plasma alanine aminotransferase measurement (enzymatic activity/volume ) 11 U/L 0-55 Serum or plasma protein measurement (mass/volume) 6.6 g/dL 6.4-8.2 Serum or plasma albumin measurement (mass/volume) 3.1 g/dL 3.2-4.5 Automated blood complete blood count (hemogram) panel - 05/26/17 04:09 Blood leukocytes automated count (number/volume) 16.3 10*3/ uL 4.3-11.0 Blood erythrocytes automated count (number/volume) 3.83 10*6 /uL 4.35-5.85 Venous blood hemoglobin measurement (mass/volume) 11.8 g/dL 11.5-16.0 Blood hematocrit (volume fraction) 35 % 35-52 Automated erythrocyte mean corpuscular volume 92 [foz_us] 80-99 Automated erythrocyte mean corpuscular hemoglobin (mass per erythrocyte) 31 pg 25-34 Automated erythrocyte mean corpuscular hemoglobin concentration measurement ( mass/volume) 33 g/dL 32-36 Automated erythrocyte distribution width ratio 14.2 % 10.0-14.5 Automated blood platelet count (count/volume) 543 10*3/uL 130-400 Automated blood platelet mean volume measurement 9.6 [foz_us ] 7.4-10.4 Comprehensive metabolic panel - 05/26/17 04:09 Serum or plasma sodium measurement (moles/volume) 137 mmol/ L 135-145 Serum or plasma potassium measurement (moles/volume) 4.0 mmol/L 3.6-5.0 Serum or plasma chloride measurement (moles/volume) 104 mmol /L 98-107 Carbon dioxide 21 mmol/L 21-32 Serum or plasma anion gap determination (moles/volume) 12 mmol/L 5-14 Serum or plasma urea nitrogen measurement (mass/volume) 16 mg/dL 7-18 Serum or plasma creatinine measurement (mass/volume) 0.85 mg /dL 0.60-1.30 Serum or plasma urea nitrogen/creatinine mass ratio 19 NRG Serum or plasma creatinine measurement with calculation of estimated glomerular filtration rate > NRG Serum or plasma glucose measurement (mass/volume) 137 mg/dL 70-105 Serum or plasma calcium measurement (mass/volume) 9.7 mg/dL 8.5-10.1 Serum or plasma total bilirubin measurement (mass/volume) 0.3 mg/dL 0.1-1.0 Serum or plasma alkaline phosphatase measurement (enzymatic activity/volume) 66 U/L 40-136 Serum or plasma aspartate aminotransferase measurement (enzymatic activity/ volume) 19 U/L 5-34 Serum or plasma alanine aminotransferase measurement (enzymatic activity/volume ) 14 U/L 0-55 Serum or plasma protein measurement (mass/volume) 7.0 g/dL 6.4-8.2 Serum or plasma albumin measurement (mass/volume) 3.3 g/dL 3.2-4.5 Automated blood complete blood count (hemogram) panel - 05/27/17 05:37 Blood leukocytes automated count (number/volume) 19.9 10*3/ uL 4.3-11.0 Blood erythrocytes automated count (number/volume) 3.66 10*6 /uL 4.35-5.85 Venous blood hemoglobin measurement (mass/volume) 11.3 g/dL 11.5-16.0 Blood hematocrit (volume fraction) 34 % 35-52 Automated erythrocyte mean corpuscular volume 93 [foz_us] 80-99 Automated erythrocyte mean corpuscular hemoglobin (mass per erythrocyte) 31 pg 25-34 Automated erythrocyte mean corpuscular hemoglobin concentration measurement ( mass/volume) 33 g/dL 32-36 Automated erythrocyte distribution width ratio 14.2 % 10.0-14.5 Automated blood platelet count (count/volume) 591 10*3/uL 130-400 Automated blood platelet mean volume measurement 9.0 [foz_us ] 7.4-10.4 Comprehensive metabolic panel - 05/27/17 05:37 Serum or plasma sodium measurement (moles/volume) 138 mmol/ L 135-145 Serum or plasma potassium measurement (moles/volume) 4.0 mmol/L 3.6-5.0 Serum or plasma chloride measurement (moles/volume) 106 mmol /L 98-107 Carbon dioxide 22 mmol/L 21-32 Serum or plasma anion gap determination (moles/volume) 10 mmol/L 5-14 Serum or plasma urea nitrogen measurement (mass/volume) 21 mg/dL 7-18 Serum or plasma creatinine measurement (mass/volume) 0.87 mg /dL 0.60-1.30 Serum or plasma urea nitrogen/creatinine mass ratio 24 NRG Serum or plasma creatinine measurement with calculation of estimated glomerular filtration rate > NRG Serum or plasma glucose measurement (mass/volume) 143 mg/dL 70-105 Serum or plasma calcium measurement (mass/volume) 9.6 mg/dL 8.5-10.1 Serum or plasma total bilirubin measurement (mass/volume) 0.3 mg/dL 0.1-1.0 Serum or plasma alkaline phosphatase measurement (enzymatic activity/volume) 64 U/L 40-136 Serum or plasma aspartate aminotransferase measurement (enzymatic activity/ volume) 18 U/L 5-34 Serum or plasma alanine aminotransferase measurement (enzymatic activity/volume ) 14 U/L 0-55 Serum or plasma protein measurement (mass/volume) 6.4 g/dL 6.4-8.2 Serum or plasma albumin measurement (mass/volume) 3.1 g/dL 3.2-4.5 Automated blood complete blood count (hemogram) panel - 05/28/17 05:35 Blood leukocytes automated count (number/volume) 15.6 10*3/ uL 4.3-11.0 Blood erythrocytes automated count (number/volume) 3.49 10*6 /uL 4.35-5.85 Venous blood hemoglobin measurement (mass/volume) 10.7 g/dL 11.5-16.0 Blood hematocrit (volume fraction) 33 % 35-52 Automated erythrocyte mean corpuscular volume 95 [foz_us] 80-99 Automated erythrocyte mean corpuscular hemoglobin (mass per erythrocyte) 31 pg 25-34 Automated erythrocyte mean corpuscular hemoglobin concentration measurement ( mass/volume) 32 g/dL 32-36 Automated erythrocyte distribution width ratio 14.5 % 10.0-14.5 Automated blood platelet count (count/volume) 522 10*3/uL 130-400 Automated blood platelet mean volume measurement 9.3 [foz_us ] 7.4-10.4 Whole blood basic metabolic panel - 05/28/17 05:35 Serum or plasma sodium measurement (moles/volume) 139 mmol/ L 135-145 Serum or plasma potassium measurement (moles/volume) 4.2 mmol/L 3.6-5.0 Serum or plasma chloride measurement (moles/volume) 110 mmol /L 98-107 Carbon dioxide 17 mmol/L 21-32 Serum or plasma anion gap determination (moles/volume) 12 mmol/L 5-14 Serum or plasma urea nitrogen measurement (mass/volume) 23 mg/dL 7-18 Serum or plasma creatinine measurement (mass/volume) 0.77 mg /dL 0.60-1.30 Serum or plasma urea nitrogen/creatinine mass ratio 30 NRG Serum or plasma creatinine measurement with calculation of estimated glomerular filtration rate > NRG Serum or plasma glucose measurement (mass/volume) 121 mg/dL 70-105 Serum or plasma calcium measurement (mass/volume) 8.6 mg/dL 8.5-10.1 Whole blood basic metabolic panel - 05/29/17 05:14 Serum or plasma sodium measurement (moles/volume) 140 mmol/ L 135-145 Serum or plasma potassium measurement (moles/volume) 4.3 mmol/L 3.6-5.0 Serum or plasma chloride measurement (moles/volume) 110 mmol /L 98-107 Carbon dioxide 21 mmol/L 21-32 Serum or plasma anion gap determination (moles/volume) 9 mmol/L 5-14 Serum or plasma urea nitrogen measurement (mass/volume) 19 mg/dL 7-18 Serum or plasma creatinine measurement (mass/volume) 0.78 mg /dL 0.60-1.30 Serum or plasma urea nitrogen/creatinine mass ratio 24 NRG Serum or plasma creatinine measurement with calculation of estimated glomerular filtration rate > NRG Serum or plasma glucose measurement (mass/volume) 130 mg/dL 70-105 Serum or plasma calcium measurement (mass/volume) 8.5 mg/dL 8.5-10.1 Automated blood complete blood count (hemogram) panel - 05/29/17 05:14 Blood leukocytes automated count (number/volume) 15.2 10*3/ uL 4.3-11.0 Blood erythrocytes automated count (number/volume) 3.50 10*6 /uL 4.35-5.85 Venous blood hemoglobin measurement (mass/volume) 10.7 g/dL 11.5-16.0 Blood hematocrit (volume fraction) 33 % 35-52 Automated erythrocyte mean corpuscular volume 94 [foz_us] 80-99 Automated erythrocyte mean corpuscular hemoglobin (mass per erythrocyte) 31 pg 25-34 Automated erythrocyte mean corpuscular hemoglobin concentration measurement ( mass/volume) 32 g/dL 32-36 Automated erythrocyte distribution width ratio 14.6 % 10.0-14.5 Automated blood platelet count (count/volume) 500 10*3/uL 130-400 Automated blood platelet mean volume measurement 9.3 [foz_us ] 7.4-10.4 Encounters ACCT No. Visit Date/Time Discharge Status Pt. Type Provider Facility Loc./Unit Complaint [id number] 06/27/2015 10:05:00 2014 12:27:00 DIS Emergency RULA LYNNE, DINAH Yoo [facility] [id number] 06/05/2015 06:22:00 2014 11:30:00 DIS Outpatient RASHEL LYNNE, NICOLE Etienne [facility] SDC [id number] 05/29/2015 08:44:00 2014 23:59:59 CLS Outpatient RASHEL LYNNE, NICOLE Etienne [facility] PREOP [id number] 11/29/2014 11:59:00 2014 23:59:59 CLS Outpatient ANTOINE LYNNE, PRINCESS Joshua [facility] CARD [id number] 09/13/2014 08:16:00 2013 11:20:00 DIS Emergency RULA LYNNE, DINAH Yoo [facility] ER [id number] 05/23/2017 15:43:00 ACT Inpatient SUE LYNNE, JACKY Oliveira [facility] 4TH PNEUMONIA
[2017-05-30 08:00] VITALS: BP 112/71
[2017-05-30] MEDS: CEFEPIME 2 GM/NS 50 ML IVPB IV SCH ×2 (08:13)
[2017-05-30] MEDS: ENOXAPARIN 40 MG/0.4 ML (LOVENOX) SYR SC SCH (09:50)
[2017-05-30] MEDS: FOLIC ACID 1 MG TAB PO SCH (09:50)
--- NOTE | 2017-05-30 10:17 | Progress Note (SOAP) ---
Subjective Date Seen by Provider: May 30, 2017 Time Seen by Provider: 10:45 Subjective/Events-last exam PT REPORTS THAT SHE IS FEELING SIGNIFICANTLY IMPROVED TODAY. SHE DOES NOT HAVE ANY CHEST PAIN, HAS IMPROVED SHORTNESS OF BREATH. SHE STATES THAT SHE DOES NOT HAVE ANY NAUSEA, ABDOMINAL PAIN. Review of Systems General: No Chills, Fatigue HEENT: No Head Aches Pulmonary: No Dyspnea, Cough Cardiovascular: No: Chest Pain Gastrointestinal: No: Abdominal Pain, Nausea Genitourinary: No Dysuria Neurological: No: Weakness Objective Exam Vital Signs Date Time Temp Pulse Resp B/P (MAP) Pulse Ox O2 Delivery O2 Flow Rate FiO2 05/30/17 06:58 93 Room Air 05/30/17 00:00 97.8 85 20 142/85 95 Room Air 05/29/17 19:39 Room Air 05/29/17 19:20 93 Room Air 05/29/17 15:54 93 Room Air 05/29/17 15:37 98.0 85 20 121/63 94 Room Air 05/29/17 10:44 96 Nasal Cannula 2.00 I & O 05/30/17 07:00 Intake Total 2002 ml Output Total 1850 ml Balance 152 ml Capillary Refill : Less Than 3 Seconds General Appearance: No Apparent Distress, WD/WN HEENT: PERRL/EOMI, Pharynx Normal Neck: Full Range of Motion, Supple Respiratory: Chest Non Tender, Crackles (IN BASES), Decreased Breath Sounds Cardiovascular: Regular Rate, Rhythm, No Edema Gastrointestinal: normal bowel sounds, non tender, soft Extremity: Normal Capillary Refill, No Pedal Edema Neurologic/Psychiatric: Alert, Oriented x3, No Motor/Sensory Deficits, Normal Mood/Affect Skin: Warm/Dry Lymphatic: No Adenopathy Results Lab Laboratory Tests 05/30/17 06:00: White Blood Count 14.0H, Red Blood Count 3.48L, Hemoglobin 10.8L, Hematocrit 33L , Mean Corpuscular Volume 94, Mean Corpuscular Hemoglobin 31, Mean Corpuscular Hemoglobin Concent 33, Red Cell Distribution Width 14.9H, Platelet Count 496H, Mean Platelet Volume 9.0, Sodium Level 141, Potassium Level 3.5L, Chloride Level 110H, Carbon Dioxide Level 19L, Anion Gap 12, Blood Urea Nitrogen 15, Creatinine 0.75, Estimat Glomerular Filtration Rate > 60, BUN/Creatinine Ratio 20, Glucose Level 91, Calcium Level 8.1L Microbiology 05/23/17 Blood Culture - Final, Complete No growth 05/23/17 Urine Culture - Final, Complete Nonenterococcus (Chains Cocci) Probable E.coli Strep, Beta Hemolytic Group B Assessment/Plan Assessment/Plan Assess & Plan/Chief Complaint PNEUMONIA - MULTILOBAR HYPOXIA LYMPHADENOPATHY RHEUMATOID ARTHRITIS CHRONIC IMMUNOSUPPRESSION UTI - PROBABLE ECOLI CONSTIPATION PNEUMONIA - ON PNEUMONIA PROTOCOL, CONTINUE CURRENT TREATMENT - CHECK SERIAL CHEST XRAYS. - SLIGHT BUT CONTINUAL IMPROVEMENT OVER THE PAST 72 HOURS ON CHEST XRAY - CONTINUE WITH ACAPELLA, STOPPED STEROIDS HYPOXIA - IMPROVED - CONTINUE CURRENT MANAGEMENT - MONITOR OXYGEN LEVEL - MAY NEED TO DO AMBULATORY OXYGEN CHECK TO SEE IF SHE NEEDS OXYGEN WHILE AMBULATING/ ACTIVE AT HOME. LYMPHADENOPATHY - IN CHEST ON CT SCAN - WILL REPEAT IMAGING IN ONE MONTH AFTER HEALING FROM PNEUMONIA TO SEE IF LYMPHADENOPATHY IS INFLAMMATORY OR POSSIBLY MALIGNANT - DISCUSSED THIS WITH THE PATIENT TODAY - HER SISTER WAS PRESENT. RHEUMATOID ARTHRITIS - HOLD METHOTREXATE CONSTIPATION - MIRALAX Clinical Quality Measures DVT/VTE Risk/Contraindication: Risk Factor Score Per Nursin RFS Level Per Nursing on Admit: 3=High JACKY ROGERS MD May 30, 2017 10:17
--- NOTE | 2017-05-30 11:29 | Diagnostic Imaging Report ---
INDICATION: Respiratory infection PA and lateral chest There are some faint alveolar infiltrates in both lungs which have improved from the previous day. Heart size and pulmonary vascularity are normal. IMPRESSION: Improving pulmonary infiltrates. Dictated by: Dictated on workstation # [id number]
[2017-05-30] MEDS ORDERED: guaiFENesin (MUCINEX) 600 MG TAB PO NR (12:56)
[2017-05-30 16:03] VITALS: BP 115/57
[2017-05-30] MEDS: POLYETHYLENE GLYCOL 17 GM (MIRALAX) PACK PO SCH (20:36)
[2017-05-30] MEDS: guaiFENesin (MUCINEX) 600 MG TAB PO SCH (20:36)
[2017-05-31] VITALS: BP 124/80
[2017-05-31] MEDS: LACTOBACILLUS Acidoph/Bulgar (LACTINEX/FLORANEX) TAB PO SCH (04:52)
[2017-05-31] MEDS: IBUPROFEN 800 MG (MOTRIN) TAB PO SCH (04:52)
[2017-05-31] MEDS: RT-ALBUTEROL/IPRATROPIUM 3 ML (DUONEB) VIAL IH SCH (06:58)
[2017-05-31 08:00] VITALS: BP 112/58
[2017-05-31] MEDS: ENOXAPARIN 40 MG/0.4 ML (LOVENOX) SYR SC SCH (08:42)
[2017-05-31] MEDS: guaiFENesin (MUCINEX) 600 MG TAB PO SCH (08:42)
[2017-05-31] MEDS: FOLIC ACID 1 MG TAB PO SCH (08:42)
--- NOTE | 2017-05-31 08:53 | Diagnostic Imaging Report ---
EXAM: CHEST PA/LAT (2 VIEW) INDICATION: Pneumonia. COMPARISON: Chest radiograph 05/30/2017. FINDINGS: Normal heart size and pulmonary vascularity. There remains diffuse airspace opacities throughout both lungs, similar to the prior exam. No pleural effusion or pneumothorax. No acute osseous findings. IMPRESSION: Stable bilateral airspace opacities. Dictated by: Dictated on workstation # [id number]
--- NOTE | 2017-05-31 08:55 | Discharge Summary ---
Diagnosis/Chief Complaint Date of Admission May 23, 2017 at 15:43 Date of Discharge Admission Diagnosis Admission Diagnosis PNEUMONIA HYPOXIA LYMPHADENOPATHY RHEUMATOID ARTHRITIS CHRONIC IMMUNOSUPPRESSION Discharge Diagnosis PNEUMONIA - MULTILOBAR HYPOXIA LYMPHADENOPATHY RHEUMATOID ARTHRITIS CHRONIC IMMUNOSUPPRESSION UTI - ECOLI CONSTIPATION Reason Hospital Visit PT IS A 67 Y/O FEMALE WHO IS KNOWN TO ME FROM CLINIC. SHE PRESENTED TO THE EMERGENCY DEPARTMENT YESTERDAY EVENING WITH WEAKNESS, COUGH, FEVER, AND WAS EVALUATED AND FOUND TO HAVE PNEUMONIA ON CT SCAN. SHE CONTINUED TO HAVE FEVERS OVERNIGHT AND REQUIRES OXYGEN FOR SUPPORT DUE TO SHORTNESS OF BREATH AND HYPOXIA. Discharge Summary Discharge Physical Examination Allergies: Coded Allergies: No Known Drug Allergies (Unverified , 09/13/14) Vitals & I&Os Vital Signs Date Time Temp Pulse Resp B/P (MAP) Pulse Ox O2 Delivery O2 Flow Rate FiO2 05/31/17 06:58 90 Room Air 05/31/17 00:00 98.6 80 18 124/80 05/29/17 10:44 2.00 General Appearance: Alert, Oriented X3, Cooperative, No Acute Distress HEENT: Atraumatic, PERRLA Respiratory: Other (FAINT CRACKLES IN BASES) Cardiovascular: Regular Rate Abdominal: Normal Bowel Sounds, Soft, No Tenderness Extremities: No Clubbing, No Cyanosis Skin: No Rashes, No Breakdown Neuro: Normal Speech, Strength at 5/5 X4 Ext, Cranial Nerves 3-12 NL Psych/Mental Status: Mental Status NL, Mood NL Hospital Course PNEUMONIA - MULTILOBAR HYPOXIA LYMPHADENOPATHY RHEUMATOID ARTHRITIS CHRONIC IMMUNOSUPPRESSION UTI - PROBABLE ECOLI CONSTIPATION PNEUMONIA - ON PNEUMONIA PROTOCOL, CONTINUE CURRENT TREATMENT - CHECK SERIAL CHEST XRAYS. - SLIGHT BUT CONTINUAL IMPROVEMENT OVER THE PAST 72 HOURS ON CHEST XRAY - CONTINUE WITH ACAPELLA, STOPPED STEROIDS HYPOXIA - IMPROVED - CONTINUE CURRENT MANAGEMENT - MONITOR OXYGEN LEVEL - MAY NEED TO DO AMBULATORY OXYGEN CHECK TO SEE IF SHE NEEDS OXYGEN WHILE AMBULATING/ ACTIVE AT HOME. LYMPHADENOPATHY - IN CHEST ON CT SCAN - WILL REPEAT IMAGING IN ONE MONTH AFTER HEALING FROM PNEUMONIA TO SEE IF LYMPHADENOPATHY IS INFLAMMATORY OR POSSIBLY MALIGNANT - DISCUSSED THIS WITH THE PATIENT TODAY - HER SISTER WAS PRESENT. RHEUMATOID ARTHRITIS - HOLD METHOTREXATE CONSTIPATION - MIRALAX PLAN - DISCHARGE HOME TODAY - WILL FOLLOW UP IN CLINIC IN THE NEXT 7-10 DAYS - PT TO STAY OFF OF WORK UNTIL RELEASED ON FOLLOW UP EVALUATION AT THE OFFICE. Discharge Condition at discharge IMPROVING Instructions to patient/family Please see electonic discharge instructions given to patient. Discharge Medications Reviewed and agree with Discharge Medication list on patient's Discharge Instruction sheet Clinical Quality Measures DVT/VTE Risk/Contraindication: Risk Factor Score Per Nursin RFS Level Per Nursing on Admit: 3=High JACKY ROGERS MD May 31, 2017 08:55
[2017-05-31] MEDS ORDERED: AZIT250T5 PO (09:01)
[2017-05-31] MEDS ORDERED: ACID1TAB PO (09:01)
[2017-05-31] MEDS ORDERED: IPRA3AMP IH (09:01)
[2017-05-31] MEDS ORDERED: GUAI600T43 PO (09:01)
--- NOTE | 2017-05-31 09:04 | Discharge Inst-Complex ---
PDI Med Rec & Follow Up Appt. New Medications: Azithromycin (Azithromycin) 250 Mg Tablet 250 MG PO UD, #6 TAB TAKE 2 TABLETS ON DAY ONE THEN TAKE 1 TABLET DAILY FOR FOUR MORE DAYS Guaifenesin (Mucinex) 600 Mg Tab.er.12h 600 MG PO BID for 10 Days, #20 TAB Ipratropium/Albuterol Sulfate (Iprat-Albut 0.5-3(2.5) mg/3 ml) 3 Ml Ampul.neb 3 ML IH RTQID PRN for DYSPNEA, #30 INHALER 1 Refill USE BID X 1 WK THEN CHANGE TO NEEDED, MAY USE UP TO 4 TIMES/DAY IF NEEDED FOR SHORTNESS OF BREATH L. Acidophilus/Bulgaricus (Floranex Tablet) 1 Each Tablet 1 TAB.CHEW PO AC for 10 Days, #30 TAB Continued Medications: Cholecalciferol (Vitamin D3) (Vitamin D3) 1,000 Unit Capsule 2000 UNIT PO DAILY, CAP TAKES 2 (1,000 UNITS) CAPSULES Folic Acid (Folic Acid) 1 Mg Tablet 1 MG PO DAILY, TAB Hydrocodone/Acetaminophen (Hydrocodon -Acetaminophen 5-325) 1 Each Tablet 0.5-1 TAB PO Q6H PRN for PAIN-MODERATE, TAB Methotrexate Sodium (Methotrexate) 2.5 Mg Tablet 25 MG PO Andrew, TAB Nabumetone (Nabumetone) 750 Mg Tablet 1500 MG PO DAILY, TAB TAKES 2 (750MG) TABLETS Prescription: Transmitted to Pharmacy Activity, Diet and PDI Resume Normal Activity: Yes Discharge Diet: Regular Diet Driving Instructions: No Driving for 24 Hours Return to The Hospital For: ANY CONCERN FOR WORSENING SHORTNESS OF BREATH, UNCONTROLLED CHEST PAIN, OR CONCERN FOR LIFETHREATENING ILLNESS OR INJURY Symptoms to Reoprt to : Fever Over 101 Degrees F, Diarrhea(Persistant), Shortness of Breath For Problems or Questions: Contact Your Physician, Go to Emergency Room JACKY ROGERS MD May 31, 2017 09:04
[2017-05-31 10:00] VITALS: BP 112/58
== END 2017-05-31 10:00 | disposition home or self-care (01) | DRG 194 ==
LOC: EDUNIT# 13:20 → ER 13:21 → 4TH 15:43 → ENPENDDIS 05-31 10:00
PROVIDERS: ADMIT Family Medicine; ATTEND Family Medicine
DX: J18.9 Pneumonia, unspecified organism (principal); N39.0 Urinary tract infection, site not specified; R09.02 Hypoxemia; R59.1 Generalized enlarged lymph nodes; M06.9 Rheumatoid arthritis, unspecified; B96.20 Unspecified Escherichia coli [E. coli] as the cause of diseases classified elsewhere; K59.00 Constipation, unspecified
CPT/HCPCS: 36415; 71010; 71020; 71275; 80048; 80053; 80170; 81000; 83605; 83880; 84484; 85025; 85027; 85379; 85652; 86141; 87040; 87088; 93005; 94640; 94664; 94760; 94761; 96361; 96374

== ENCOUNTER → 2017-06-04 | Outpatient (CLI) | payer BC ==
[~2017-06-04] MED LIST changes: +ACID1TAB PO; +AZIT250T5 PO; +CHOL10007 PO; +FOLI1TAB24 PO; +GUAI600T43 PO; +HYDR-3812 PO; +IPRA3AMP IH; +METH2.5T PO; +NABU750T PO
--- NOTE | 2017-06-04 11:22 | Diagnostic Imaging Report ---
PA and lateral views of the chest. COMPARISON: 05/31/17. INDICATION: Followup pneumonia. FINDINGS: There are bilateral patchy infiltrates seen. This is a similar picture to 05/31/17 without significant change. The heart size is normal. No effusion or pneumothorax. Mediastinum and raphael appear unremarkable. IMPRESSION: Stable bilateral patchy infiltrates. Dictated by: Dictated on workstation # [id number]
== END ==
LOC: RAD 10:38
PROVIDERS: ATTEND Family Medicine
DX: J18.9 Pneumonia, unspecified organism (principal)
CPT/HCPCS: 71020

== ENCOUNTER → 2017-06-26 | Outpatient (CLI) | payer BC, MEDICARE ==
[~2017-06-26] MED LIST changes: +AZIT250T12 PO; -AZIT250T5 PO
--- NOTE | 2017-06-26 12:27 | Diagnostic Imaging Report ---
INDICATION: Cough. TECHNIQUE: Two view chest 12:32 p.m. CORRELATION STUDY: 06/04/2017. FINDINGS: Previous imaging demonstrated patchy, somewhat nodular infiltrates to be present. This has improved. Lung tillman demonstrate what appears to be likely senescent type changes but overall otherwise generally clear. Biapical pleural thickening unchanged. Heart size, mediastinum, and vasculature appearing stable and unremarkable. Multilevel degenerative changes in the thoracic spine. IMPRESSION: Previously noted bilateral patchy pulmonary infiltrates essentially resolved. No suggestion for acute cardiopulmonary abnormality on followup. Dictated by: Dictated on workstation # [id number]
== END ==
LOC: RAD 12:06
PROVIDERS: ATTEND Nurse Practitioner Family
DX: M47.814 Spondylosis without myelopathy or radiculopathy, thoracic region (principal); R05 Cough
CPT/HCPCS: 71020

== ENCOUNTER → 2018-04-07 | Outpatient (CLI) | payer BC, MEDICARE ==
[~2018-04-07] MED LIST changes: +ACHD5005 PO; -HYDR-3812 PO
--- NOTE | 2018-04-07 12:13 | Diagnostic Imaging Report ---
INDICATION: Routine screening. COMPARISON is made with prior studies from 06/17/2004 and 01/03/2003. 2-D and 3-D bilateral screening mammography was performed with Computer Aided Detection (CAD) system. FINDINGS: Scattered fibroglandular densities are identified bilaterally. Overall breast parenchymal density has significantly decreased since the prior imaging from 2002 and 2003. No dominant mass or malignant appearing microcalcifications are seen. The axillae are unremarkable. IMPRESSION: BI-RADS category 1. No mammographic features suspicious for malignancy are identified. ACR BI-RADS Category 1: Negative. Result letter will be mailed to the patient. Note: At least 10% of breast cancer is not imaged by mammography. Dictated by: Dictated on workstation # [id number]
== END ==
LOC: RAD 10:46
PROVIDERS: ATTEND Nurse Practitioner Family
DX: Z12.31 Encounter for screening mammogram for malignant neoplasm of breast (principal)
CPT/HCPCS: 77067

== ENCOUNTER 2019-04-21 20:54 | Outpatient (CLI) | payer MEDICARE, OTHER ==
[~2019-04-21 20:54] MED LIST changes: -IPRA3AMP IH; +IPRA3AMP31 IH; -METH2.5T PO; +MTX2.5T PO
== END 2019-04-22 06:00 | disposition home or self-care (01) ==
LOC: SLEEP 20:54
PROVIDERS: ATTEND Family Medicine
DX: G47.33 Obstructive sleep apnea (adult) (pediatric) (principal); G47.419 Narcolepsy without cataplexy; R06.83 Snoring; R09.02 Hypoxemia; G47.61 Periodic limb movement disorder
CPT/HCPCS: 95811

== ENCOUNTER 2019-04-29 12:26 | Inpatient (IN) | payer MEDICARE, OTHER ==
[~2019-04-29] VITALS: Ht 177.8 cm; Wt 95.4 kg
[2019-04-29 12:50] LABS: BASOPHILS % (AUTO) 0 % (0-10); EOSINOPHILS # (AUTO) 0.2 10^3/uL (0.0-0.3); EOSINOPHILS % (AUTO) 2 % (0-10); HEMATOCRIT 39 % (35-52); HEMOGLOBIN 13.1 G/DL (11.5-16.0); LYMPHOCYTES # (AUTO) 2.3 X 10^3 (1.0-4.0); LYMPHOCYTES % (AUTO) 25 % (12-44); MEAN CORPUSCULAR HEMOGLOBIN 32 PG (25-34); MEAN CORPUSCULAR HGB CONC 34 G/DL (32-36); MEAN CORPUSCULAR VOLUME 95 FL (80-99); MEAN PLATELET VOLUME 9.7 FL (7.4-10.4); MONOCYTES # (AUTO) 0.7 X 10^3 (0.0-1.0); MONOCYTES % (AUTO) 8 % (0-12); NEUTROPHILS % (AUTO) 65 % (42-75); PLATELET COUNT 359 10^3/uL (130-400); RED CELL DISTRIBUTION WIDTH 14.5 % (10.0-14.5); WHITE BLOOD COUNT 9.2 10^3/uL (4.3-11.0)
--- NOTE | 2019-04-29 12:56 | NUR ---
BACK FROM CT
[2019-04-29 13:12] LABS: ALANINE AMINOTRANSFERASE 13 U/L (0-55); ALBUMIN 4.1 GM/DL (3.2-4.5); ALKALINE PHOSPHATASE 75 U/L (40-136); BILIRUBIN,TOTAL 0.4 MG/DL (0.1-1.0); BUN/CREATININE RATIO 9; CALCIUM 9.2 MG/DL (8.5-10.1); CARBON DIOXIDE 21 MMOL/L (21-32); CHLORIDE 107 MMOL/L (98-107); CREATININE SERUM 0.88 MG/DL (0.60-1.30); GFR ESTIMATED > 60; GLUCOSE 105 MG/DL (70-105); MAGNESIUM 2.1 MG/DL (1.8-2.4); POTASSIUM 3.6 MMOL/L (3.6-5.0); SODIUM 139 MMOL/L (135-145); TOTAL PROTEIN 6.9 GM/DL (6.4-8.2)
[2019-04-29 13:18] LABS: FIBRIN DEGRADATION PRODUCTS 0.41 UG/ML (0.00-0.49); INR 0.9 (0.8-1.4); PROTHROMBIN TIME PATIENT 12.8 SEC (12.2-14.7)
--- NOTE | 2019-04-29 13:20 | Diagnostic Imaging Report ---
PROCEDURE: CT head wo r/o stroke. TECHNIQUE: Multiple contiguous axial images were obtained through the brain without the use of intravenous contrast. Auto Exposure Controls were utilized during the CT exam to meet ALARA standards for radiation dose reduction. DATE: April 29, 2019. COMPARISON: CT head and cervical spine June 27, 2015. INDICATION: 69-year-old female, confusion. Dysarthria and dysphasia. FINDINGS: There is mild ventricular prominence which is unchanged since comparison exam most likely reflecting mild cerebral volume loss. There is no mass effect or midline shift. There is no acute intracranial hemorrhage. There is no abnormal extra-axial fluid collection. The visualized portions of the paranasal sinuses, mastoid air cells and middle ears are well aerated. IMPRESSION: 1. No identified acute intracranial abnormality. Report given to LANCE Benedict, at 1:19 p.m. 04/29/2019/jatinder Dictated by: Dictated on workstation # [id number]
--- NOTE | 2019-04-29 13:23 | Diagnostic Imaging Report ---
EXAMINATION: Chest radiograph, portable AP view. DATE: April 29, 2019 at 1257 hours. INDICATION: 69-year-old female, confusion. Dysphasia and dysarthria. Evaluation for stroke. COMPARISON: June 26, 2017. FINDINGS: Stable overall appearance of the cardiomediastinal silhouette. There is no identified pneumothorax. There is no large pleural effusion. There is no identified interval focal airspace consolidation. IMPRESSION: No identified acute cardiopulmonary abnormality. Dictated by: Dictated on workstation # [id number]
--- NOTE | 2019-04-29 13:35 | NUR ---
DR ANGEL TALKED WITH NEURO AT PATIENT NOT A GOOD CANDIDATE FOR TPA DUE TO NOT SURE WHEN SYMPTOMS STARTED.
--- NOTE | 2019-04-29 13:47 | ED Neurological Problem ---
General Chief Complaint: Neuro-Stroke Like Symptoms Stated Complaint: CONFUSION Nursing Triage Note: STATES AROUND 1030 TODAY SHE WAS HAVING TOUBLE THINKING, TROUBLE SAYING WHAT SHE WANTED TO SAY AND COULD NOT GO THRU THE PROCESS OF PUTTING ON HER SHOE. Nursing Sepsis Screen: No Definite Risk Source: patient, family Exam Limitations: no limitations History of Present Illness Date Seen by Provider: Apr 29, 2019 Time Seen by Provider: 12:31 Initial Comments This 69-year-old woman presents to the emergency room by private vehicle with primary complaint of confusion. This was noted sometime between 9:30 and 10:00 during a phone conversation with her sister. Patient did not notice any problems prior to that time. She woke with a little bit of sore throat but otherwise states she felt normal. She has some difficulty with word finding and word articulation. She also repeated questions multiple times while on the phone with her sister. Patient comments that she had difficulty figuring out how to put on her shoes this morning. All of these symptoms are new and unusual for her. She denies any numbness or weakness or other focal deficits. Patient has a history of arthritis for which she takes methotrexate. She is otherwise relatively healthy. Allergies and Home Medications Allergies Coded Allergies: No Known Drug Allergies (Unverified , 09/13/14) Home Medications Azithromycin 250 Mg Tablet, 250 MG PO UD TAKE 2 TABLETS ON DAY ONE THEN TAKE 1 TABLET DAILY FOR FOUR MORE DAYS Prescribed by: JACKY ROGERS on 05/31/17900 Cholecalciferol (Vitamin D3) 1,000 Unit Capsule, 2,000 UNIT PO DAILY, (Reported) TAKES 2 (1,000 UNITS) CAPSULES Folic Acid 1 Mg Tablet, 1 MG PO DAILY, (Reported) Guaifenesin 600 Mg Tab.er.12h, 600 MG PO BID Prescribed by: JACKY ROGERS on 05/31/17900 Hydrocodone Bit/Acetaminophen 1 Each Tablet, 0.5-1 TAB PO Q6H PRN for PAIN- MODERATE, (Reported) Ipratropium/Albuterol Sulfate 3 Ml Ampul.neb, 3 ML IH RTQID PRN for DYSPNEA USE BID X 1 WK THEN CHANGE TO NEEDED, MAY USE UP TO 4 TIMES/DAY IF NEEDED FOR SHORTNESS OF BREATH Prescribed by: JACKY ROGERS on 05/31/17900 L. Acidophilus/Bulgaricus 1 Each Tablet, 1 TAB.CHEW PO AC Prescribed by: JACKY ROGERS on 05/31/17 0901 Methotrexate Tablet 2.5 Mg Tablet, 25 MG PO Andrew, (Reported) Nabumetone 750 Mg Tablet, 1,500 MG PO DAILY, (Reported) TAKES 2 (750MG) TABLETS Patient Home Medication List Home Medication List Reviewed: Yes Review of Systems Review of Systems Constitutional: no symptoms reported Eyes: No Symptoms Reported Ears, Nose, Mouth, Throat: see HPI Respiratory: no symptoms reported Cardiovascular: no symptoms reported Gastrointestinal: no symptoms reported Genitourinary: no symptoms reported : No Musculoskeletal: see HPI Skin: no symptoms reported Psychiatric/Neurological: See HPI Endocrine: No Symptoms Reported Hematologic/Lymphatic: No Symptoms Reported Past Cyxpjyb-Asnspn-Otoqxl Hx Patient Social History 2nd Hand Smoke Exposure: No Recent Foreign Travel: No Contact w/Someone Who Travel: No Recent Infectious Disease Expo: No Recent Hopitalizations: No Immunizations Up To Date Tetanus Booster (TDap): Unknown Seasonal Allergies Seasonal Allergies: No Past Medical History Surgeries: Yes (JAW SURGERY 17YRS AGO) Abdominal (umbilical hernia) Respiratory: Yes (THIS ADMISSION 05/23/17) Pneumonia Cardiac: No (HAD STRESS TEST IN Nov, WAS OK) Neurological: No Reproductive Disorders: No Female Reproductive Disorders: Denies Sexually Transmitted Disease: No HIV/AIDS: No Genitourinary: No Gastrointestinal: No Musculoskeletal: Yes (IN FEET) Arthritis, Rheumatoid Arthritis Endocrine: No Loss of Vision: Bilateral Hearing Impairment: Denies Cancer: No Psychosocial: No Integumentary: No Blood Disorders: No Adverse Reaction/Blood Tranf: No Family Medical History Cardiovascular disease 19 FATHER FH: breast cancer 19 MOTHER FH: non-Hodgkin's lymphoma G8 BROTHER FHx: rheumatoid arthritis G8 SISTER Heart murmur Heart Disease, Cancer, Other Conditions/Hx Physical Exam Vital Signs Vital Signs - First Documented 04/29/19 12:36 Temp 98.0 Pulse 101 Resp 16 B/P (MAP) 194/104 (134) Pulse Ox 98 O2 Delivery Room Air Capillary Refill : Less Than 3 Seconds Height, Weight, BMI Height: 5'10.00" Weight: 225lbs. 9.0oz. 102.145294dt; 30.7 BMI Method:Stated General Appearance: WD/WN, no apparent distress HEENT: PERRL/EOMI, normal ENT inspection, pharynx normal Neck: normal inspection Respiratory: lungs clear, normal breath sounds, no respiratory distress, no accessory muscle use Cardiovascular: regular rate, rhythm, no edema, no murmur Gastrointestinal: normal bowel sounds, non tender, soft Extremities: normal inspection, no pedal edema Neurologic/Psychiatric: no motor/sensory deficits, alert, normal mood/affect, oriented x 3 Crainal Nerves: abnormal speech (mild expressive aphasia and dysarthria), facial asymmetry Coordination/Gait: normal finger to nose (heel to rabago durable), abnormal gait (antalgic gait due to arthritis, unchanged) Motor/Sensory: no motor deficit, no sensory deficit Skin: normal color, warm/dry Stroke NIH Stroke Scale Assessment Level of Consciousness: 0=Alert (0), Level of Consciousness-Questions: 0=Answers both month/age (0), LOC Commands: 0=Performs both tasks (0), Visual Cerda: 0=No visual loss (0), Facial Movement (Facial Paresis): 0=Normal symmetrical mnt (0), Motor Function-Arms Right: 0=No drift (0), Motor Function-Arms Left: 0=No drift (0), Motor Function-Legs Right: 0=No drift (0), Motor Function-Legs Left: 0=No drift (0), Limb Ataxia: 0=Absent (0), Sensory: 0=Normal:no loss (0), Best Language: 0=No aphasia (0), Dysarthria: 1=Mild to moderate loss (1), Extinction & Inattention: 0=No abnormality (0), Total: 1 Progress/Results/Core Measures Results/Orders Lab Results Laboratory Tests Test 04/29/19 12:38 04/29/19 14:20 Range/Units White Blood Count 9.2 4.3-11.0 10^3/uL Red Blood Count 4.06 L 4.35-5.85 10^6/uL Hemoglobin 13.1 11.5-16.0 G/DL Hematocrit 39 35-52 % Mean Corpuscular Volume 95 80-99 FL Mean Corpuscular Hemoglobin 32 25-34 PG Mean Corpuscular Hemoglobin Concent 34 32-36 G/DL Red Cell Distribution Width 14.5 10.0-14.5 % Platelet Count 359 130-400 10^3/uL Mean Platelet Volume 9.7 7.4-10.4 FL Neutrophils (%) (Auto) 65 42-75 % Lymphocytes (%) (Auto) 25 12-44 % Monocytes (%) (Auto) 8 0-12 % Eosinophils (%) (Auto) 2 0-10 % Basophils (%) (Auto) 0 0-10 % Neutrophils # (Auto) 6.0 1.8-7.8 X 10^3 Lymphocytes # (Auto) 2.3 1.0-4.0 X 10^3 Monocytes # (Auto) 0.7 0.0-1.0 X 10^3 Eosinophils # (Auto) 0.2 0.0-0.3 10^3/uL Basophils # (Auto) 0.0 0.0-0.1 10^3/uL Prothrombin Time 12.8 12.2-14.7 SEC INR Comment 0.9 0.8-1.4 Activated Partial Thromboplast Time 32 24-35 SEC D-Dimer 0.41 0.00-0.49 UG/ML Sodium Level 139 135-145 MMOL/L Potassium Level 3.6 3.6-5.0 MMOL/L Chloride Level 107 98-107 MMOL/L Carbon Dioxide Level 21 21-32 MMOL/L Anion Gap 11 5-14 MMOL/L Blood Urea Nitrogen 8 7-18 MG/DL Creatinine 0.88 0.60-1.30 MG/DL Estimat Glomerular Filtration Rate > 60 BUN/Creatinine Ratio 9 Glucose Level 105 70-105 MG/DL Calcium Level 9.2 8.5-10.1 MG/DL Corrected Calcium 9.1 8.5-10.1 MG/DL Magnesium Level 2.1 1.8-2.4 MG/DL Total Bilirubin 0.4 0.1-1.0 MG/DL Aspartate Amino Transf (AST/SGOT) 18 5-34 U/L Alanine Aminotransferase (ALT/SGPT) 13 0-55 U/L Alkaline Phosphatase 75 40-136 U/L Troponin I < 0.028 <0.028 NG/ML Total Protein 6.9 6.4-8.2 GM/DL Albumin 4.1 3.2-4.5 GM/DL Urine Color YELLOW Urine Clarity CLEAR Urine pH 7 5-9 Urine Specific [place] 1.005 L 1.016-1.022 Urine Protein 1+ H NEGATIVE Urine Glucose (UA) NEGATIVE NEGATIVE Urine Ketones NEGATIVE NEGATIVE Urine Nitrite NEGATIVE NEGATIVE Urine Bilirubin NEGATIVE NEGATIVE Urine Urobilinogen NORMAL NORMAL MG/DL Urine Leukocyte Esterase 2+ H NEGATIVE Urine RBC (Auto) NEGATIVE NEGATIVE Urine RBC NONE /HPF Urine WBC 5-10 H /HPF Urine Squamous Epithelial Cells RARE /HPF Urine Crystals NONE /LPF Urine Bacteria MODERATE H /HPF Urine Casts NONE /LPF Urine Mucus NEGATIVE /LPF Urine Culture Indicated YES My Orders Orders - INDERJIT PRITCHARD MD Cbc With Automated Diff (04/29/19 12:31) Comprehensive Metabolic Panel (04/29/19 12:31) Magnesium (04/29/19 12:31) Ua Culture If Indicated (04/29/19 12:31) Ed Iv/Invasive Line Start (04/29/19 12:31) Protime With Inr (04/29/19 12:46) Partial Thromboplastin Time (04/29/19 12:46) Fibrin Degradation Products (04/29/19 12:46) Troponin I (04/29/19 12:46) Chest 1 View, Ap/Pa Only (04/29/19 12:46) Ekg Tracing (04/29/19 12:46) Nothing By Mouth (04/29/19 Dinner) Accucheck Stat ONCE (04/29/19 12:46) Vital Signs Stroke Patient Q15M (04/29/19 12:46) Ct Head Wo-R/O Stroke (04/29/19 12:46) O2 (04/29/19 12:46) Intake & Output 06,14,22 (04/29/19 12:46) Monitor-Rhythm Ecg Trace Only (04/29/19 12:46) Dysphagia Screening Tool (04/29/19 12:46) Post Thrombolytic Adminstratio (04/29/19 12:46) Lipid Panel (04/30/19 06:00) Ct Angio Head/Neck (04/29/19 13:33) Iohexol Injection (Omnipaque 350 Mg/Ml 1 (04/29/19 14:30) Received Contrast (Hold Metformin- Contr (04/29/19 14:30) Sodium Chloride Flush (Catheter Flush Sy (04/29/19 14:30) Ns (Ivpb) (Sodium Chloride 0.9% Ivpb Bag (04/29/19 14:30) Urine Culture (04/29/19 14:20) Ceftriaxone For Iv Use (Rocephin For I (04/29/19 16:00) Aspirin Tablet (Aspirin Tablet) (04/29/19 16:00) Medications Given in ED Current Medications Medications Dose Ordered Sig/Joi Route Start Time Stop Time Status Last Admin Dose Admin Iohexol 100 ml ONCE ONCE IV 04/29/19 14:30 04/29/19 14:31 DC 04/29/19 14:19 75 ML Sodium Chloride 10 ml NEEDED PRN IV 04/29/19 14:30 04/29/19 16:30 DC 04/29/19 14:19 10 ML Sodium Chloride 100 ml ONCE ONCE IV 04/29/19 14:30 04/29/19 14:31 DC 04/29/19 14:19 80 ML Vital Signs/I&O 04/29/19 12:36 Temp 98.0 Pulse 101 Resp 16 B/P (MAP) 194/104 (134) Pulse Ox 98 O2 Delivery Room Air Blood Pressure Mean: 134 Progress Progress Note #1: Time: 13:43 Progress Note Patient was felt to have some possible symptoms of stroke during her nursing triage. NIH score was 3 due to some speech deficit, facial asymmetry, and difficulty identifying body parts on touch. CT of the head was unremarkable. Labs have returned are also unremarkable. I discussed the case with Dr. Buck, stroke neurologist on-call at [facility] at 13:28. Due to questionable last known well time and minor deficits, administration of thrombolytics is felt more risky than beneficial. I explain situation to the patient who agrees. CT angiogram has been added to the workup. Progress Note #2: Progress Note Patient had no progression of symptoms during her ER stay. She was found to have a urinary tract infection. She was given Rocephin. Aspirin was also given after dysphagia screen was cleared. Case was discussed with Dr. Moore who is agreeable to admission. The post stroke order set was used. She requested consultation with Dr. Cantu who was contacted from the ER. Patient's symptoms were relatively minor. She did continue to have some difficulty with finding and articulating words. Minor stroke was suspected. Confirmation with MRI could be considered when available. She also had some difficulty with the NIH with identifying location of sensation. She consistently stated touch to the hand and wrist was on the foot and ankle. She continued to make this mistake even after I brought it to her attention. Initial ECG Impression Date: Apr 29, 2019 Initial ECG Impression Time: 12:45 Initial ECG Rate: 91 Initial ECG Rhythm: Normal Sinus Initial ECG Impression: Normal Comment Normal sinus rhythm with no ST elevation or depression. No abnormal intervals or axis deviation. Diagnostic Imaging Diagonstic Imaging: CT Plain Films/CT/US/NM/MRI: head Comments CT head viewed by me and report reviewed. See report below: NAME: BAKARI CORTEZ [facility] REC#: [id number] PT STATUS: REG ER : 1950 PHYSICIAN: INDERJIT PRITCHARD MD ADMIT DATE: 04/29/19/ER Draft Date of Exam:04/29/19 CT HEAD WO-R/O STROKE PROCEDURE: CT head wo r/o stroke. TECHNIQUE: Multiple contiguous axial images were obtained through the brain without the use of intravenous contrast. Auto Exposure Controls were utilized during the CT exam to meet ALARA standards for radiation dose reduction. DATE: April 29, 2019. COMPARISON: CT head and cervical spine June 27, 2015. INDICATION: 69-year-old female, confusion. Dysarthria and dysphasia. FINDINGS: There is mild ventricular prominence which is unchanged since comparison exam most likely reflecting mild cerebral volume loss. There is no mass effect or midline shift. There is no acute intracranial hemorrhage. There is no abnormal extra-axial fluid collection. The visualized portions of the paranasal sinuses, mastoid air cells and middle ears are well aerated. IMPRESSION: 1. No identified acute intracranial abnormality. Report given to LANCE Benedict, at 1:19 p.m. 04/29/2019/jatinder Dictated on workstation # [id number] Dict: 04/29/19 1257 Trans: 04/29/19 1320 [facility] [id number] Interpreted by: OBI BAÑUELOS MD Diagonstic Imaging: Xray Plain Films/CT/US/NM/MRI: chest Comments Chest x-ray viewed by me and report reviewed. See report below: NAME: BAKARI CORTEZ [facility] REC#: [id number] PT STATUS: REG ER : 1950 PHYSICIAN: INDERJIT PRITCHARD MD ADMIT DATE: 04/29/19/ER Draft Date of Exam:04/29/19 CHEST 1 VIEW, AP/PA ONLY EXAMINATION: Chest radiograph, portable AP view. DATE: April 29, 2019 at 1257 hours. INDICATION: 69-year-old female, confusion. Dysphasia and dysarthria. Evaluation for stroke. COMPARISON: June 26, 2017. FINDINGS: Stable overall appearance of the cardiomediastinal silhouette. There is no identified pneumothorax. There is no large pleural effusion. There is no identified interval focal airspace consolidation. IMPRESSION: No identified acute cardiopulmonary abnormality. Dictated on workstation # [id number] Dict: 04/29/19 1306 Trans: 04/29/19 1323 [facility] [phone] Interpreted by: OBI BAÑUELOS MD Diagonstic Imaging: CT Plain Films/CT/US/NM/MRI: head Comments CT angiogram head and neck viewed by me and report reviewed. Discussed with the radiologist. See report below: NAME: BAKARI CORTEZ [facility] REC#: [id number] PT STATUS: REG ER : 1950 PHYSICIAN: INDERJIT PRITCHARD MD ADMIT DATE: 04/29/19/ER Draft Date of Exam:04/29/19 CT ANGIO HEAD/NECK PROCEDURE: CT angiography of the head and CT angiography of the neck with and without contrast. TECHNIQUE: Contiguous noncontrast images were obtained from the skull base through the vertex. After intravenous contrast administration, helical CT angiography of the neck was performed. Source data was reformatted into multiple MIP projections. Delayed post contrast acquisition was also obtained. Auto Exposure Controls were utilized during the CT exam to meet ALARA standards for radiation dose reduction. INDICATION: Dysphagia. FINDINGS: The CT head exam performed earlier today failed to show any sign of an acute intracranial abnormality. On this study, there is no definite defect within the intracranial arterial circulation to suggest a thrombus. There is no sign of an aneurysm of the [place] either. There is no hemodynamically significant stenosis identified. The images of the neck failed to show any evidence for hemodynamically significant stenosis of either carotid system. Both vertebral arteries were opacified. The left vertebral artery is dominant. There is no mass or adenopathy involving neck. The thyroid gland is generally unremarkable. There are chronic changes involving the lung apices but there is no acute abnormality identified. The bone windows do show fairly severe degenerative disc and bony disease at C4-5, C5-6 and C6-7. There is no acute bony abnormality appreciated, however. IMPRESSION: 1. There is no defect within the intracranial circulation to suggest a thrombus. There is no evidence for an aneurysm of the [place] either. 2. If clinical concern regarding an acute intracranial abnormality persists, then MRI would be recommended for further study. 3. There is no hemodynamically significant stenosis of the carotid systems. Both vertebral arteries were opacified and the left vertebral artery is dominant. 4. These results were discussed with Dr. Inderjit Pritchard. Dictated on workstation # [id number] Dict: 04/29/19 1433 Trans: 04/29/19 1445 KB [id number] Interpreted by: LASHAWN DOSS MD Departure Communication (Admissions) Time/Spoke to Admitting Phy: 15:38 Dr. Moore Time/Spoke to Consulting Phy: 16:01 Dr. Cantu Impression Primary Impression: Weakness on right side of face Additional Impressions: Expressive aphasia Urinary tract infection Qualified Codes: N39.0 - Urinary tract infection, site not specified Disposition: ADMITTED INPATIENT Condition: Improved Admissions Decision to Admit Reason: Admit from ER (General) Decision to Admit/Date: Apr 29, 2019 Time/Decision to Admit Time: 15:35 Departure-Patient Inst. Referrals: JACKY ROGERS MD (PCP/Family) Primary Care Physician INDERJIT PRITCHARD MD Apr 29, 2019 13:47
[2019-04-29] MEDS ORDERED: IOHEXOL 350 MG/ML 100 ML (OMNIPAQUE 350) VIAL IV ONE (14:30)
[2019-04-29] MEDS ORDERED: CATHETER FLUSH 10 ML SYR IV PRN ×2 (14:30→16:45)
[2019-04-29] MEDS ORDERED: HOLD METFORMIN - RECEIVED CONTRAST 20 ML VIAL IV SCH (14:30)
[2019-04-29] MEDS ORDERED: NS 100 ML (IVPB) BAG IV ONE (14:30)
[2019-04-29 14:35] LABS: BILIRUBIN,URINE NEGATIVE (NEGATIVE); CLARITY,URINE CLEAR; COLOR,URINE YELLOW; GLUCOSE, URINE (UA) NEGATIVE (NEGATIVE); KETONES,URINE NEGATIVE (NEGATIVE); LEUKOCYTE ESTERASE ,URINE 2+ (NEGATIVE); NITRITE,URINE NEGATIVE (NEGATIVE); PH,URINE 7 (5-9); PROTEIN,URINE 1+ (NEGATIVE); UROBILINOGEN,URINE NORMAL (NORMAL)
--- NOTE | 2019-04-29 14:46 | Diagnostic Imaging Report ---
PROCEDURE: CT angiography of the head and CT angiography of the neck with and without contrast. TECHNIQUE: Contiguous noncontrast images were obtained from the skull base through the vertex. After intravenous contrast administration, helical CT angiography of the neck was performed. Source data was reformatted into multiple MIP projections. Delayed post contrast acquisition was also obtained. Auto Exposure Controls were utilized during the CT exam to meet ALARA standards for radiation dose reduction. INDICATION: Dysphagia. FINDINGS: The CT head exam performed earlier today failed to show any sign of an acute intracranial abnormality. On this study, there is no definite defect within the intracranial arterial circulation to suggest a thrombus. There is no sign of an aneurysm of the [place] either. There is no hemodynamically significant stenosis identified. The images of the neck failed to show any evidence for hemodynamically significant stenosis of either carotid system. Both vertebral arteries were opacified. The left vertebral artery is dominant. There is no mass or adenopathy involving neck. The thyroid gland is generally unremarkable. There are chronic changes involving the lung apices but there is no acute abnormality identified. The bone windows do show fairly severe degenerative disc and bony disease at C4-5, C5-6 and C6-7. There is no acute bony abnormality appreciated, however. IMPRESSION: 1. There is no defect within the intracranial circulation to suggest a thrombus. There is no evidence for an aneurysm of the [place] either. 2. If clinical concern regarding an acute intracranial abnormality persists, then MRI would be recommended for further study. 3. There is no hemodynamically significant stenosis of the carotid systems. Both vertebral arteries were opacified and the left vertebral artery is dominant. 4. These results were discussed with Dr. Inderjit Pritchard. Dictated by: Dictated on workstation # [id number]
[2019-04-29 15:21] LABS: BACTERIA,URINE MODERATE /HPF; SQUAMOUS EPITHELIAL CELL,UR RARE /HPF
--- NOTE | 2019-04-29 15:51 | NUR ---
CALLED FOR ROOM
[2019-04-29] MEDS ORDERED: ASPIRIN 325 MG (5 GR) TABLET PO ONE (16:00)
[2019-04-29] MEDS ORDERED: cefTRIAXone FOR IV USE 1,000 MG in WATER (STERILE) FOR INJECTION 10 ML IV ONE (16:00)
[2019-04-29 16:20] VITALS: BP 147/90
--- NOTE | 2019-04-29 16:24 | NUR ---
BAKARI CORTEZ admitted to room 418-1, with an admitting diagnosis of RIGHT FACIAL WEAKNESS, EXPRESSIVE APHASIA, URINARY TRACT INFECTION, on 04/29/19 from ED via WHEELCHAIR, accompanied by ED STAFF AND FRIEND. BAKARI CORTEZ introduced to surroundings, call light, bed controls, phone, TV, temperature control, lights, meal times, smoking policy, visitor policy, side rail policy, bathrooms and showers. Patient Rights given to patient in the handbook. BAKARI CORTEZ verbalizes understanding that [facility] is not responsible for the loss or damage to any personal effects or valuables that are kept in the patients possession during their hospitalization. The following Patient Care Plans were discussed with the PATIENT: Discharge Planning, CEREBRAL VASCULAR ACCIDENT, URINARY TRACT INFECTION and KNOWLEDGE DEFICIT. BAKARI CORTEZ Juani verbalizes understanding of Interdisciplinary Patient Education. Patient and/or family were informed about the Rapid Response Team and its purpose.
[2019-04-29] MEDS ORDERED: MILK OF MAGNESIA 400 MG/5 ML 30 ML UDC PO PRN (16:45)
[2019-04-29] MEDS ORDERED: ONDANSETRON 4 MG/2 ML (SDV) Z0FRAN IV PRN (16:45)
--- NOTE | 2019-04-29 16:51 | NUR ---
NOTIFIED [facility] OPERATOR - ECHO AND MRI ORDERED
[2019-04-29] MEDS ORDERED: diphenhydrAMINE 25 MG TAB (BENADRYL) PO PRN (17:00)
[2019-04-29] MEDS ORDERED: ALPRAZolam 0.25 MG (XANAX) TAB PO PRN (17:00)
[2019-04-29] MEDS ORDERED: DOCUSATE SODIUM 100 MG (COLACE) CAP PO PRN (17:00)
[2019-04-29] MEDS ORDERED: ONDANSETRON 4 MG (ZOFRAN) ORAL DISSOLVE TAB PO PRN (17:00)
[2019-04-29] MEDS ORDERED: MELATONIN 3 MG TABLET PO PRN (17:00)
[2019-04-29] MEDS ORDERED: ONDANSETRON 4 MG/2 ML (SDV) Z0FRAN IVP PRN (17:00)
[2019-04-29] MEDS ORDERED: CALCIUM CARBONATE 500 MG (TUMS) TAB.CHEW PO PRN (17:00)
--- NOTE | 2019-04-29 17:00 | NUR ---
CALLED [facility] PER PATIENT'S FRIEND'S REQUEST TO REMIND THE DOCTOR THAT HE SAID HE WOULD CALL THE PATIENT'S SISTER JOSÉ MCCLAIN.
--- NOTE | 2019-04-29 17:03 | NUR ---
NOTIFIED DR RYAN. NO MRI AVAILABLE UNTIL WEDNESDAY.
--- NOTE | 2019-04-29 17:18 | NUR ---
DR RYAN NOTIFIED ECHO WILL BE DONE TOMORROW.
[2019-04-29] MEDS ORDERED: ASCO-129 PO (18:06)
[2019-04-29] MEDS ORDERED: [UNRECOGNIZED DRUG - OTHER] IV (18:06)
--- NOTE | 2019-04-29 18:09 | NUR ---
WENT OVER HOME MEDICATIONS WITH PT.
[2019-04-29 19:15] VITALS: BP 167/95
--- OUTSIDE RECORDS SUMMARY | 2019-04-29 19:39 | XMS REPORT | CCD ---
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 Ears/Nose/Throat/Neck nasal allergies 03/13/2019 Ears/Nose/Throat/Neck nasal discharge 03/13/2019 Ears/Nose/Throat/Neck otalgia 03/13/2019 Ears/Nose/Throat/Neck postnasal drip 03/13/2019 Ears/Nose/Throat/Neck sinus congestion 03/13/2019 Cardiovascular No chest pain/pressure 03/13/2019 Cardiovascular No dyspnea 03/13/2019 Respiratory No chest congestion 03/13/2019 Respiratory cough 03/13/2019 Respiratory No dyspnea 03/13/2019 Gastrointestinal No abdominal pain 03/13/2019 Gastrointestinal No constipation 03/13/2019 Gastrointestinal No diarrhea 03/13/2019 Gastrointestinal No nausea 03/13/2019 Gastrointestinal No vomiting 03/13/2019 Dermatologic No rash 03/13/2019 Neurologic No alteration of consciousness 03/13/2019 Neurologic No mental status change 03/13/2019 Constitutional recent illness 03/06/2019 Constitutional No chills 03/06/2019 Constitutional No diaphoresis 03/06/2019 Constitutional No fever 03/06/2019 Eyes No eye erythema 03/06/2019 Ears/Nose/Throat/Neck nasal allergies 03/06/2019 Ears/Nose/Throat/Neck nasal discharge 03/06/2019 Ears/Nose/Throat/Neck postnasal drip 03/06/2019 Ears/Nose/Throat/Neck sinus congestion 03/06/2019 Ears/Nose/Throat/Neck sore throat 03/06/2019 Cardiovascular No chest pain/pressure 03/06/2019 Cardiovascular No dyspnea 03/06/2019 Respiratory No chest congestion 03/06/2019 Respiratory cough 03/06/2019 Respiratory No dyspnea 03/06/2019 Gastrointestinal No abdominal pain 03/06/2019 Gastrointestinal No constipation 03/06/2019 Gastrointestinal No diarrhea 03/06/2019 Gastrointestinal No nausea 03/06/2019 Gastrointestinal No vomiting 03/06/2019 Dermatologic No rash 03/06/2019 Neurologic No alteration of consciousness 03/06/2019 Neurologic No mental status change 03/06/2019 Ears/Nose/Throat/Neck otalgia 03/06/2019 Constitutional recent illness 08/24/2018 Constitutional No chills 08/24/2018 Constitutional No diaphoresis 08/24/2018 Constitutional No fever 08/24/2018 Eyes No eye erythema 08/24/2018 Ears/Nose/Throat/Neck nasal allergies 08/24/2018 Ears/Nose/Throat/Neck nasal discharge 08/24/2018 Ears/Nose/Throat/Neck postnasal drip 08/24/2018 Ears/Nose/Throat/Neck sinus congestion 08/24/2018 Ears/Nose/Throat/Neck No sore throat 08/24/2018 Cardiovascular No chest pain/pressure 08/24/2018 Cardiovascular No dyspnea 08/24/2018 Respiratory No chest congestion 08/24/2018 Respiratory cough 08/24/2018 Respiratory No dyspnea 08/24/2018 Gastrointestinal No abdominal pain 08/24/2018 Gastrointestinal No constipation 08/24/2018 Gastrointestinal No diarrhea 08/24/2018 Gastrointestinal No nausea 08/24/2018 Gastrointestinal No vomiting 08/24/2018 Dermatologic No rash 08/24/2018 Neurologic No alteration of consciousness 08/24/2018 Neurologic No mental status change 08/24/2018 Constitutional No recent illness 03/01/2018 Constitutional No chills 03/01/2018 Constitutional No diaphoresis 03/01/2018 Constitutional No fever 03/01/2018 Eyes No eye erythema 03/01/2018 Ears/Nose/Throat/Neck No nasal discharge 03/01/2018 Cardiovascular No chest pain/pressure 03/01/2018 Cardiovascular No dyspnea 03/01/2018 Respiratory No cough 03/01/2018 Respiratory No dyspnea 03/01/2018 Neurologic No alteration of consciousness 03/01/2018 Neurologic No mental status change 03/01/2018 Constitutional recent illness 12/30/2017 Constitutional No chills 12/30/2017 Constitutional No fever 12/30/2017 Constitutional No diaphoresis 12/30/2017 Eyes No eye erythema 12/30/2017 Ears/Nose/Throat/Neck nasal allergies 12/30/2017 Ears/Nose/Throat/Neck nasal discharge 12/30/2017 Ears/Nose/Throat/Neck postnasal drip 12/30/2017 Ears/Nose/Throat/Neck sinus congestion 12/30/2017 Ears/Nose/Throat/Neck No sore throat 12/30/2017 Cardiovascular No chest pain/pressure 12/30/2017 Cardiovascular No dyspnea 12/30/2017 Respiratory No chest congestion 12/30/2017 Respiratory cough 12/30/2017 Respiratory No dyspnea 12/30/2017 Gastrointestinal No abdominal pain 12/30/2017 Gastrointestinal No constipation 12/30/2017 Gastrointestinal No diarrhea 12/30/2017 Gastrointestinal No nausea 12/30/2017 Gastrointestinal No vomiting 12/30/2017 Dermatologic No rash 12/30/2017 Neurologic No alteration of consciousness 12/30/2017 Neurologic No mental status change 12/30/2017 Constitutional No recent illness 09/02/2017 Constitutional No chills 09/02/2017 Constitutional No diaphoresis 09/02/2017 Constitutional No fever 09/02/2017 Constitutional No malaise 09/02/2017 Eyes No blindness 09/02/2017 Ears/Nose/Throat/Neck No nasal allergies 09/02/2017 Ears/Nose/Throat/Neck No nasal discharge 09/02/2017 Cardiovascular No chest pain/pressure 09/02/2017 Cardiovascular No dyspnea 09/02/2017 Respiratory No chest congestion 09/02/2017 Respiratory No cough 09/02/2017 Gastrointestinal No abdominal pain 09/02/2017 Dermatologic No rash 09/02/2017 Neurologic No alteration of consciousness 09/02/2017 Neurologic No mental status change 09/02/2017 Psychiatric No anxiety 09/02/2017 Psychiatric No depression 09/02/2017 Musculoskeletal stiffness 09/02/2017 Musculoskeletal arthralgia(s) 09/02/2017 Cardiovascular No edema 09/02/2017 Constitutional No recent illness 07/19/2017 Constitutional No chills 07/19/2017 Constitutional No diaphoresis 07/19/2017 Constitutional No fever 07/19/2017 Eyes No eye erythema 07/19/2017 Ears/Nose/Throat/Neck No nasal allergies 07/19/2017 Ears/Nose/Throat/Neck No nasal discharge 07/19/2017 Cardiovascular No chest pain/pressure 07/19/2017 Cardiovascular No dyspnea 07/19/2017 Respiratory No chest congestion 07/19/2017 Respiratory No cough 07/19/2017 Gastrointestinal No abdominal pain 07/19/2017 Musculoskeletal joint complaint 07/19/2017 Dermatologic No rash 07/19/2017 Neurologic No alteration of consciousness 07/19/2017 Neurologic No mental status change 07/19/2017 Respiratory No dyspnea 07/19/2017 Cardiovascular edema 07/19/2017 Constitutional No recent illness 07/08/2017 Constitutional No chills 07/08/2017 Constitutional No diaphoresis 07/08/2017 Constitutional No fever 07/08/2017 Constitutional No malaise 07/08/2017 Eyes No blindness 07/08/2017 Ears/Nose/Throat/Neck No nasal allergies 07/08/2017 Ears/Nose/Throat/Neck No nasal discharge 07/08/2017 Cardiovascular No chest pain/pressure 07/08/2017 Cardiovascular No dyspnea 07/08/2017 Respiratory No chest congestion 07/08/2017 Respiratory No cough 07/08/2017 Gastrointestinal No abdominal pain 07/08/2017 Musculoskeletal joint complaint 07/08/2017 Dermatologic No rash 07/08/2017 Neurologic No alteration of consciousness 07/08/2017 Neurologic No mental status change 07/08/2017 Constitutional recent illness 06/22/2017 Constitutional No anorexia 06/22/2017 Constitutional No chills 06/22/2017 Constitutional No diaphoresis 06/22/2017 Constitutional fatigue 06/22/2017 Constitutional No fever 06/22/2017 Constitutional No insomnia 06/22/2017 Constitutional malaise 06/22/2017 Eyes No eye discharge 06/22/2017 Eyes No eye erythema 06/22/2017 Ears/Nose/Throat/Neck No dizziness 06/22/2017 Ears/Nose/Throat/Neck No headache 06/22/2017 Ears/Nose/Throat/Neck nasal allergies 06/22/2017 Ears/Nose/Throat/Neck nasal discharge 06/22/2017 Ears/Nose/Throat/Neck No sore throat 06/22/2017 Ears/Nose/Throat/Neck No otalgia 06/22/2017 Ears/Nose/Throat/Neck sinus congestion 06/22/2017 Cardiovascular No chest pain/pressure 06/22/2017 Cardiovascular No dyspnea 06/22/2017 Cardiovascular No edema 06/22/2017 Respiratory productive sputum 06/22/2017 Respiratory cough 06/22/2017 Gastrointestinal No abdominal pain 06/22/2017 Gastrointestinal No constipation 06/22/2017 Gastrointestinal No diarrhea 06/22/2017 Genitourinary/Nephrology No dysuria 06/22/2017 Musculoskeletal stiffness 06/22/2017 Musculoskeletal arthralgia(s) 06/22/2017 Musculoskeletal joint complaint 06/22/2017 Dermatologic No rash 06/22/2017 Neurologic No alteration of consciousness 06/22/2017 Psychiatric No anxiety 06/22/2017 Psychiatric No depression 06/22/2017 Constitutional recent illness 06/07/2017 Constitutional fatigue 06/07/2017 Constitutional No fever 06/07/2017 Constitutional malaise 06/07/2017 Constitutional No anorexia 06/07/2017 Constitutional No chills 06/07/2017 Constitutional No diaphoresis 06/07/2017 Constitutional No insomnia 06/07/2017 Eyes No eye discharge 06/07/2017 Eyes No eye erythema 06/07/2017 Ears/Nose/Throat/Neck No dizziness 06/07/2017 Ears/Nose/Throat/Neck No headache 06/07/2017 Ears/Nose/Throat/Neck nasal allergies 06/07/2017 Ears/Nose/Throat/Neck nasal discharge 06/07/2017 Ears/Nose/Throat/Neck No otalgia 06/07/2017 Ears/Nose/Throat/Neck sinus congestion 06/07/2017 Ears/Nose/Throat/Neck No sore throat 06/07/2017 Cardiovascular No chest pain/pressure 06/07/2017 Cardiovascular No dyspnea 06/07/2017 Cardiovascular No edema 06/07/2017 Respiratory productive sputum 06/07/2017 Respiratory cough 06/07/2017 Gastrointestinal No abdominal pain 06/07/2017 Gastrointestinal No constipation 06/07/2017 Gastrointestinal No diarrhea 06/07/2017 Genitourinary/Nephrology No dysuria 06/07/2017 Musculoskeletal joint complaint 06/07/2017 Dermatologic No rash 06/07/2017 Neurologic No alteration of consciousness 06/07/2017 Psychiatric No anxiety 06/07/2017 Psychiatric No depression 06/07/2017 Musculoskeletal stiffness 06/07/2017 Musculoskeletal arthralgia(s) 06/07/2017 Constitutional recent illness 02/11/2017 Constitutional No anorexia 02/11/2017 Constitutional No night sweats 02/11/2017 Constitutional No chills 02/11/2017 Constitutional No diaphoresis 02/11/2017 Constitutional No fatigue 02/11/2017 Constitutional No fever 02/11/2017 Constitutional No insomnia 02/11/2017 Constitutional No malaise 02/11/2017 Constitutional No weight loss 02/11/2017 Constitutional No weight gain 02/11/2017 Eyes No eye discharge 02/11/2017 Eyes No eye erythema 02/11/2017 Ears/Nose/Throat/Neck No dizziness 02/11/2017 Ears/Nose/Throat/Neck No headache 02/11/2017 Ears/Nose/Throat/Neck nasal allergies 02/11/2017 Ears/Nose/Throat/Neck nasal discharge 02/11/2017 Ears/Nose/Throat/Neck No otalgia 02/11/2017 Ears/Nose/Throat/Neck sinus congestion 02/11/2017 Ears/Nose/Throat/Neck No sore throat 02/11/2017 Cardiovascular No chest pain/pressure 02/11/2017 Cardiovascular No dyspnea 02/11/2017 Cardiovascular No edema 02/11/2017 Respiratory productive sputum 02/11/2017 Respiratory cough 02/11/2017 Gastrointestinal No abdominal pain 02/11/2017 Gastrointestinal No constipation 02/11/2017 Gastrointestinal No diarrhea 02/11/2017 Genitourinary/Nephrology No dysuria 02/11/2017 Musculoskeletal joint complaint 02/11/2017 Dermatologic No rash 02/11/2017 Neurologic No alteration of consciousness 02/11/2017 Constitutional No recent illness 01/14/2017 Constitutional No fever 01/14/2017 Eyes No blindness 01/14/2017 Ears/Nose/Throat/Neck No nasal discharge 01/14/2017 Cardiovascular No chest pain/pressure 01/14/2017 Respiratory No cough 01/14/2017 Musculoskeletal joint complaint 01/14/2017 Neurologic No alteration of consciousness 01/14/2017 Neurologic No mental status change 01/14/2017 Constitutional insomnia 01/14/2017 Dermatologic No rash 01/14/2017 Dermatologic No sores 01/14/2017 Psychiatric No depression 01/14/2017 Psychiatric No anxiety 01/14/2017 Gastrointestinal No abdominal pain 01/14/2017 Gastrointestinal No constipation 01/14/2017 Gastrointestinal No diarrhea 01/14/2017 Genitourinary/Nephrology No dysuria 01/14/2017 Constitutional No recent illness 12/22/2016 Constitutional No fever 12/22/2016 Eyes No eye erythema 12/22/2016 Ears/Nose/Throat/Neck No nasal discharge 12/22/2016 Cardiovascular No chest pain/pressure 12/22/2016 Respiratory No cough 12/22/2016 Musculoskeletal joint complaint 12/22/2016 Neurologic No alteration of consciousness 12/22/2016 Neurologic No mental status change 12/22/2016 Constitutional No recent illness 08/03/2016 Constitutional No chills 08/03/2016 Constitutional No diaphoresis 08/03/2016 Musculoskeletal joint complaint 08/03/2016 Constitutional No fever 08/03/2016 Constitutional No malaise 08/03/2016 Eyes No eye erythema 08/03/2016 Ears/Nose/Throat/Neck No nasal allergies 08/03/2016 Ears/Nose/Throat/Neck No nasal discharge 08/03/2016 Cardiovascular No chest pain/pressure 08/03/2016 Cardiovascular No dyspnea 08/03/2016 Respiratory No cough 08/03/2016 Respiratory No chest congestion 08/03/2016 Gastrointestinal No abdominal pain 08/03/2016 Dermatologic No rash 08/03/2016 Neurologic No alteration of consciousness 08/03/2016 Neurologic No mental status change 08/03/2016 Constitutional No recent illness 07/06/2016 Constitutional No anorexia 07/06/2016 Constitutional No night sweats 07/06/2016 Constitutional No chills 07/06/2016 Constitutional No diaphoresis 07/06/2016 Constitutional No fatigue 07/06/2016 Constitutional fever 07/06/2016 Constitutional No insomnia 07/06/2016 Constitutional No malaise 07/06/2016 Constitutional No weight loss 07/06/2016 Constitutional No weight gain 07/06/2016 Musculoskeletal joint complaint 07/06/2016 Constitutional No recent illness 07/01/2015 Constitutional No chills 07/01/2015 Constitutional No fatigue 07/01/2015 Constitutional No fever 07/01/2015 Ears/Nose/Throat/Neck No dizziness 07/01/2015 Ears/Nose/Throat/Neck No headache 07/01/2015 Cardiovascular No chest pain/pressure 07/01/2015 Cardiovascular near-syncope/dizziness 07/01/2015 Cardiovascular No palpitations 07/01/2015 Respiratory No chest congestion 07/01/2015 Respiratory No cough 07/01/2015 Gastrointestinal No abdominal pain 07/01/2015 Gastrointestinal No constipation 07/01/2015 Gastrointestinal No diarrhea 07/01/2015 Gastrointestinal No nausea 07/01/2015 Gastrointestinal No vomiting 07/01/2015 Genitourinary/Nephrology No dysuria 07/01/2015 Neurologic alteration of consciousness 07/01/2015 Neurologic headache 07/01/2015 Neurologic neck pain 07/01/2015 Neurologic dizziness 07/01/2015 Musculoskeletal neck pain 07/01/2015 Dermatologic sores 07/01/2015 Musculoskeletal stiffness 07/01/2015 Constitutional No chills 10/03/2014 Constitutional No fatigue 10/03/2014 Constitutional No fever 10/03/2014 Constitutional No recent illness 10/03/2014 Ears/Nose/Throat/Neck No dizziness 10/03/2014 Ears/Nose/Throat/Neck No headache 10/03/2014 Cardiovascular No chest pain/pressure 10/03/2014 Cardiovascular No near-syncope/dizziness 10/03/2014 Cardiovascular No palpitations 10/03/2014 Respiratory No chest congestion 10/03/2014 Respiratory No cough 10/03/2014 Gastrointestinal No abdominal pain 10/03/2014 Gastrointestinal No constipation 10/03/2014 Gastrointestinal No diarrhea 10/03/2014 Gastrointestinal No nausea 10/03/2014 Gastrointestinal No vomiting 10/03/2014 Genitourinary/Nephrology No dysuria 10/03/2014 Neurologic No alteration of consciousness 10/03/2014 Physical Exam Exam Name System Name Item Name Status Result Effective Dates Notes Full Exam - General 1995 Constitutional general appearance Overall: well developed 03/27/2019 None Full Exam - General 1994 Constitutional general appearance Overall: in no acute distress 03/27/2019 None Full Exam - General 1994 Constitutional general appearance Overall: well nourished 03/27/2019 None Full Exam - General 1994 Eyes pupils and irises Overall: pupils equal, round, reactive to light and accomodation 03/27/2019 None Full Exam - General 1994 Ears/Nose/Throat otoscopic exam Overall: tympanic membranes clear 03/27/2019 None Full Exam - General 1994 Ears/Nose/Throat oral cavity/pharynx/larynx Overall: oral mucosa clear 03/27/2019 None Full Exam - General 1994 Ears/Nose/Throat oral cavity/pharynx/larynx Overall: oropharyngeal mucosa clear 03/27/2019 None Full Exam - General 1994 Ears/Nose/Throat oral cavity/pharynx/larynx Overall: no masses 03/27/2019 None Full Exam - General 1994 Respiratory auscultation Overall: breath sounds clear bilaterally 03/27/2019 None Full Exam - General 1994 Respiratory respiratory effort/rhythm Overall: no retractions 03/27/2019 None Full Exam - General 1994 Respiratory respiratory effort/rhythm Overall: normal rate 03/27/2019 None Full Exam - General 1994 Cardiovascular auscultation of heart Overall: regular rate 03/27/2019 None Full Exam - General 1994 Cardiovascular auscultation of heart Overall: normal heart sounds 03/27/2019 None Full Exam - General 1994 Cardiovascular auscultation of heart Overall: no murmurs 03/27/2019 None Full Exam - General 1994 Abdomen abdominal exam Overall: no tenderness 03/27/2019 None Full Exam - General 1994 Abdomen abdominal exam Overall: normal bowel sounds 03/27/2019 None Full Exam - General 1994 Lymphatic neck nodes Overall: anterior cervical chain benign 03/27/2019 None Full Exam - General 1994 Lymphatic neck nodes Overall: posterior cervical chain benign 03/27/2019 None Full Exam - General 1994 Psychiatric orientation/consciousness Overall: oriented to person, place and time 03/27/2019 None Full Exam - General 1994 Psychiatric mood and affect Overall: normal mood and affect 03/27/2019 None Full Exam - General 1994 Psychiatric mood and affect Mood: happy 03/27/2019 None Full Exam - General 1994 Constitutional general appearance Development: well developed 03/15/2019 None Full Exam - General 1994 Constitutional general appearance Development: appears stated age 0503/15/2019 None Full Exam - General 1994 Constitutional general appearance Hygiene/Attention to Grooming: good hygiene 03/15/2019 None Full Exam - General 1994 Eyes conjunctiva/eyelids Overall: conjunctiva clear 03/15/2019 None Full Exam - General 1994 Eyes conjunctiva/eyelids Overall: cornea clear 03/15/2019 None Full Exam - General 1994 Eyes conjunctiva/eyelids Overall: eyelids normal 03/15/2019 None Full Exam - General 1994 Ears/Nose/Throat lips/teeth/gingiva Overall: normal dentition 03/15/2019 None Full Exam - General 1994 Respiratory auscultation Overall: breath sounds clear bilaterally 03/15/2019 None Full Exam - General 1994 Respiratory respiratory effort/rhythm Overall: no retractions 03/15/2019 None Full Exam - General 1994 Respiratory respiratory effort/rhythm Overall: normal rate 03/15/2019 None Full Exam - General 1994 Cardiovascular extremities Overall: no clubbing 03/15/2019 None Full Exam - General 1994 Cardiovascular auscultation of heart Overall: regular rate 03/15/2019 None Full Exam - General 1994 Cardiovascular auscultation of heart Overall: normal heart sounds 03/15/2019 None Full Exam - General 1994 Musculoskeletal spine, ribs and pelvis Overall: spine benign 03/15/2019 None Full Exam - General 1994 Musculoskeletal spine, ribs and pelvis Overall: sacroiliac joint benign 03/15/2019 None Full Exam - General 1994 Musculoskeletal spine, ribs and pelvis Overall: good posture 03/15/2019 None Full Exam - General 1994 Neurologic deep tendon reflexes Overall: deep tendon reflexes intact 03/15/2019 None Full Exam - General 1994 Neurologic cranial nerves Overall: crainial nerves 2 - 12 grossly intact 03/15/2019 None Full Exam - General 1994 Psychiatric orientation/consciousness Overall: oriented to person, place and time 03/15/2019 None Full Exam - General 1994 Psychiatric mood and affect Overall: normal mood and affect 03/15/2019 None Full Exam - General 1994 Constitutional general appearance Overall: well nourished 03/13/2019 None Full Exam - General 1994 Constitutional general appearance Overall: well developed 03/13/2019 None Full Exam - General 1994 Constitutional general appearance Overall: in no acute distress 03/13/2019 None Full Exam - General 1994 Eyes pupils and irises Overall: pupils equal, round, reactive to light and accomodation 03/13/2019 None Full Exam - General 1994 Ears/Nose/Throat otoscopic exam Overall: tympanic membranes clear 03/13/2019 except for wax on right TM Full Exam - General 1994 Ears/Nose/Throat oral cavity/pharynx/larynx Overall: oropharyngeal mucosa clear 03/13/2019 None Full Exam - General 1994 Ears/Nose/Throat oral cavity/pharynx/larynx Overall: no masses 03/13/2019 None Full Exam - General 1994 Ears/Nose/Throat oral cavity/pharynx/larynx Overall: oral mucosa clear 03/13/2019 None Full Exam - General 1994 Respiratory auscultation Overall: breath sounds clear bilaterally 03/13/2019 None Full Exam - General 1994 Respiratory respiratory effort/rhythm Overall: normal rate 03/13/2019 None Full Exam - General 1994 Respiratory respiratory effort/rhythm Overall: no retractions 03/13/2019 None Full Exam - General 1994 Cardiovascular auscultation of heart Overall: regular rate 03/13/2019 None Full Exam - General 1994 Cardiovascular auscultation of heart Overall: normal heart sounds 03/13/2019 None Full Exam - General 1994 Cardiovascular auscultation of heart Overall: no murmurs 03/13/2019 None Full Exam - General 1994 Psychiatric orientation/consciousness Overall: oriented to person, place and time 03/13/2019 None Full Exam - General 1994 Psychiatric mood and affect Mood: happy 03/13/2019 None Full Exam - General 1994 Psychiatric mood and affect Overall: normal mood and affect 03/13/2019 None Full Exam - General 1994 Lymphatic neck nodes Overall: anterior cervical chain benign 03/13/2019 None Full Exam - General 1994 Lymphatic neck nodes Overall: posterior cervical chain benign 03/13/2019 None Full Exam - General 1994 Abdomen abdominal exam Overall: no tenderness 03/13/2019 None Full Exam - General 1994 Abdomen abdominal exam Overall: normal bowel sounds 03/13/2019 None Full Exam - ENT Constitutional general appearance Overall: well nourished 03/06/2019 None Full Exam - ENT Constitutional general appearance Overall: well developed 03/06/2019 None Full Exam - ENT Constitutional general appearance Overall: in no acute distress 03/06/2019 None Full Exam - ENT Ears/Nose/Throat otoscopic exam Left tympanic membrane: air-fluid level 03/06/2019 None Full Exam - ENT Ears/Nose/Throat otoscopic exam Right tympanic membrane: air-fluid level 03/06/2019 None Full Exam - ENT Ears/Nose/Throat nasal mucosa, septum, turbinates Drainage: clear 03/06/2019 None Full Exam - ENT Ears/Nose/Throat nasal mucosa, septum, turbinates Drainage: yellow 03/06/2019 None Full Exam - ENT Ears/Nose/Throat lips/teeth/gingiva Overall: benign lips 03/06/2019 None Full Exam - ENT Ears/Nose/Throat oropharynx Posterior Pharynx: clear post nasal drainage 03/06/2019 None Full Exam - ENT Face and Head palpation Left maxillary sinus: tender 03/06/2019 None Full Exam - ENT Face and Head palpation Right maxillary sinus: tender 03/06/2019 None Full Exam - ENT Respiratory inspection Overall: no retractions 03/06/2019 None Full Exam - ENT Respiratory inspection Overall: normal rate 03/06/2019 None Full Exam - ENT Respiratory auscultation Overall: breath sounds clear bilaterally 03/06/2019 None Full Exam - ENT Cardiovascular auscultation of heart Overall: regular rate 03/06/2019 None Full Exam - ENT Cardiovascular auscultation of heart Overall: normal heart sounds 03/06/2019 None Full Exam - ENT Lymphatic palpation of lymph nodes Overall: anterior cervical chain benign 03/06/2019 None Full Exam - ENT Lymphatic palpation of lymph nodes Overall: posterior cervical chain benign 03/06/2019 None Full Exam - ENT Neurologic mood and affect Overall: normal mood 03/06/2019 None Full Exam - ENT Neurologic mood and affect Overall: normal affect 03/06/2019 None Full Exam - ENT Neurologic orientation Overall: oriented to person, place and time 03/06/2019 None Full Exam - ENT Ears/Nose/Throat otoscopic exam Left external auditory canal: complete cerumen impaction 03/06/2019 None Full Exam - ENT Ears/Nose/Throat otoscopic exam Right external auditory canal: complete cerumen impaction 03/06/2019 None Full Exam - ENT Ears/Nose/Throat otoscopic exam Right external auditory canal: tender 03/06/2019 None Full Exam - ENT Ears/Nose/Throat otoscopic exam Left external auditory canal: tender 03/06/2019 None Full Exam - ENT Ears/Nose/Throat otoscopic exam Left tympanic membrane: erythematous 03/06/2019 None Full Exam - ENT Ears/Nose/Throat otoscopic exam Right tympanic membrane: erythematous 03/06/2019 None Full Exam - ENT Constitutional general appearance Overall: well nourished 08/24/2018 None Full Exam - ENT Constitutional general appearance Overall: well developed 08/24/2018 None Full Exam - ENT Constitutional general appearance Overall: in no acute distress 08/24/2018 None Full Exam - ENT Ears/Nose/Throat otoscopic exam Overall: external auditory canals normal 08/24/2018 None Full Exam - ENT Ears/Nose/Throat otoscopic exam Left tympanic membrane: air-fluid level 08/24/2018 None Full Exam - ENT Ears/Nose/Throat otoscopic exam Right tympanic membrane: air-fluid level 08/24/2018 None Full Exam - ENT Ears/Nose/Throat nasal mucosa, septum, turbinates Drainage: clear 08/24/2018 None Full Exam - ENT Ears/Nose/Throat nasal mucosa, septum, turbinates Drainage: yellow 08/24/2018 None Full Exam - ENT Ears/Nose/Throat lips/teeth/gingiva Overall: benign lips 08/24/2018 None Full Exam - ENT Ears/Nose/Throat oropharynx Posterior Pharynx: clear post nasal drainage 08/24/2018 None Full Exam - ENT Face and Head palpation Left maxillary sinus: tender 08/24/2018 None Full Exam - ENT Face and Head palpation Right maxillary sinus: tender 08/24/2018 None Full Exam - ENT Respiratory inspection Overall: no retractions 08/24/2018 None Full Exam - ENT Respiratory inspection Overall: normal rate 08/24/2018 None Full Exam - ENT Respiratory auscultation Overall: breath sounds clear bilaterally 08/24/2018 None Full Exam - ENT Cardiovascular auscultation of heart Overall: regular rate 08/24/2018 None Full Exam - ENT Cardiovascular auscultation of heart Overall: normal heart sounds 08/24/2018 None Full Exam - ENT Lymphatic palpation of lymph nodes Overall: anterior cervical chain benign 08/24/2018 None Full Exam - ENT Lymphatic palpation of lymph nodes Overall: posterior cervical chain benign 08/24/2018 None Full Exam - ENT Neurologic mood and affect Overall: normal mood 08/24/2018 None Full Exam - ENT Neurologic mood and affect Overall: normal affect 08/24/2018 None Full Exam - ENT Neurologic orientation Overall: oriented to person, place and time 08/24/2018 None Full Exam - General 1994 Constitutional general appearance Overall: well developed 03/01/2018 None Full Exam - General 1994 Constitutional general appearance Overall: in no acute distress 03/01/2018 None Full Exam - General 1994 Constitutional general appearance Overall: well nourished 03/01/2018 None Full Exam - General 1994 Eyes conjunctiva/eyelids Overall: conjunctiva clear 03/01/2018 None Full Exam - General 1994 Eyes conjunctiva/eyelids Overall: eyelids normal 03/01/2018 None Full Exam - General 1994 Ears/Nose/Throat lips/teeth/gingiva Overall: benign lips 03/01/2018 None Full Exam - General 1994 Respiratory respiratory effort/rhythm Overall: no retractions 03/01/2018 None Full Exam - General 1994 Respiratory respiratory effort/rhythm Overall: normal rate 03/01/2018 None Full Exam - General 1994 Musculoskeletal head and neck Overall: head atraumatic 03/01/2018 None Full Exam - General 1994 Neurologic cranial nerves Overall: crainial nerves 2 - 12 grossly intact 03/01/2018 None Full Exam - General 1994 Psychiatric orientation/consciousness Overall: oriented to person, place and time 03/01/2018 None Full Exam - General 1994 Psychiatric mood and affect Overall: normal mood and affect 03/01/2018 None Full Exam - General 1994 Psychiatric appearance Overall: well-groomed, good eye contact 03/01/2018 None Full Exam - ENT Constitutional general appearance Overall: well nourished 12/30/2017 None Full Exam - ENT Constitutional general appearance Overall: well developed 12/30/2017 None Full Exam - ENT Constitutional general appearance Overall: in no acute distress 12/30/2017 None Full Exam - ENT Ears/Nose/Throat otoscopic exam Overall: external auditory canals normal 12/30/2017 None Full Exam - ENT Ears/Nose/Throat otoscopic exam Left tympanic membrane: air-fluid level 12/30/2017 None Full Exam - ENT Ears/Nose/Throat otoscopic exam Right tympanic membrane: air-fluid level 12/30/2017 None Full Exam - ENT Ears/Nose/Throat nasal mucosa, septum, turbinates Drainage: clear 12/30/2017 None Full Exam - ENT Ears/Nose/Throat nasal mucosa, septum, turbinates Drainage: yellow 12/30/2017 None Full Exam - ENT Ears/Nose/Throat lips/teeth/gingiva Overall: benign lips 12/30/2017 None Full Exam - ENT Ears/Nose/Throat oropharynx Posterior Pharynx: clear post nasal drainage 12/30/2017 None Full Exam - ENT Face and Head palpation Left maxillary sinus: tender 12/30/2017 None Full Exam - ENT Face and Head palpation Right maxillary sinus: tender 12/30/2017 None Full Exam - ENT Respiratory inspection Overall: no retractions 12/30/2017 None Full Exam - ENT Respiratory inspection Overall: normal rate 12/30/2017 None Full Exam - ENT Respiratory auscultation Overall: breath sounds clear bilaterally 12/30/2017 None Full Exam - ENT Cardiovascular auscultation of heart Overall: regular rate 12/30/2017 None Full Exam - ENT Cardiovascular auscultation of heart Overall: normal heart sounds 12/30/2017 None Full Exam - ENT Lymphatic palpation of lymph nodes Overall: anterior cervical chain benign 12/30/2017 None Full Exam - ENT Lymphatic palpation of lymph nodes Overall: posterior cervical chain benign 12/30/2017 None Full Exam - ENT Neurologic mood and affect Overall: normal mood 12/30/2017 None Full Exam - ENT Neurologic mood and affect Overall: normal affect 12/30/2017 None Full Exam - ENT Neurologic orientation Overall: oriented to person, place and time 12/30/2017 None Full Exam - General 1994 Constitutional general appearance Development: well developed 09/02/2017 None Full Exam - General 1994 Constitutional general appearance Development: appears stated age 1009/02/2017 None Full Exam - General 1994 Constitutional general appearance Hygiene/Attention to Grooming: good hygiene 09/02/2017 None Full Exam - General 1994 Eyes conjunctiva/eyelids Overall: conjunctiva clear 09/02/2017 None Full Exam - General 1994 Eyes conjunctiva/eyelids Overall: cornea clear 09/02/2017 None Full Exam - General 1994 Eyes conjunctiva/eyelids Overall: eyelids normal 09/02/2017 None Full Exam - General 1994 Eyes pupils and irises Overall: pupils equal, round, reactive to light and accomodation 09/02/2017 None Full Exam - General 1994 Ears/Nose/Throat otoscopic exam Overall: external auditory canals clear 09/02/2017 None Full Exam - General 1994 Ears/Nose/Throat otoscopic exam Overall: tympanic membranes clear 09/02/2017 None Full Exam - General 1994 Ears/Nose/Throat lips/teeth/gingiva Overall: benign lips 09/02/2017 None Full Exam - General 1994 Ears/Nose/Throat lips/teeth/gingiva Overall: normal dentition 09/02/2017 None Full Exam - General 1994 Ears/Nose/Throat oral cavity/pharynx/larynx Overall: oropharyngeal mucosa clear 09/02/2017 None Full Exam - General 1994 Ears/Nose/Throat oral cavity/pharynx/larynx Posterior Pharynx: no post nasal drainage 09/02/2017 erythema at left tonsilar pillar Full Exam - General 1994 Respiratory auscultation Overall: breath sounds clear bilaterally 09/02/2017 None Full Exam - General 1994 Respiratory respiratory effort/rhythm Overall: no retractions 09/02/2017 None Full Exam - General 1994 Respiratory respiratory effort/rhythm Overall: normal rate 09/02/2017 None Full Exam - General 1994 Cardiovascular extremities Overall: no clubbing 09/02/2017 None Full Exam - General 1994 Cardiovascular auscultation of heart Overall: regular rate 09/02/2017 None Full Exam - General 1994 Cardiovascular auscultation of heart Overall: normal heart sounds 09/02/2017 None Full Exam - General 1994 Abdomen abdominal exam Overall: no tenderness 09/02/2017 None Full Exam - General 1994 Abdomen abdominal exam Overall: normal bowel sounds 09/02/2017 None Full Exam - General 1994 Lymphatic neck nodes Overall: anterior cervical chain benign 09/02/2017 None Full Exam - General 1994 Lymphatic neck nodes Overall: posterior cervical chain benign 09/02/2017 None Full Exam - General 1994 Neurologic deep tendon reflexes Overall: deep tendon reflexes intact 09/02/2017 None Full Exam - General 1994 Neurologic cranial nerves Overall: crainial nerves 2 - 12 grossly intact 09/02/2017 None Full Exam - General 1994 Psychiatric orientation/consciousness Overall: oriented to person, place and time 09/02/2017 None Full Exam - General 1994 Psychiatric mood and affect Overall: normal mood and affect 09/02/2017 None Full Exam - General 1994 Musculoskeletal spine, ribs and pelvis Overall: good posture 09/02/2017 None Full Exam - General 1994 Musculoskeletal spine, ribs and pelvis Overall: sacroiliac joint benign 09/02/2017 None Full Exam - General 1994 Musculoskeletal spine, ribs and pelvis Overall: spine benign 09/02/2017 None Full Exam - General 1994 Constitutional general appearance Hygiene/Attention to Grooming: good hygiene 07/19/2017 None Full Exam - General 1994 Eyes conjunctiva/eyelids Overall: conjunctiva clear 07/19/2017 None Full Exam - General 1994 Eyes conjunctiva/eyelids Overall: eyelids normal 07/19/2017 None Full Exam - General 1994 Ears/Nose/Throat lips/teeth/gingiva Overall: benign lips 07/19/2017 None Full Exam - General 1994 Ears/Nose/Throat oral cavity/pharynx/larynx Overall: oropharyngeal mucosa clear 07/19/2017 None Full Exam - General 1994 Respiratory auscultation Overall: breath sounds clear bilaterally 07/19/2017 None Full Exam - General 1994 Respiratory respiratory effort/rhythm Overall: no retractions 07/19/2017 None Full Exam - General 1994 Respiratory respiratory effort/rhythm Overall: normal rate 07/19/2017 None Full Exam - General 1994 Cardiovascular extremities Overall: no clubbing 07/19/2017 None Full Exam - General 1994 Cardiovascular auscultation of heart Overall: regular rate 07/19/2017 None Full Exam - General 1994 Cardiovascular auscultation of heart Overall: normal heart sounds 07/19/2017 None Full Exam - General 1994 Neurologic cranial nerves Overall: crainial nerves 2 - 12 grossly intact 07/19/2017 None Full Exam - General 1994 Psychiatric orientation/consciousness Overall: oriented to person, place and time 07/19/2017 None Full Exam - General 1994 Psychiatric mood and affect Overall: normal mood and affect 07/19/2017 None Full Exam - General 1994 Constitutional general appearance Overall: well developed 07/19/2017 None Full Exam - General 1994 Constitutional general appearance Overall: in no acute distress 07/19/2017 None Full Exam - General 1994 Constitutional general appearance Overall: well nourished 07/19/2017 None Full Exam - General 1994 Ears/Nose/Throat oral cavity/pharynx/larynx Overall: oral mucosa clear 07/19/2017 None Full Exam - General 1994 Neurologic gait Overall: no ataxia, no unsteadiness 07/19/2017 None Full Exam - General 1994 Psychiatric appearance Overall: well-groomed, good eye contact 07/19/2017 None Full Exam - General 1994 Cardiovascular extremities Edema present: pitting 07/19/2017 None Full Exam - General 1994 Cardiovascular extremities Edema present: severity 1+ - 4+: 2+ 07/19/2017 None Full Exam - General 1994 Cardiovascular extremities Edema present: bilateral 07/19/2017 right > left Full Exam - General 1994 Cardiovascular extremities Edema present: to leg 07/19/2017 None Full Exam - General 1994 Constitutional general appearance Development: well developed 07/08/2017 None Full Exam - General 1994 Constitutional general appearance Development: appears stated age 0807/08/2017 None Full Exam - General 1994 Constitutional general appearance Hygiene/Attention to Grooming: good hygiene 07/08/2017 None Full Exam - General 1994 Eyes conjunctiva/eyelids Overall: conjunctiva clear 07/08/2017 None Full Exam - General 1994 Eyes conjunctiva/eyelids Overall: cornea clear 07/08/2017 None Full Exam - General 1994 Eyes conjunctiva/eyelids Overall: eyelids normal 07/08/2017 None Full Exam - General 1994 Eyes pupils and irises Overall: pupils equal, round, reactive to light and accomodation 07/08/2017 None Full Exam - General 1994 Ears/Nose/Throat otoscopic exam Overall: external auditory canals clear 07/08/2017 None Full Exam - General 1994 Ears/Nose/Throat otoscopic exam Overall: tympanic membranes clear 07/08/2017 None Full Exam - General 1994 Ears/Nose/Throat lips/teeth/gingiva Overall: benign lips 07/08/2017 None Full Exam - General 1994 Ears/Nose/Throat lips/teeth/gingiva Overall: normal dentition 07/08/2017 None Full Exam - General 1994 Ears/Nose/Throat oral cavity/pharynx/larynx Overall: oropharyngeal mucosa clear 07/08/2017 None Full Exam - General 1994 Ears/Nose/Throat oral cavity/pharynx/larynx Posterior Pharynx: no post nasal drainage 07/08/2017 erythema at left tonsilar pillar Full Exam - General 1994 Respiratory auscultation Overall: breath sounds clear bilaterally 07/08/2017 None Full Exam - General 1994 Respiratory respiratory effort/rhythm Overall: no retractions 07/08/2017 None Full Exam - General 1994 Respiratory respiratory effort/rhythm Overall: normal rate 07/08/2017 None Full Exam - General 1994 Cardiovascular extremities Overall: no clubbing 07/08/2017 None Full Exam - General 1994 Cardiovascular auscultation of heart Overall: regular rate 07/08/2017 None Full Exam - General 1994 Cardiovascular auscultation of heart Overall: normal heart sounds 07/08/2017 None Full Exam - General 1994 Abdomen abdominal exam Overall: no tenderness 07/08/2017 None Full Exam - General 1994 Abdomen abdominal exam Overall: normal bowel sounds 07/08/2017 None Full Exam - General 1994 Lymphatic neck nodes Overall: anterior cervical chain benign 07/08/2017 None Full Exam - General 1994 Lymphatic neck nodes Overall: posterior cervical chain benign 07/08/2017 None Full Exam - General 1994 Neurologic deep tendon reflexes Overall: deep tendon reflexes intact 07/08/2017 None Full Exam - General 1994 Neurologic cranial nerves Overall: crainial nerves 2 - 12 grossly intact 07/08/2017 None Full Exam - General 1994 Psychiatric orientation/consciousness Overall: oriented to person, place and time 07/08/2017 None Full Exam - General 1994 Psychiatric mood and affect Overall: normal mood and affect 07/08/2017 None Full Exam - General 1994 Constitutional general appearance Development: well developed 06/22/2017 None Full Exam - General 1994 Constitutional general appearance Development: appears stated age 0806/22/2017 None Full Exam - General 1994 Constitutional general appearance Hygiene/Attention to Grooming: good hygiene 06/22/2017 None Full Exam - General 1994 Eyes conjunctiva/eyelids Overall: conjunctiva clear 06/22/2017 None Full Exam - General 1994 Eyes conjunctiva/eyelids Overall: cornea clear 06/22/2017 None Full Exam - General 1994 Eyes conjunctiva/eyelids Overall: eyelids normal 06/22/2017 None Full Exam - General 1994 Eyes pupils and irises Overall: pupils equal, round, reactive to light and accomodation 06/22/2017 None Full Exam - General 1994 Ears/Nose/Throat otoscopic exam Overall: external auditory canals clear 06/22/2017 None Full Exam - General 1994 Ears/Nose/Throat otoscopic exam Overall: tympanic membranes clear 06/22/2017 None Full Exam - General 1994 Ears/Nose/Throat lips/teeth/gingiva Overall: benign lips 06/22/2017 None Full Exam - General 1994 Ears/Nose/Throat lips/teeth/gingiva Overall: normal dentition 06/22/2017 None Full Exam - General 1994 Ears/Nose/Throat oral cavity/pharynx/larynx Overall: oropharyngeal mucosa clear 06/22/2017 None Full Exam - General 1994 Ears/Nose/Throat oral cavity/pharynx/larynx Posterior Pharynx: no post nasal drainage 06/22/2017 erythema at left tonsilar pillar Full Exam - General 1994 Respiratory auscultation Overall: breath sounds clear bilaterally 06/22/2017 None Full Exam - General 1994 Respiratory respiratory effort/rhythm Overall: no retractions 06/22/2017 None Full Exam - General 1994 Respiratory respiratory effort/rhythm Overall: normal rate 06/22/2017 None Full Exam - General 1994 Cardiovascular extremities Overall: no clubbing 06/22/2017 None Full Exam - General 1994 Cardiovascular auscultation of heart Overall: regular rate 06/22/2017 None Full Exam - General 1994 Cardiovascular auscultation of heart Overall: normal heart sounds 06/22/2017 None Full Exam - General 1994 Abdomen abdominal exam Overall: no tenderness 06/22/2017 None Full Exam - General 1994 Abdomen abdominal exam Overall: normal bowel sounds 06/22/2017 None Full Exam - General 1994 Neurologic deep tendon reflexes Overall: deep tendon reflexes intact 06/22/2017 None Full Exam - General 1994 Neurologic cranial nerves Overall: crainial nerves 2 - 12 grossly intact 06/22/2017 None Full Exam - General 1994 Psychiatric orientation/consciousness Overall: oriented to person, place and time 06/22/2017 None Full Exam - General 1994 Psychiatric mood and affect Overall: normal mood and affect 06/22/2017 None Full Exam - General 1994 Lymphatic neck nodes Overall: anterior cervical chain benign 06/22/2017 None Full Exam - General 1994 Lymphatic neck nodes Overall: posterior cervical chain benign 06/22/2017 None Full Exam - General 1994 Constitutional general appearance Development: appears stated age 0706/07/2017 None Full Exam - General 1994 Constitutional general appearance Development: well developed 06/07/2017 None Full Exam - General 1994 Constitutional general appearance Hygiene/Attention to Grooming: good hygiene 06/07/2017 None Full Exam - General 1994 Eyes conjunctiva/eyelids Overall: conjunctiva clear 06/07/2017 None Full Exam - General 1994 Eyes conjunctiva/eyelids Overall: cornea clear 06/07/2017 None Full Exam - General 1994 Eyes conjunctiva/eyelids Overall: eyelids normal 06/07/2017 None Full Exam - General 1994 Eyes pupils and irises Overall: pupils equal, round, reactive to light and accomodation 06/07/2017 None Full Exam - General 1994 Ears/Nose/Throat otoscopic exam Overall: external auditory canals clear 06/07/2017 None Full Exam - General 1994 Ears/Nose/Throat otoscopic exam Overall: tympanic membranes clear 06/07/2017 None Full Exam - General 1994 Ears/Nose/Throat lips/teeth/gingiva Overall: benign lips 06/07/2017 None Full Exam - General 1994 Ears/Nose/Throat lips/teeth/gingiva Overall: normal dentition 06/07/2017 None Full Exam - General 1994 Ears/Nose/Throat oral cavity/pharynx/larynx Overall: oropharyngeal mucosa clear 06/07/2017 None Full Exam - General 1994 Respiratory auscultation Overall: breath sounds clear bilaterally 06/07/2017 None Full Exam - General 1994 Respiratory respiratory effort/rhythm Overall: no retractions 06/07/2017 None Full Exam - General 1994 Respiratory respiratory effort/rhythm Overall: normal rate 06/07/2017 None Full Exam - General 1994 Cardiovascular extremities Overall: no clubbing 06/07/2017 None Full Exam - General 1994 Cardiovascular auscultation of heart Overall: normal heart sounds 06/07/2017 None Full Exam - General 1994 Cardiovascular auscultation of heart Overall: regular rate 06/07/2017 None Full Exam - General 1994 Abdomen abdominal exam Overall: no tenderness 06/07/2017 None Full Exam - General 1994 Abdomen abdominal exam Overall: normal bowel sounds 06/07/2017 None Full Exam - General 1994 Neurologic deep tendon reflexes Overall: deep tendon reflexes intact 06/07/2017 None Full Exam - General 1994 Neurologic cranial nerves Overall: crainial nerves 2 - 12 grossly intact 06/07/2017 None Full Exam - General 1994 Psychiatric orientation/consciousness Overall: oriented to person, place and time 06/07/2017 None Full Exam - General 1994 Psychiatric mood and affect Overall: normal mood and affect 06/07/2017 None Full Exam - General 1994 Ears/Nose/Throat oral cavity/pharynx/larynx Posterior Pharynx: no post nasal drainage 06/07/2017 erythema at left tonsilar pillar Full Exam - ENT Constitutional general appearance Overall: well nourished 02/11/2017 None Full Exam - ENT Constitutional general appearance Overall: well developed 02/11/2017 None Full Exam - ENT Constitutional general appearance Overall: in no acute distress 02/11/2017 None Full Exam - ENT Neurologic orientation Overall: oriented to person, place and time 02/11/2017 None Full Exam - ENT Integument inspection of skin Overall: no rash, lesions 02/11/2017 None Full Exam - ENT Lymphatic palpation of lymph nodes Overall: anterior cervical chain benign 02/11/2017 None Full Exam - ENT Lymphatic palpation of lymph nodes Overall: posterior cervical chain benign 02/11/2017 None Full Exam - ENT Cardiovascular auscultation of heart Overall: regular rate 02/11/2017 None Full Exam - ENT Cardiovascular auscultation of heart Overall: normal heart sounds 02/11/2017 None Full Exam - ENT Cardiovascular auscultation of heart Overall: no murmurs 02/11/2017 None Full Exam - ENT Respiratory auscultation Overall: breath sounds clear bilaterally 02/11/2017 None Full Exam - ENT Respiratory inspection Overall: normal rate 02/11/2017 None Full Exam - ENT Respiratory inspection Overall: no retractions 02/11/2017 None Full Exam - ENT Face and Head palpation Overall: no sinus tenderness 02/11/2017 None Full Exam - ENT Ears/Nose/Throat otoscopic exam Overall: external auditory canals normal 02/11/2017 None Full Exam - ENT Ears/Nose/Throat otoscopic exam Overall: tympanic membranes normal 02/11/2017 None Full Exam - ENT Ears/Nose/Throat oropharynx Overall: oral mucosa clear 02/11/2017 None Full Exam - General 1994 Constitutional general appearance Overall: well developed 01/14/2017 None Full Exam - General 1994 Constitutional general appearance Overall: well nourished 01/14/2017 None Full Exam - General 1994 Eyes conjunctiva/eyelids Overall: conjunctiva clear 01/14/2017 None Full Exam - General 1994 Ears/Nose/Throat lips/teeth/gingiva Overall: benign lips 01/14/2017 None Full Exam - General 1994 Respiratory respiratory effort/rhythm Overall: no retractions 01/14/2017 None Full Exam - General 1994 Respiratory respiratory effort/rhythm Overall: normal rate 01/14/2017 None Full Exam - General 1994 Musculoskeletal digits and nails Digits: edema 01/14/2017 None Full Exam - General 1994 Musculoskeletal digits and nails First CMC: tender 01/14/2017 None Full Exam - General 1994 Musculoskeletal digits and nails First CMC: swelling 01/14/2017 None Full Exam - General 1994 Musculoskeletal digits and nails DIPs: first 01/14/2017 None Full Exam - General 1994 Musculoskeletal digits and nails DIPs: second 01/14/2017 None Full Exam - General 1994 Musculoskeletal digits and nails DIPs: third 01/14/2017 None Full Exam - General 1994 Musculoskeletal digits and nails DIPs: fourth 01/14/2017 None Full Exam - General 1994 Musculoskeletal digits and nails DIPs: fifth 01/14/2017 None Full Exam - General 1994 Musculoskeletal digits and nails DIPs: tender 01/14/2017 None Full Exam - General 1994 Musculoskeletal digits and nails DIPs: swelling 01/14/2017 None Full Exam - General 1994 Musculoskeletal digits and nails PIPs: first 01/14/2017 None Full Exam - General 1994 Musculoskeletal digits and nails PIPs: second 01/14/2017 None Full Exam - General 1995 Musculoskeletal digits and nails PIPs: third 01/14/2017 None Full Exam - General 1994 Musculoskeletal digits and nails PIPs: fourth 01/14/2017 None Full Exam - General 1994 Musculoskeletal digits and nails PIPs: fifth 01/14/2017 None Full Exam - General 1994 Musculoskeletal digits and nails PIPs: tender 01/14/2017 None Full Exam - General 1994 Musculoskeletal digits and nails PIPs: swelling 01/14/2017 None Full Exam - General 1994 Musculoskeletal digits and nails MCPs: first 01/14/2017 None Full Exam - General 1994 Musculoskeletal digits and nails MCPs: second 01/14/2017 None Full Exam - General 1994 Musculoskeletal digits and nails MCPs: third 01/14/2017 None Full Exam - General 1994 Musculoskeletal digits and nails MCPs: fourth 01/14/2017 None Full Exam - General 1994 Musculoskeletal digits and nails MCPs: fifth 01/14/2017 None Full Exam - General 1994 Musculoskeletal digits and nails MCPs: tender 01/14/2017 None Full Exam - General 1994 Musculoskeletal digits and nails MCPs: swelling 01/14/2017 None Full Exam - General 1994 Neurologic cranial nerves Overall: crainial nerves 2 - 12 grossly intact 01/14/2017 None Full Exam - General 1994 Psychiatric orientation/consciousness Overall: oriented to person, place and time 01/14/2017 None Full Exam - General 1994 Psychiatric mood and affect Mood: flat 01/14/2017 None Full Exam - General 1994 Psychiatric appearance Overall: well-groomed, good eye contact 01/14/2017 None Full Exam - General 1994 Constitutional general appearance Evidence of Distress: in distress secondary to pain 01/14/2017 None Full Exam - General 1994 Cardiovascular auscultation of heart Overall: regular rate 01/14/2017 None Full Exam - General 1994 Cardiovascular auscultation of heart Overall: normal heart sounds 01/14/2017 None Full Exam - General 1994 Respiratory auscultation Overall: breath sounds clear bilaterally 01/14/2017 None Full Exam - General 1994 Integument inspection of skin Overall: few scattered moles, no gross abnormalities 01/14/2017 None Full Exam - General 1994 Musculoskeletal lower extremity Inspection - knee: swelling 01/14/2017 None Full Exam - General 1994 Constitutional general appearance Overall: well developed 12/22/2016 None Full Exam - General 1994 Constitutional general appearance Overall: well nourished 12/22/2016 None Full Exam - General 1994 Constitutional general appearance Evidence of Distress: mild distress 12/22/2016 None Full Exam - General 1994 Eyes conjunctiva/eyelids Overall: conjunctiva clear 12/22/2016 None Full Exam - General 1994 Ears/Nose/Throat lips/teeth/gingiva Overall: benign lips 12/22/2016 None Full Exam - General 1994 Respiratory respiratory effort/rhythm Overall: no retractions 12/22/2016 None Full Exam - General 1994 Respiratory respiratory effort/rhythm Overall: normal rate 12/22/2016 None Full Exam - General 1994 Musculoskeletal digits and nails Digits: edema 12/22/2016 None Full Exam - General 1994 Musculoskeletal digits and nails First CMC: tender 12/22/2016 None Full Exam - General 1994 Musculoskeletal digits and nails First CMC: swelling 12/22/2016 None Full Exam - General 1994 Musculoskeletal digits and nails DIPs: first 12/22/2016 None Full Exam - General 1994 Musculoskeletal digits and nails DIPs: second 12/22/2016 None Full Exam - General 1994 Musculoskeletal digits and nails DIPs: third 12/22/2016 None Full Exam - General 1994 Musculoskeletal digits and nails DIPs: fourth 12/22/2016 None Full Exam - General 1994 Musculoskeletal digits and nails DIPs: fifth 12/22/2016 None Full Exam - General 1994 Musculoskeletal digits and nails DIPs: tender 12/22/2016 None Full Exam - General 1994 Musculoskeletal digits and nails DIPs: swelling 12/22/2016 None Full Exam - General 1994 Musculoskeletal digits and nails PIPs: first 12/22/2016 None Full Exam - General 1994 Musculoskeletal digits and nails PIPs: second 12/22/2016 None Full Exam - General 1994 Musculoskeletal digits and nails PIPs: third 12/22/2016 None Full Exam - General 1994 Musculoskeletal digits and nails PIPs: fourth 12/22/2016 None Full Exam - General 1994 Musculoskeletal digits and nails PIPs: fifth 12/22/2016 None Full Exam - General 1994 Musculoskeletal digits and nails PIPs: tender 12/22/2016 None Full Exam - General 1994 Musculoskeletal digits and nails PIPs: swelling 12/22/2016 None Full Exam - General 1994 Musculoskeletal digits and nails MCPs: first 12/22/2016 None Full Exam - General 1994 Musculoskeletal digits and nails MCPs: second 12/22/2016 None Full Exam - General 1994 Musculoskeletal digits and nails MCPs: third 12/22/2016 None Full Exam - General 1994 Musculoskeletal digits and nails MCPs: fourth 12/22/2016 None Full Exam - General 1994 Musculoskeletal digits and nails MCPs: fifth 12/22/2016 None Full Exam - General 1994 Musculoskeletal digits and nails MCPs: tender 12/22/2016 None Full Exam - General 1994 Musculoskeletal digits and nails MCPs: swelling 12/22/2016 None Full Exam - General 1994 Neurologic cranial nerves Overall: crainial nerves 2 - 12 grossly intact 12/22/2016 None Full Exam - General 1994 Psychiatric orientation/consciousness Overall: oriented to person, place and time 12/22/2016 None Full Exam - General 1994 Psychiatric mood and affect Mood: flat 12/22/2016 None Full Exam - General 1994 Psychiatric appearance Overall: well-groomed, good eye contact 12/22/2016 None Full Exam - Orthopedics Constitutional general appearance Overall: well nourished 08/03/2016 None Full Exam - Orthopedics Constitutional general appearance Overall: well developed 08/03/2016 None Full Exam - Orthopedics Constitutional general appearance Overall: in no acute distress 08/03/2016 None Full Exam - Orthopedics Constitutional general appearance Overall: well groomed 08/03/2016 None Full Exam - Orthopedics Constitutional general appearance Overall: healthy appearance 08/03/2016 None Full Exam - Orthopedics Constitutional general appearance Overall: pleasant 08/03/2016 None Full Exam - Orthopedics Constitutional general appearance Overall: relaxed 08/03/2016 None Full Exam - Orthopedics Respiratory auscultation Overall: breath sounds clear bilaterally 08/03/2016 None Full Exam - Orthopedics Respiratory respiratory effort/rhythm Overall: no retractions 08/03/2016 None Full Exam - Orthopedics Respiratory respiratory effort/rhythm Overall: normal rate 08/03/2016 None Full Exam - Orthopedics Respiratory respiratory effort/rhythm Overall: normal, symmetric chest expansion 08/03/2016 None Full Exam - Orthopedics Cardiovascular examination of vasculature Overall: no clubbing, cyanosis, edema 08/03/2016 None Full Exam - Orthopedics MS: right upper extremity insp & palp - RUE Overall: normal appearance of shoulder, arm, hands 08/03/2016 None Full Exam - Orthopedics MS: right upper extremity range of motion - RUE Overall: full range of motion in shoulder 08/03/2016 None Full Exam - Orthopedics MS: right upper extremity stability - RUE Overall: shoulder, elbow, wrist stable 08/03/2016 None Full Exam - Orthopedics Psychiatric orientation/consciousness Overall: oriented to person, place and time 08/03/2016 None Full Exam - Orthopedics Constitutional general appearance Overall: cooperative 08/03/2016 None Full Exam - Orthopedics Eyes conjunctiva/eyelids Overall: conjunctiva clear 08/03/2016 None Full Exam - Orthopedics Ears/Nose/Throat oral cavity/pharynx/larynx Overall: oral mucosa clear 08/03/2016 None Full Exam - Orthopedics Ears/Nose/Throat lips/teeth/gingiva Overall: benign lips 08/03/2016 None Full Exam - Orthopedics MS: left upper extremity insp & palp - LUE Overall: normal appearance of shoulder, arm, hands 08/03/2016 None Full Exam - Orthopedics MS: left upper extremity range of motion - LUE Overall: full range of motion in shoulder 08/03/2016 None Full Exam - Orthopedics MS: left upper extremity stability - LUE Overall: shoulder, elbow, wrist stable 08/03/2016 None Full Exam - Orthopedics Neurological orientation Overall: oriented to person, place and time 08/03/2016 None Full Exam - Orthopedics Psychiatric mood and affect Overall: normal mood and affect 08/03/2016 None Full Exam - Orthopedics Psychiatric appearance Overall: well-groomed, good eye contact 08/03/2016 None Full Exam - Orthopedics Constitutional general appearance Overall: well developed 07/06/2016 None Full Exam - Orthopedics Constitutional general appearance Overall: in no acute distress 07/06/2016 None Full Exam - Orthopedics Constitutional general appearance Overall: normal body habitus 07/06/2016 None Full Exam - Orthopedics Constitutional general appearance Overall: well nourished 07/06/2016 None Full Exam - Orthopedics Constitutional general appearance Overall: no deformities 07/06/2016 None Full Exam - Orthopedics Constitutional general appearance Overall: well groomed 07/06/2016 None Full Exam - Orthopedics Constitutional general appearance Overall: no assistive devices 07/06/2016 None Full Exam - Orthopedics Constitutional general appearance Overall: healthy appearance 07/06/2016 None Full Exam - Orthopedics Constitutional general appearance Overall: relaxed 07/06/2016 None Full Exam - Orthopedics Constitutional general appearance Overall: pleasant 07/06/2016 None Full Exam - Orthopedics Constitutional general appearance Overall: cooperative 07/06/2016 None Full Exam - Orthopedics Constitutional general appearance Overall: atraumatic 07/06/2016 None Full Exam - Orthopedics Respiratory auscultation Overall: breath sounds clear bilaterally 07/06/2016 None Full Exam - Orthopedics Respiratory respiratory effort/rhythm Overall: no retractions 07/06/2016 None Full Exam - Orthopedics Respiratory respiratory effort/rhythm Overall: normal, symmetric chest expansion 07/06/2016 None Full Exam - Orthopedics Respiratory respiratory effort/rhythm Overall: normal rate 07/06/2016 None Full Exam - Orthopedics Cardiovascular examination of vasculature Overall: no clubbing, cyanosis, edema 07/06/2016 None Full Exam - Orthopedics MS: right upper extremity insp & palp - RUE Overall: normal appearance of shoulder, arm, hands 07/06/2016 None Full Exam - Orthopedics MS: right upper extremity range of motion - RUE Overall: full range of motion in shoulder 07/06/2016 None Full Exam - Orthopedics MS: right upper extremity stability - RUE Overall: shoulder, elbow, wrist stable 07/06/2016 None Full Exam - Orthopedics Psychiatric orientation/consciousness Overall: oriented to person, place and time 07/06/2016 None Full Exam - General 1994 Constitutional general appearance Development: well developed 07/01/2015 None Full Exam - General 1994 Constitutional general appearance Development: appears stated age 0807/01/2015 None Full Exam - General 1994 Constitutional general appearance Hygiene/Attention to Grooming: good hygiene 07/01/2015 None Full Exam - General 1994 Eyes conjunctiva/eyelids Overall: conjunctiva clear 07/01/2015 None Full Exam - General 1994 Eyes conjunctiva/eyelids Overall: cornea clear 07/01/2015 None Full Exam - General 1994 Eyes conjunctiva/eyelids Overall: eyelids normal 07/01/2015 None Full Exam - General 1994 Eyes pupils and irises Overall: pupils equal, round, reactive to light and accomodation 07/01/2015 None Full Exam - General 1994 Ears/Nose/Throat otoscopic exam Overall: external auditory canals clear 07/01/2015 None Full Exam - General 1994 Ears/Nose/Throat otoscopic exam Overall: tympanic membranes clear 07/01/2015 None Full Exam - General 1994 Ears/Nose/Throat lips/teeth/gingiva Overall: benign lips 07/01/2015 None Full Exam - General 1994 Ears/Nose/Throat lips/teeth/gingiva Overall: normal dentition 07/01/2015 None Full Exam - General 1994 Ears/Nose/Throat oral cavity/pharynx/larynx Overall: oral mucosa clear 07/01/2015 None Full Exam - General 1994 Ears/Nose/Throat oral cavity/pharynx/larynx Overall: oropharyngeal mucosa clear 07/01/2015 None Full Exam - General 1994 Ears/Nose/Throat oral cavity/pharynx/larynx Overall: hypopharynx benign 07/01/2015 None Full Exam - General 1994 Ears/Nose/Throat oral cavity/pharynx/larynx Overall: no masses 07/01/2015 None Full Exam - General 1994 Respiratory auscultation Overall: breath sounds clear bilaterally 07/01/2015 None Full Exam - General 1994 Respiratory respiratory effort/rhythm Overall: no retractions 07/01/2015 None Full Exam - General 1994 Respiratory respiratory effort/rhythm Overall: normal rate 07/01/2015 None Full Exam - General 1994 Cardiovascular extremities Overall: no clubbing 07/01/2015 None Full Exam - General 1994 Cardiovascular auscultation of heart Overall: regular rate 07/01/2015 None Full Exam - General 1994 Cardiovascular auscultation of heart Overall: normal heart sounds 07/01/2015 None Full Exam - General 1994 Abdomen abdominal exam Overall: no tenderness 07/01/2015 None Full Exam - General 1994 Abdomen abdominal exam Overall: normal bowel sounds 07/01/2015 None Full Exam - General 1994 Neurologic deep tendon reflexes Overall: deep tendon reflexes intact 07/01/2015 None Full Exam - General 1994 Neurologic cranial nerves Overall: crainial nerves 2 - 12 grossly intact 07/01/2015 None Full Exam - General 1994 Psychiatric orientation/consciousness Overall: oriented to person, place and time 07/01/2015 None Full Exam - General 1994 Psychiatric mood and affect Overall: normal mood and affect 07/01/2015 None Full Exam - General 1994 Integument inspection of skin Location: face 07/01/2015 brusing across forehead, zoroastrianism on left and below eyes Full Exam - General 1994 Musculoskeletal spine, ribs and pelvis Ribs: normal chest expansion 07/01/2015 ttp over left chest wall Full Exam - General 1994 Constitutional general appearance Development: appears stated age 1110/03/2014 None Full Exam - General 1994 Constitutional general appearance Development: well developed 10/03/2014 None Full Exam - General 1994 Constitutional general appearance Hygiene/Attention to Grooming: good hygiene 10/03/2014 None Full Exam - General 1994 Eyes conjunctiva/eyelids Overall: conjunctiva clear 10/03/2014 None Full Exam - General 1994 Eyes conjunctiva/eyelids Overall: cornea clear 10/03/2014 None Full Exam - General 1994 Eyes conjunctiva/eyelids Overall: eyelids normal 10/03/2014 None Full Exam - General 1994 Eyes pupils and irises Overall: pupils equal, round, reactive to light and accomodation 10/03/2014 None Full Exam - General 1994 Ears/Nose/Throat otoscopic exam Overall: external auditory canals clear 10/03/2014 None Full Exam - General 1994 Ears/Nose/Throat otoscopic exam Overall: tympanic membranes clear 10/03/2014 None Full Exam - General 1994 Ears/Nose/Throat lips/teeth/gingiva Overall: benign lips 10/03/2014 None Full Exam - General 1994 Ears/Nose/Throat lips/teeth/gingiva Overall: normal dentition 10/03/2014 None Full Exam - General 1994 Ears/Nose/Throat oral cavity/pharynx/larynx Overall: hypopharynx benign 10/03/2014 None Full Exam - General 1994 Ears/Nose/Throat oral cavity/pharynx/larynx Overall: no masses 10/03/2014 None Full Exam - General 1994 Ears/Nose/Throat oral cavity/pharynx/larynx Overall: oral mucosa clear 10/03/2014 None Full Exam - General 1994 Ears/Nose/Throat oral cavity/pharynx/larynx Overall: oropharyngeal mucosa clear 10/03/2014 None Full Exam - General 1994 Respiratory auscultation Overall: breath sounds clear bilaterally 10/03/2014 None Full Exam - General 1994 Respiratory respiratory effort/rhythm Overall: no retractions 10/03/2014 None Full Exam - General 1994 Respiratory respiratory effort/rhythm Overall: normal rate 10/03/2014 None Full Exam - General 1994 Cardiovascular extremities Overall: no clubbing 10/03/2014 None Full Exam - General 1994 Cardiovascular auscultation of heart Overall: normal heart sounds 10/03/2014 None Full Exam - General 1994 Cardiovascular auscultation of heart Overall: regular rate 10/03/2014 None Full Exam - General 1994 Abdomen abdominal exam Overall: no tenderness 10/03/2014 None Full Exam - General 1994 Abdomen abdominal exam Overall: normal bowel sounds 10/03/2014 None Full Exam - General 1994 Neurologic deep tendon reflexes Overall: deep tendon reflexes intact 10/03/2014 None Full Exam - General 1994 Neurologic cranial nerves Overall: crainial nerves 2 - 12 grossly intact 10/03/2014 None Full Exam - General 1994 Psychiatric orientation/consciousness Overall: oriented to person, place and time 10/03/2014 None Full Exam - General 1994 Psychiatric mood and affect Overall: normal mood and affect 10/03/2014 None Full Exam - General 1994 Integument inspection of skin Rash/Lesions: patch 10/03/2014 None Full Exam - General 1994 Integument inspection of skin Rash/Lesions: vesicle 10/03/2014 right hip wrapping around to abdomen and to back Procedures Procedure Codes Date PPPS, SUBSEQ VISIT CPT- 4: G0439 03/15/2019 ADMIN PNEUMOCOCCAL VACCINE SNOMED CT: 58923670 CPT-4: G0009 08/17/2018 PNEUMOCOCCAL VACC [address]: 41110964 CPT-4: 74159 08/17/2018 ADMIN INFLUENZA VIRUS VAC CPT-4: G0008 07/29/2018 FLU VAC NO PRSV 4 TACO 3 YRS+ Formatting Model/CDA Sections, Assigned to/Pepper Velasquez CPT-4: 52969Aofketa 07/29/2018 THER/PROPH/DIAG INJ SC/IM CPT-4: 78126 04/29/2018 INITIAL PREVENTIVE EXAM CPT-4: G0402 03/01/2018 THER/PROPH/DIAG INJ SC/IM CPT-4: 23009 02/24/2018 IMMUNIZATION ADMIN CPT- 4: 96321 09/02/2017 FLU VAC NO PRSV 4 TACO 3 YRS+ CPT-4: 85309 09/02/2017 TRIAMCINOLONE ACET INJ NOS CPT-4: J3301 12/22/2016 Vital Signs Date Vital 03/27/2019 Blood Pressure 1: 136/86 Code: 8480-6 BMI: 30.4 Code: 93445-3 Heart Rate 1: 91 bpm Height: 5'10" SpO2: 98% Weight: 212 lbs 03/15/2019 Blood Pressure 1: 140/78 Code: 8480-6 BMI: 30.4 Code: 95489-6 Heart Rate 1: 87 bpm Height: 5'10" SpO2: 98% Weight: 212 lbs 03/13/2019 Blood Pressure 1: 150/96 Code: 8480-6 BMI: 30.1 Code: 72107-2 Heart Rate 1: 108 bpm Height: 5'10" SpO2: 96% Weight: 210 lbs 03/06/2019 Blood Pressure 1: 154/88 Code: 8480-6 Heart Rate 1: 104 bpm Height: 5'10" SpO2: 98% Weight: 08/24/2018 Blood Pressure 1: 118/76 Code: 8480-6 BMI: 30.3 Code: 35354-4 Heart Rate 1: 84 bpm Height: 5'10" SpO2: 98% Temperature: 36.7 (C) / 98.1 (F) Weight: 211 lbs 03/01/2018 Blood Pressure 1: 134/84 Code: 8480-6 BMI: 30.3 Code: 84178-5 Heart Rate 1: 96 bpm Height: 5'10" SpO2: 96% Waist Measure (cm): 99 cm Weight: 211 lbs 12/30/2017 Blood Pressure 1: 120/74 Code: 8480-6 Heart Rate 1: 77 bpm Height: 5'10" SpO2: 98% Temperature: 37.1 (C) / 98.7 (F) Weight: 09/02/2017 Blood Pressure 1: 124/64 Code: 8480-6 BMI: 29.4 Code: 57502-4 Heart Rate 1: 80 bpm Height: 5'10" SpO2: 98% Weight: 205 lbs 07/19/2017 Blood Pressure 1: 152/80 Code: 8480-6 BMI: 29.8 Code: 59742-5 Heart Rate 1: 82 bpm Height: 5'10" SpO2: 98% Weight: 208 lbs 07/08/2017 Blood Pressure 1: 126/84 Code: 8480-6 BMI: 29.2 Code: 32825-3 Heart Rate 1: 70 bpm Height: 5'10" SpO2: 95% Weight: 203 lbs 8 oz 06/22/2017 Blood Pressure 1: 138/84 Code: 8480-6 BMI: 28.4 Code: 87545-7 Heart Rate 1: 105 bpm Height: 5'10" SpO2: 96% Weight: 198 lbs 06/07/2017 Blood Pressure 1: 138/82 Code: 8480-6 BMI: 28.7 Code: 66483-5 Heart Rate 1: 100 bpm Height: 5'10" SpO2: 93% Weight: 200 lbs 02/11/2017 Blood Pressure 1: 132/76 Code: 8480-6 BMI: 31.8 Code: 80029-1 Heart Rate 1: 89 bpm Height: 5'10" SpO2: 98% Temperature: 37.4 (C) / 99.3 (F) Weight: 221 lbs 8 oz 01/22/2017 Blood Pressure 1: 156/90 Code: 8480-6 Blood Pressure 1: 142/90 Code: 8480-6 01/14/2017 Blood Pressure 1: 136/90 Code: 8480-6 Heart Rate 1: 83 bpm Height: SpO2: 98% Weight: 12/22/2016 Blood Pressure 1: 162/98 Code: 8480-6 BMI: 32.4 Code: 67651-2 Heart Rate 1: 86 bpm Height: 5'10" SpO2: 99% Weight: 226 lbs 08/03/2016 Blood Pressure 1: 140/82 Code: 8480-6 BMI: 30.8 Code: 12037-2 Heart Rate 1: 88 bpm Height: 5'10" SpO2: 97% Weight: 215 lbs 07/06/2016 Blood Pressure 1: 130/80 Code: 8480-6 BMI: 30.8 Code: 12892-5 Heart Rate 1: 78 bpm Height: 5'10" SpO2: 96% Temperature: 36.1 (C) / 97.0 (F) Weight: 215 lbs 07/01/2015 Blood Pressure 1: 146/80 Code: 8480-6 BMI: 30.0 Code: 34809-1 Heart Rate 1: 94 bpm Height: 5'10" SpO2: 98% Weight: 209 lbs 10/03/2014 Blood Pressure 1: 128/84 Code: 8480-6 BMI: 31.6 Code: 64980-0 Heart Rate 1: 72 bpm Height: 5'10" Weight: 220 lbs Functional Status No Functional Status data History of Present Illness Symptom Name Status Result Effective Date Notes Location both ears 03/27/2019 None Quality acute 03/27/2019 None Onset and Resolution sudden in onset 03/27/2019 None Triggers allergies 03/27/2019 None Onset of Symptom 4 weeks ago 03/27/2019 None Frequency of Episodes decreasing 03/27/2019 None Alleviating Factors medication 03/27/2019 None Alcohol Use does not drink any alcohol 03/15/2019 None Blood Glucose (self reported) don't know 03/15/2019 None Blood Pressure (self reported) high (140/90 or higher) 03/15/2019 None Cholesterol (self reported) don't know 03/15/2019 None Depression (last 6 months) almost never 03/15/2019 None Depression or Hopelessness almost never 03/15/2019 None Describe Your Health fair 03/15/2019 None Exercise Habits exercises _ days per week 03/15/2019 None Handling Stress usually lynn effectively 03/15/2019 None Hemaglobin A-1C (self reported) don't know 03/15/2019 None Interaction with Friends yes 03/15/2019 None Interests & Pleasure most of the time 03/15/2019 None Life Satisfaction satisfied 03/15/2019 None Motor Vehicle Safety always fastens seat belt: y 03/15/2019 None Smoking and Tobacco Use non smoker 03/15/2019 None Social & Emotional Support sometimes 03/15/2019 None Stress some of the time 03/15/2019 None Sun Exposure protects skin when outdoors: y 03/15/2019 None Aspirin Use no 03/15/2019 None Hours of Sleep 6 03/15/2019 None Nutrition servings of fried food / high fat foods per day: 1 03/15/2019 None Nutrition servings of high fiber / whole grain per day: 1 03/15/2019 None Nutrition servings of vegetables / fruit per day: 1 03/15/2019 None Location both ears 03/13/2019 None Quality acute 03/13/2019 None Onset and Resolution sudden in onset 03/13/2019 None Triggers allergies 03/13/2019 None Onset of Symptom 2 weeks ago 03/13/2019 None Location both ears 03/06/2019 None Quality acute 03/06/2019 None Onset and Resolution sudden in onset 03/06/2019 None Triggers allergies 03/06/2019 None sinus congestion Location frontal sinuses 08/24/2018 None sinus congestion Quality constant 08/24/2018 None sinus congestion Quality pressure 08/24/2018 None sinus congestion Onset and Resolution sudden in onset 08/24/2018 None sinus congestion Onset of Symptom 2 days ago 08/24/2018 None sinus congestion Frequency of Episodes daily 08/24/2018 None sore throat Location diffusely 08/24/2018 None sore throat Quality aching 08/24/2018 None sore throat Quality intermittent 08/24/2018 None sore throat Onset and Resolution sudden in onset 08/24/2018 None sore throat Onset of Symptom 2 days ago 08/24/2018 None sore throat Frequency of Episodes daily 08/24/2018 None Annual Medicare Wellness Exam Alcohol Use does not drink any alcohol 03/01/2018 None Annual Medicare Wellness Exam Aspirin Use no 03/01/2018 None Annual Medicare Wellness Exam Blood Glucose (self reported) don't know 03/01/2018 None Annual Medicare Wellness Exam Blood Pressure (self reported) low / normal (120/80) 03/01/2018 None Annual Medicare Wellness Exam Cholesterol (self reported) desireable (below 200) 03/01/2018 None Annual Medicare Wellness Exam Depression (last 6 months) almost never 03/01/2018 None Annual Medicare Wellness Exam Depression or Hopelessness almost never 03/01/2018 None Annual Medicare Wellness Exam Describe Your Health good 03/01/2018 None Annual Medicare Wellness Exam Exercise Habits does not exercise 03/01/2018 None Annual Medicare Wellness Exam Handling Stress usually lynn effectively 03/01/2018 None Annual Medicare Wellness Exam Hemaglobin A-1C (self reported) don't know 03/01/2018 None Annual Medicare Wellness Exam Hours of Sleep 8 03/01/2018 None Annual Medicare Wellness Exam Interaction with Friends yes 03/01/2018 None Annual Medicare Wellness Exam Interests & Pleasure some of the time 03/01/2018 None Annual Medicare Wellness Exam Life Satisfaction satisfied 03/01/2018 None Annual Medicare Wellness Exam Motor Vehicle Safety always fastens seat belt: y 03/01/2018 None Annual Medicare Wellness Exam Motor Vehicle Safety drives after drinking: jn 03/01/2018 None Annual Medicare Wellness Exam Motor Vehicle Safety rides with someone who has been drinking: n 03/01/2018 None Annual Medicare Wellness Exam Nutrition servings of fried food / high fat foods per day: 0 03/01/2018 None Annual Medicare Wellness Exam Nutrition servings of high fiber / whole grain per day: 2 03/01/2018 None Annual Medicare Wellness Exam Nutrition servings of vegetables / fruit per day: 2 03/01/2018 None Annual Medicare Wellness Exam Smoking and Tobacco Use non smoker 03/01/2018 None Annual Medicare Wellness Exam Social & Emotional Support sometimes 03/01/2018 None Annual Medicare Wellness Exam Stress some of the time 03/01/2018 None Annual Medicare Wellness Exam Sun Exposure protects skin when outdoors: y 03/01/2018 None sinus congestion Location frontal sinuses 12/30/2017 None sinus congestion Quality constant 12/30/2017 None sinus congestion Quality fullness 12/30/2017 None sinus congestion Quality pressure 12/30/2017 None sinus congestion Onset and Resolution sudden in onset 12/30/2017 None sinus congestion Onset of Symptom 3 days ago 12/30/2017 None cough Location in the throat 12/30/2017 None cough Quality dry 12/30/2017 None cough Onset and Resolution sudden in onset 12/30/2017 None bone pain Location diffusely 09/02/2017 joints bone pain Quality chronic 09/02/2017 None bone pain Onset and Resolution ongoing 09/02/2017 None bone pain Onset of Symptom _ months ago 09/02/2017 None bone pain Onset of Symptom _ years ago 09/02/2017 None bone pain Limitation on Activities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 10/03/2014 Instructions Comment Nasal spray- use twice daily, one spray per nostril twice daily, after 30 minutes, rinse out nose with saline spray.. Use opposite hand per nostril to spray in the nasal steroid allergy spray. . Sinusitis - Pt has chronic infection - pain in face, maxillary region, Pt informed to use decongestant, RX given to patient, sinus rinses also recommended. Call if symptoms do not show improvement. . Rheumatoid arthritis - chronic - continue with methotrexate, folate, prn prednisone, monitor symptoms and call if not improving. Fatigue - improving. flu shot in clinic today . Sinusitis - Pt has acute infection - pain in face, maxillary region, Pt informed to use decongestant, RX given to patient, sinus rinses also recommended. Call if symptoms do not show improvement. Allergies - chronic - recommended pt to use allergy medication as prescribed. Pt has been counseled as to the appropriate use of the medication. Pt to call if allergy symptoms are not controlled with the medication. If using nasal spray, instructions as follows: Nasal spray- use twice daily, one spray per nostril twice daily, after 30 minutes, rinse out nose with saline spray.. Use opposite hand per nostril to spray in the nasal steroid allergy spray. Nasal spray- use twice daily, one spray per nostril twice daily, after 30 minutes, rinse out nose with saline spray.. Use opposite hand per nostril to spray in the nasal steroid allergy spray. . Sinusitis - Pt has acute infection - pain in face, maxillary region, Pt informed to use decongestant, RX given to patient, sinus rinses also recommended. Call if symptoms do not show improvement. . RA - call placed to Dr. Thornton's office - recommended pt to have her infusion - they are to call the patient to set up the next infusion of symphony. Continue off work for further strengthening. . Welcome to Medicare Exam - today we discussed the patients past history, immunizations, preventative exams/evaluations - colonoscopy, fecal occult blood testing, routine labs for renal function, glucose, cholesterol, osteoporosis evaluations, cardiovascular testing and cancer screenings. We have also discussed mental health and the signs/symptoms of depression. The patient was advised of home safety evaluations and the need to make sure that as the aging process continues, we need to be aware of different ways to make the home a safer place to reside. The patient has also been counseled that exercise is necessary - and of utmost importance as we age to help decrease fall risk and to maintain independence in the home. auto insurance . I have recommended that millicent be off of work for the next two weeks - she should have improvement in her symptoms of consussion - if this does not improve, we may need repeat ct scan or mri of the head. auto insurance . I have recommended that millicent be off of work for the next two weeks - she should have improvement in her symptoms of consussion - if this does not improve, we may need repeat ct scan or mri of the head. . Sinusitis - Pt has acute infection - pain in face, maxillary region, Pt informed to use decongestant, RX given to patient, sinus rinses also recommended. Call if symptoms do not show improvement. Allergies - chronic - recommended pt to use allergy medication as prescribed. Pt has been counseled as to the appropriate use of the medication. Pt to call if allergy symptoms are not controlled with the medication. If using nasal spray, instructions as follows: Nasal spray- use twice daily, one spray per nostril twice daily, after 30 minutes, rinse out nose with saline spray.. Use opposite hand per nostril to spray in the nasal steroid allergy spray. . Sinusitis - Pt has acute infection - pain in face, maxillary region, Pt informed to use decongestant, RX given to patient, sinus rinses also recommended. Call if symptoms do not show improvement. Allergies - chronic - recommended pt to use allergy medication as prescribed. Pt has been counseled as to the appropriate use of the medication. Pt to call if allergy symptoms are not controlled with the medication. If using nasal spray, instructions as follows: Nasal spray- use twice daily, one spray per nostril twice daily, after 30 minutes, rinse out nose with saline spray.. Use opposite hand per nostril to spray in the nasal steroid allergy spray. Otitis Media - discussed the diagnosis with the patient, script sent electronically to the pharmacy for treatment of the infection. The disease course was discussed and the need to notify the clinic if symptoms do not improve or if they acutely worsen. Otitis Externa - pt given RX for antibiotic drops for the use in pt's affected ear. Pt to call if symptoms are not improving or if symptoms worsen acutely. . Right shoulder pain/bursitis-follow up from [facility]-symptoms have significantly improved-finish anti inflammatories and abx as directed-call if symptoms do not completely resolve or if any worse. Patient verbalized understanding of plan. . RA - restart the methotrexate - pt to make follow up appt with Dr. Thornton. Weakness - referral to physical therapy - RE strengthening. Candidal esophagitis - rx for diflucan . RA - Bilateral hand swelling - will send RX to pharmacy - pt would like to be referred to Dr. Thornton for a second opinion and to establish with him for her RA. Pt is to notify clinic if symptoms do not improve, if they worsen, or with any questions or concerns. . RA - Bilateral hand swelling - will send RX to pharmacy - pt would like to be referred to Dr. Thornton for a second opinion and to establish with him for her RA. Pt is to notify clinic if symptoms do not improve, if they worsen, or with any questions or concerns. . Edema - pt states that she has not been to a caregiver assisted living or had an ECHO in the past - pt will think about referral and let us know what she decides - pt has been advised to elevate legs to prevent dependent edema, compression has been recommended to help to naturally decrease peripheral edema. Diuretic use has been discussed and pt has been instructed in appropriate use of such medication as necessary to further attempt to reduce peripheral edema. . Shingles - Herpes Zoster - acute in onset - pt started on acyclovir and instructed to call if symptoms worsen or if the pt is concerned about the symptoms. Pt has been advised to avoid contact with persons who may be , or infants, or immunocompromised individuals. Pt has been instructed that shingles will continue to break out and eventually scab over a two week period, until all of the vesicles are scabbed, the pt is to be considered contagious. . Medicare Exam - today we discussed the patients past history, immunizations, preventative exams/evaluations - colonoscopy, fecal occult blood testing, routine labs for renal function, glucose, cholesterol, osteoporosis evaluations, cardiovascular testing and cancer screenings. We have also discussed mental health and the signs/symptoms of depression. The patient was advised of home safety evaluations and the need to make sure that as the aging process continues, we need to be aware of different ways to make the home a safer place to reside. The patient has also been counseled that exercise is necessary - and of utmost importance as we age to help decrease fall risk and to maintain independence in the home. Today we discussed the need for the patient to create paperwork for Advanced directives as well as for the patient to provide this office with a copy of her DOPA paperwork for health care surrogate. . Rheumatoid arthritis - improved on systemic medication - injections of immunosuppresive therapy from Dr. Thornton. Recent pneumonia - Pt was off of work until 06/30/17 - but was not scheduled to start work until 07/05/17. She has severe RA and was not able to take her RA medication due to her infection with pneumonia - I had recommended patient to be off of work until she was able to get her RA injections so that she could be mobile and allow time for her to have further healing. When she was seen by the RA specialist in [place] - he determined that she still had pneumonia and thus needed more antibiotics and further healing prior to starting back to work. . RA-symptoms uncontrolled-will start prednisone taper-recommend patient f/u with hematology specialist sooner to re-evaluate maintenance medications- RX for hydrocodone for break though pain written and instructed on use. Instructed patient to call if symptoms do no improve, if worsen, or new symptoms develop. Patient verbalized understanding of plan. . Pain in multiple joints - pt states that this has been ongoing for some time. States that her sister has RA, and she is very worried that she might have it to. Will check labs, if positive will refer. Pt is to notify clinic if symptoms do not improve, or with any concerns. . Pain in multiple joints - pt states that this has been ongoing for some time. States that her sister has RA, and she is very worried that she might have it to. Will check labs, if positive will refer. Pt is to notify clinic if symptoms do not improve, or with any concerns. JASMINA OR ZYRTEC START ABX IF SYMPTOMS PERSIST OVER THE WEEKEND . URI - Pt advised to increase fluids, vitamin C. Discussed natural and expected course of this diagnosis and need to alert me if symptoms do not follow expected course, or if any worse. RX sent to patient's pharmacy.
--- OUTSIDE RECORDS SUMMARY | 2019-04-29 19:41 | XMS REPORT | CCD ---
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 Patient Education: Patient Medication Summary Completed 10/03/2014 Instructions Comment . Rheumatoid arthritis - improved on systemic [...] was seen by the RA specialist in [place] - he determined that she still had pneumonia and thus needed more antibiotics and further healing prior to starting back to work. . 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 . Shingles - Herpes Zoster - acute [...] pt is to be considered contagious. . Edema - pt states that she has not been to a convalescent sitter or had an ECHO in the past [...] further attempt to reduce peripheral edema. . RA - Bilateral hand swelling - [...] any questions or concerns. . RA - restart the methotrexate - pt to make follow up appt with Dr. Thornton. Weakness - referral to physical therapy - RE strengthening. Candidal esophagitis - rx for diflucan . Right shoulder pain/bursitis-follow up from [facility]-symptoms have significantly improved-finish anti inflammatories and abx as directed-call if symptoms do not completely resolve or if any worse. Patient verbalized understanding of plan. . Sinusitis - Pt has acute infection [...] improving or if symptoms worsen acutely. . Sinusitis - Pt has acute infection [...] in the nasal steroid allergy spray. . Rheumatoid arthritis - chronic - continue with methotrexate, folate, prn prednisone, monitor symptoms and call if not improving. Fatigue - improving. flu shot in clinic today auto insurance . I have recommended that [...] scan or mri of the head. . Welcome to Medicare Exam - today [...] and to maintain independence in the home. . RA - call placed to Dr. Thornton's office - recommended pt to have her infusion - they are to call the patient to set up the next infusion of symphony. Continue off work for further strengthening. . Sinusitis - Pt has acute infection [...] spray in the nasal steroid allergy spray. JASMINA OR ZYRTEC START ABX IF SYMPTOMS PERSIST OVER THE WEEKEND . URI - Pt advised to increase fluids, vitamin C. Discussed natural and expected course of this diagnosis and need to alert me if symptoms do not follow expected course, or if any worse. RX sent to patient's pharmacy. Nasal spray- use twice daily, one spray [...] if symptoms do not show improvement. . Pain in multiple joints - pt [...] not improve, or with any concerns. . 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 Instructed patient to call if symptoms do no improve, if worsen, or new symptoms develop. Patient verbalized understanding of plan.
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
--- OUTSIDE RECORDS SUMMARY | 2019-04-29 19:45 | XMS REPORT | CCD ---
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 - Herpes Zoster - acute [...] pt is to be considered contagious. . Pain in multiple joints - pt [...] do not improve, or with any concerns. Nasal spray- use twice daily, one spray [...] Call if symptoms do not show improvement. JASMINA OR ZYRTEC START ABX IF SYMPTOMS PERSIST OVER THE WEEKEND . URI - Pt advised to increase fluids, vitamin C. Discussed natural and expected course of this diagnosis and need to alert me if symptoms do not follow expected course, or if any worse. RX sent to patient's pharmacy. . Sinusitis - Pt has acute infection [...] in the nasal steroid allergy spray. . RA - call placed to Dr. [...] scan or mri of the head. . Rheumatoid arthritis - chronic - continue [...] acutely. . Right shoulder pain/bursitis-follow up from [facility]-symptoms have significantly improved-finish anti inflammatories [...] that she has not been to a therapeutic program worker or had an ECHO in the past [...] further attempt to reduce peripheral edema. . RA-symptoms uncontrolled-will start prednisone taper-recommend patient f/u with outcomes specialist sooner to re-evaluate maintenance medications- RX for hydrocodone for break though pain written and instructed on use. Instructed patient to call if symptoms do no improve, if worsen, or new symptoms develop. Patient verbalized understanding of plan.
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
[2019-04-29] MEDS: SENNA W/DOCUSATE (SENOKOT S) TABLET PO SCH (20:27)
[2019-04-29] MEDS: ATORVASTATIN 80 MG (LIPITOR) TABLET PO SCH (20:28)
[2019-04-29] MEDS: ACETAMINOPHEN 500 MG TAB (TYLENOL) PO PRN (20:28)
[2019-04-29] MEDS: CATHETER FLUSH 10 ML SYR IV SCH (20:29)
[2019-04-30] VITALS: BP 155/117
[2019-04-30 04:00] VITALS: BP 139/79
[2019-04-30] MEDS: CATHETER FLUSH 10 ML SYR IV SCH ×4 (05:31→20:31)
[2019-04-30 06:18] LABS: HEMOGLOBIN 12.3 G/DL (11.5-16.0); MEAN PLATELET VOLUME 9.9 FL (7.4-10.4); RED CELL DISTRIBUTION WIDTH 14.4 % (10.0-14.5); WHITE BLOOD COUNT 7.5 10^3/uL (4.3-11.0)
[2019-04-30 06:39] LABS: ALANINE AMINOTRANSFERASE 12 U/L (0-55); ALBUMIN 3.6 GM/DL (3.2-4.5); ALKALINE PHOSPHATASE 63 U/L (40-136); BILIRUBIN,TOTAL 0.4 MG/DL (0.1-1.0); BUN/CREATININE RATIO 7; CARBON DIOXIDE 24 MMOL/L (21-32); CHLORIDE 108 MMOL/L (98-107); CHOLESTEROL 226 MG/DL (< 200); CREATININE SERUM 0.88 MG/DL (0.60-1.30); GFR ESTIMATED > 60; GLUCOSE 96 MG/DL (70-105); HDL CHOLESTEROL 73 MG/DL (40-60); POTASSIUM 3.5 MMOL/L (3.6-5.0); SODIUM 143 MMOL/L (135-145); TOTAL PROTEIN 6.4 GM/DL (6.4-8.2); TRIGLYCERIDES 88 MG/DL (<150); VLDL CHOLESTEROL 18 MG/DL (5-40)
[2019-04-30] MEDS: ACETAMINOPHEN 500 MG TAB (TYLENOL) PO PRN ×2 (07:23→13:31)
[2019-04-30] MEDS: ASPIRIN E.C. 325 MG (ECOTRIN) TABLET PO SCH (07:24)
[2019-04-30] MEDS: SENNA W/DOCUSATE (SENOKOT S) TABLET PO SCH ×2 (07:25→20:30)
[2019-04-30 07:33] VITALS: BP 167/79
[2019-04-30 11:14] VITALS: BP 157/78
--- NOTE | 2019-04-30 11:39 | History & Physical-Hospitalist ---
History of Present Illness HPI/Chief Complaint Chief complaint: CVA versus TIA History of present illness: This is a 69-year-old white female with a past medical history of arthritis and high cholesterol who presented to the ER several hours after noticing her speech was slurred and she really couldn't get her shoe on and had difficulty identifying objects when asked what they were. Apparently she was found to have negative stroke workup and stroke score was 3 not a TPA candidate so she was admitted for stratification with cardiology consultation and stroke protocol but since admission she now feels normal without any deficits having no new difficulties. She is not having any dysphasia she is able to walk and has no weakness on either side of her body. She has no facial droop now. She is not slurring her words she is talking clearly and has no problems with her mentation. I have placed high-dose statin therapy along with aspirin per protocol. MRI will be scheduled for tomorrow. Source: patient Exam Limitations: clinical condition Date Seen 04/30/19 Time Seen by a Provider: 12:00 Attending Physician Mary Moore Holly A MD Referring Physician Date of Admission Apr 29, 2019 at 15:55 Home Medications & Allergies Home Medications Reviewed patient Home Medication Reconciliation performed by pharmacy medication reconciliations color technician and/or nursing. Patients Allergies have been reviewed. Allergies Allergies Coded Allergies No Known Drug Allergies (Dmrtypwvpg10/6/14) Past Mlrlsxm-Jwmpmi-Jjckls Hx Past Med/Social Hx: Reviewed Nursing Past Med/Soc Hx, Reviewed and Corrections made Patient Social History Marrital Status: single Employed/Student: retired Alcohol Use: Denies Use Recreational Drug Use: No Smoking Status: Never a Smoker 2nd Hand Smoke Exposure: No Physical Abuse Screen: No Sexual Abuse: No Recent Foreign Travel: No Contact w/other who traveled: No Recent Hopitalizations: No Recent Infectious Disease Expo: No Immunizations Up To Date Tetanus Booster (TDap): Unknown Date of Pneumonia Vaccine: Oct 06, 2018 Seasonal Allergies Seasonal Allergies: No Past Medical History Surgeries: Abdominal (umbilical hernia) Cardiac: High Cholesterol Reproductive: No Sexually Transmitted Disease: No HIV/AIDS: No Female Reproductive Disorders: Denies Musculoskeletal: Arthritis, Rheumatoid Arthritis Loss of Vision: Denies Hearing Impairment: Denies History of Blood Disorders: No Adverse Reaction to Blood Lopez: No Family History Cardiovascular disease 19 FATHER FH: breast cancer 19 MOTHER FH: non-Hodgkin's lymphoma G8 BROTHER FHx: rheumatoid arthritis G8 SISTER Heart murmur Heart Disease, Cancer, Other Conditions/Hx Review of Systems Constitutional: see HPI, weakness EENTM: no symptoms reported Respiratory: no symptoms reported Cardiovascular: no symptoms reported Gastrointestinal: no symptoms reported Genitourinary: no symptoms reported Musculoskeletal: no symptoms reported Skin: no symptoms reported Psychiatric/Neurological: Paresthesia, Weakness All Other Systems Reviewed Negative Unless Noted: Yes Physical Exam Physical Exam Vital Signs Vital Signs - First Documented 04/29/19 12:36 Temp 98.0 Pulse 101 Resp 16 B/P (MAP) 194/104 (134) Pulse Ox 98 O2 Delivery Room Air Capillary Refill : Less Than 3 Seconds Height, Weight, BMI Height: 5'10.00" Weight: 210lbs. 6.4oz. [id number]; 30.2 BMI Method:Stated General Appearance: No Apparent Distress, WD/WN, Chronically ill Eyes: Right Eye Normal Inspection, Right Eye PERRL HEENT: PERRL/EOMI, TMs Normal, Normal ENT Inspection, Pharynx Normal, Moist Mucous Membranes Neck: Full Range of Motion, Normal Inspection, Non Tender Respiratory: Chest Non Tender, Lungs Clear, Normal Breath Sounds, No Accessory Muscle Use, No Respiratory Distress Cardiovascular: Regular Rate, Rhythm, No Edema, No Gallop, No JVD, No Murmur, Normal Peripheral Pulses Gastrointestinal: Normal Bowel Sounds, No Organomegaly, No Pulsatile Mass, Non Tender, Soft Back: Normal Inspection, No CVA Tenderness, No Vertebral Tenderness Extremity: Normal Capillary Refill, Normal Inspection, Normal Range of Motion, Non Tender, No Calf Tenderness, No Pedal Edema Neurologic/Psychiatric: Alert, Oriented x3, No Motor/Sensory Deficits, Normal 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 Assessment/Plan Admission Diagnosis Assessment: CVA versus TIA with slurred speech now resolved Hyperlipidemia Rheumatoid arthritis Early UTI Plan: MRI tomorrow Carotid ultrasound Cardiology consultation is appreciated Monitor closely Statin ASA Rocephin Admission Status: Inpatient Order (span 2 midnights) Reason for Inpatient Admission: CVA will need additional workup Diagnosis/Problems Diagnosis/Problems (1) Weakness on right side of face Status: Resolved Resolution Date/Time: 04/30/19 @ 13:25 (2) Expressive aphasia Status: Resolved Resolution Date/Time: 04/30/19 @ 13:25 (3) Urinary tract infection Status: Acute Qualifiers: Urinary tract infection type: site unspecified Hematuria presence: without hematuria Qualified Codes: N39.0 - Urinary tract infection, site not specified Clinical Quality Measures DVT/VTE Risk/Contraindication: Risk Factor Score Per Nursin RFS Level Per Nursing on Admit: 3=High MARY MOORE DO Apr 30, 2019 11:39
[2019-04-30] MEDS ORDERED: amLODIPine 5 MG (NORVASC) TAB PO NR (11:45)
[2019-04-30] MEDS ORDERED: KCL 10 MEQ TAB (MICRO K) PO NR (13:00)
--- NOTE | 2019-04-30 15:29 | Consultation-Cardiology ---
HPI-Cardiology Cardiology Consultation: Date of Consultation 04/30/19 Time Seen by a Provider: 14:45 Date of Admission Attending Physician Mary Moore DO Admitting Physician Mecca Kong MD Consulting Physician KIANA JACOBS MD, MA, FACP, FACC, [facility], CCDS Physician requesting consult: Dr Moore HPI: Chief Complaint: Reason for consultation: Transient slurring of speech and impairment of motor coordination on 04/29/19 HPI: 69 yo woman admitted to Dr Moore on 04/29/19 with about an hour of slurred speech and difficulty with fine motor skills on both sides. These have since resolved and she currently feels back to usual baseline. No cp or palp or syncope or shortness of breath or leg swelling or recent fever or chills. Review of Systems-Cardiology Review of Systems Constitutional: No malaise, No tiredness, No weight loss, No weight gain Eyes: No vision change Ears/Nose/Throat: No ear discharge, No nasal drainage, No recent hearing loss Respiratory: As described under HPI Cardiovascular: As described under HPI Gastrointestinal: No constipation, No diarrhea, No nausea, No vomiting Genitourinary: No dysuria, No hematuria, No urine frequency changes : No Musculoskeletal: back pain (chronic), joint pain (chronic) Skin: No rash, No ulcerations Psychiatric/Neurological: As described under HPI Hematologic: No bleeding abnormalities All Other Systems Reviewed Negative Unless Noted: Yes SJV-Ioerse-Rksiwk Hx Patient Social History Marrital Status: single Employed/Student: retired Alcohol Use: Denies Use Recreational Drug Use: No Smoking Status: Never a Smoker 2nd Hand Smoke Exposure: No Recent Foreign Travel: No Recent Infectious Disease Expo: No Physical Abuse Screen: No Sexual Abuse: No Immunizations Up To Date Tetanus Booster (TDap): Unknown Date of Pneumonia Vaccine: Oct 06, 2018 Past Medical History PMH As described under Assessment. Family Medical History Family History: Cardiovascular disease 19 FATHER FH: breast cancer 19 MOTHER FH: non-Hodgkin's lymphoma G8 BROTHER FHx: rheumatoid arthritis G8 SISTER Heart murmur Allergies and Home Medications Allergies Coded Allergies: No Known Drug Allergies (Unverified , 09/13/14) Home Medications Ascorbic Acid Unknown Strength Tablet.er, Unknown Dose PO DAILY, (Reported) Cholecalciferol (Vitamin D3) 1,000 Unit Capsule, 2,000 UNIT PO DAILY, (Reported) TAKES 2 (1,000 UNITS) CAPSULES Folic Acid 1 Mg Tablet, 1 MG PO DAILY, (Reported) Methotrexate Tablet 2.5 Mg Tablet, 10 MG PO WEDNESDAY, (Reported) Nabumetone 750 Mg Tablet, 1,500 MG PO DAILY, (Reported) TAKES 2 (750MG) TABLETS [Symphoni] Unknown Strength , Unknown Dose IV UD, (Reported) Patient Home Medication List Home Medication List Reviewed: Yes Physical Exam-Cardiology Physical Exam Vital Signs/I&O 04/30/19 04/30/19 04/30/19 04/30/19 04:00 07:00 07:33 08:00 Temp 98.5 97.8 Pulse 71 57 64 Resp 18 18 B/P (MAP) 139/79 (99) 167/79 (108) Pulse Ox 96 97 98 O2 Delivery Room Air Room Air Room Air 04/30/19 04/30/19 11:14 12:48 Temp 98.6 Pulse 75 65 Resp 18 B/P (MAP) 157/78 (104) Pulse Ox 95 O2 Delivery Room Air 04/30/19 00:00 Intake Total 550 ml Output Total 850 ml Balance -300 ml Capillary Refill : Less Than 3 Seconds Constitutional: AAO x 3, well-developed, well-nourished HEENT: EOMI, hearing is well preserved; No xanthelasmas are seen Neck: No carotid bruit; carotid pulses are 2 + bilaterally, with good upstrokes Respiratory: No accessory muscle use; lungs clear to percussion, lungs clear to auscultation Cardiovascular: regular rate-rhythm, S1 and S2, systolic murmur (2/6 SUJEY at card base) Gastrointestinal: No tender; soft; No guarding, No rebound; audible bowel sounds Extremities: No clubbing, No cyanosis, No significant edema Neurologic/Psychiatric: other (answers questions appropriately, moves all limbs equally, gait normal) Skin: No rash on exposed areas, No ulcerations on exposed areas Data Review Labs Laboratory Tests 04/30/19 05:35: White Blood Count 7.5, Red Blood Count 3.85L, Hemoglobin 12.3, Hematocrit 37, Mean Corpuscular Volume 96, Mean Corpuscular Hemoglobin 32, Mean Corpuscular Hemoglobin Concent 33, Red Cell Distribution Width 14.4, Platelet Count 295, M francisca Platelet Volume 9.9, Sodium Level 143, Potassium Level 3.5L, Chloride Level 108H, Carbon Dioxide Level 24, Anion Gap 11, Blood Urea Nitrogen 6L, Creatinine 0.88, Estimat Glomerular Filtration Rate > 60, BUN/Creatinine Ratio 7, Glucose Level 96, Calcium Level 9.0, Corrected Calcium 9.3, Total Bilirubin 0.4, Aspartate Amino Transf (AST/SGOT) 15, Alanine Aminotransferase (ALT/SGPT) 12, Alkaline Phosphatase 63, Total Protein 6.4, Albumin 3.6, Triglycerides Level 88, Cholesterol Level 226H, LDL Cholesterol Direct 139H, VLDL Cholesterol 18, HDL Cholesterol 73H Laboratory Tests 04/29/19 12:38 04/30/19 05:35 A/P-Cardiology Assessment/Admission Diagnosis TIA on 04/29/19 (slurred speech and impaired motor coordination for an hour) Hypertension Elevated BMI of approx 30 UTI Echo of 04/30/19: LVEF 65-70%, AoV sclerosis w/o stenosis, RVSP 30 mmHg Discussion and Recomendations * Treat with ASA and statin * Carotid u/s recommended * I had a detailed discussion with her regarding her event yesterday Clinical Quality Measures DVT/VTE Risk/Contraindication: Risk Factor Score Per Nursin RFS Level Per Nursing on Admit: 3=High KIANA JACOBS MD [facility] Apr 30, 2019 15:29
[2019-04-30] MEDS: cefTRIAXone 1,000 MG/SWFI 10 ML IV PUSH IV SCH ×2 (15:49)
[2019-04-30 16:35] VITALS: BP 162/101
[2019-04-30] MEDS: ATORVASTATIN 80 MG (LIPITOR) TABLET PO SCH (20:30)
[2019-04-30 20:43] VITALS: BP 132/72
[2019-05-01] VITALS (7 sets, daily range): BP systolic 125–171; BP diastolic 65–95
[2019-05-01] MEDS: KCL 10 MEQ TAB (MICRO K) PO SCH (05:53)
[2019-05-01] MEDS: SENNA W/DOCUSATE (SENOKOT S) TABLET PO SCH ×2 (08:53→19:54)
[2019-05-01] MEDS: amLODIPine 5 MG (NORVASC) TAB PO SCH (08:53)
[2019-05-01] MEDS: ASPIRIN E.C. 325 MG (ECOTRIN) TABLET PO SCH (08:53)
--- NOTE | 2019-05-01 10:07 | Physical Therapy Evaluation ---
PT Evaluation-General Medical Diagnosis Admission Date Apr 29, 2019 at 15:55 Medical Diagnosis: right facial weakness/expressive aphasia/UTI Onset Date: Apr 29, 2019 Therapy Diagnosis Therapy Diagnosis: debility Height/Weight Height (Feet): 5 Height (Inches): 10.00 Weight (Pounds): 210 Weight (Ounces): 6.4 Precautions Precautions/Isolations: Standard Precautions Referral Physician: Oscar Reason for Referral: Evaluation/Treatment Medical History Pertinent Medical History: Arthritis, Rheumatoid Arthritis Current History ED secondary to confusion Reviewed History: Yes Social History Home: Single Level Current Living Status: Alone Entry Into Home: Stairs With Railing PT Steps Into Home: 4 Prior/Core FIM Prior Level of Function Therapy Code Descriptions/Definitions Functional Mcintosh Measure: 0=Not Assessed/NA 4=Minimal Assistance 1=Total Assistance 5=Supervision or Setup 2=Maximal Assistance 6=Modified Mcintosh 3=Moderate Assistance 7=Complete Mcintosh Therapy Quality Codes: 6 Independent with activity with or without an assistive device 5 Patient requires set up or clean up by helper. Patient completes activity by themselves 4 Supervision or touching assist (CGA). Wallis provide cues , steadying assist 3 The helper provides less than half the effort to complete the activity 2 The helper provides more than half the effort to complete the activity 1 Dependent. The helper does all the effort to complete an activity 7 Patient refused to complete or attempt activity 9 The patient did not perform the activity before the current illness or injury 88 Not attempted due to Medical conditions or safety concerns Functional Abilities and Goals: Independent: Patient completed the activities by him/herself, with or without an assistive device, with no assistance from a helper. Needed Some Help: Patient needed partial assistance from another person to complete activities. Dependent: A helper completed the activities for the patient. Unknown: Not Applicable: Bed Mobility: 7 Transfers (B,C,W/C) (FIM): 7 Gait: 7 Stairs: 7 Indoor Mobility (Ambulation): Independent Stairs: Independent Prior Devices Use: None PT Evaluation-Current Subjective Patient agrees to PT. Family present. Objective Patient Orientation: Normal For Age Problem Solving: Good ROM/Strength ROM Lower Extremities bilateral LE WFL Strength Lower Extremities 4/5 grossly bilateral LE Integumentary/Posture Integumentary refer to nursing notes Bowel Incontinence: No Bladder Incontinence: No Posture slight trunk flexed posture due to arthritis Neuromuscular (Tone, Coordination, Reflexes) grossly intact Sensory Vision: Wears Glasses Hearing: Functional Sensation Right Lower Extremit: Intact Sensation Left Lower Extremity: Intact Transfers Therapy Code Descriptions/Definitions Functional Mcintosh Measure: 0=Not Assessed/NA 4=Minimal Assistance 1=Total Assistance 5=Supervision or Setup 2=Maximal Assistance 6=Modified Mcintosh 3=Moderate Assistance 7=Complete Mcintosh Transfers (B, C, W/C) (FIM): 7 Scootin Rollin Supine to/from Sit: 7 Sit to/from Stand: 7 Gait Mode of Locomotion: Walk Anticipated Mode of Locomotion: Walk Gait (FIM): 7 Distance (FIM): 3=150 ft Distance: 600' Gait Level of Assist: 7 Gait Assistive Device: None Comments/Gait Description WBOS, functional gait sequence Stairs Stairs (FIM): 2 #of Steps: 4 Level of Assist: 6 Balance Sitting Static: Normal Sitting Dynamic: Normal Standing Static: Normal Standing Dynamic: Normal Assessment/Needs 69 y.o. female, is currently at [facility] with all gross motor skills and does not require skilled therapy intervention. PT educated and instructed patient on Wellness Program offered at this hospital to encourage a health lifestyle. Patient and family voice understanding and agree. Rehab Potential: Fair Post Rehab Potential-Barriers: compliance PT Plan Treatment/Plan Treatment Plan: Discontinue PT, goals met Treatment Plan: Other Treatment Duration: May 01, 2019 Frequency: 1 time per week Estimated Hrs Per Day: .5 hour per day Patient and/or Family Agrees t: Yes Discharge Recommendations Therapy D/C Recommendations: Home Independently Time/GCodes Time In: 830 Time Out: 850 Total Billed Treatment Time: 20 [facility] SIMEON MCINTOSH PT May 01, 2019 10:07
--- NOTE | 2019-05-01 10:30 | Progress Note-Cardiology ---
Cardiology SOAP Progress Note Subjective: Sitting up in a chair at the bedside. Denies any c/o CP, palpitations, syncope or near syncope. Sisters x 2 at the bedside (one from [place] and one from [place]). They are reporting concerns with episodes of confusion which they feel have been present off and on for approx the last year. They, as well as the patient voice concern she has been having TIA's for at least a year. They report their father had strokes and was on coumadin starting in his early 60's. They report she lives at home alone with no family in the area and they are concerned with self care ability. Objective: I&O/Vital Signs 05/01/19 05/01/19 05/01/19 05/01/19 07:00 08:00 08:00 12:00 Temp 98.0 98.4 Pulse 76 78 68 Resp 18 18 B/P (MAP) 171/95 (120) 165/84 (111) Pulse Ox 98 97 O2 Delivery Room Air Room Air Room Air 05/01/19 05/01/19 13:00 16:50 Temp 98.5 Pulse 87 69 Resp 18 B/P (MAP) 135/85 (102) Pulse Ox 98 O2 Delivery Room Air 05/01/19 00:00 Intake Total 1400 ml Output Total 1500 ml Balance -100 ml Weight (Pounds): 210 Weight (Ounces): 6.4 Weight (Calculated Kilograms): 95.359569 Constitutional: AAO x 3, well-developed, well-nourished Respiratory: No accessory muscle use; lungs clear to percussion, lungs clear to auscultation Cardiovascular: regular rate-rhythm, S1 and S2, systolic murmur (2/6 SUJEY at card base) Gastrointestional: No tender; soft; No guarding, No rebound; audible bowel sounds Extremities: No clubbing, No cyanosis, No significant edema Neurologic/Psychiatric: other (answers questions appropriately, moves all limbs equally, gait normal) Skin: No rash on exposed areas, No ulcerations on exposed areas Results/Procedures: Labs Microbiology 04/29/19 Urine Culture - Final, Complete 3 or more isolates Laboratory Tests 04/30/19 05:35 A/P: Assessment: Suspected TIA on 04/29/19 (slurred speech and impaired motor coordination for an hour) but no evidence of such on MRI of 05/01/19 Hypertension Elevated BMI of approx 30 Suspected UTI, managed by the [facility] Echo of 04/30/19: LVEF 65-70%, AoV sclerosis w/o stenosis, RVSP 30 mmHg There is no hemodynamically significant stenosis of the carotid systems. Both vertebral arteries were opacified and the left vertebral artery is dominant per CTA of the head and neck on 04-29-19 Report family h/o CVA with arrhythmia - father in his 60's Plan: * Continue with ASA and statin * Carotid u/s recommended * Dr. Cantu had a detailed discussion with her regarding her event * She reports recent sleep study * May consider implant of ILR * Sisters x2 at the bedside with extensive questions. They verbalize concern with her ability to take care of herself at home. Social service consult Physician Assessment Physician Assessment No cp or palp or syncope or shortness of breath Lungs: good bilat air entry Cor: reg Ext: no /c/c/e A&R * As documented in our note above that I updated (italics) and as noted below * Consider ILR implantation to eval of any PAF * I had a long and detailed discussion with the patient and two of her sisters * She has not decided on ILR * We recommend carotid eval REUBEN LOVE May 01, 2019 10:30 KIANA CANTU MD FACP FAC CCDS May 01, 2019 18:08
--- NOTE | 2019-05-01 12:03 | Diagnostic Imaging Report ---
PROCEDURE: MR imaging of the brain without contrast. TECHNIQUE: Multiplanar, multisequence MR imaging of the brain was performed without contrast. INDICATION: Possible stroke. Patient had tPA 24 hours ago. The ventricular size is stable. There is no diffusion restriction identified to suggest acute ischemia. The normal expected flow-voids within the carotid siphons are seen. There is no midline shift. No acute intra-axial or extra-axial hemorrhage is seen. Corpus callosum is unremarkable. The sella and parasellar structures are unremarkable. IMPRESSION: Unremarkable noncontrast MRI of the brain. No acute infarct or acute intracranial hemorrhage is detected. Dictated by: Dictated on workstation # [id number]
--- NOTE | 2019-05-01 12:46 | Progress Note (SOAP) ---
Subjective Time Seen by a Provider: 12:44 Subjective/Events-last exam Improving. Patient still has a little confusion according to the sisters. A state patient lives alone. To observe patient one more day. MRI negative of head Objective Exam Vital Signs Date Time Temp Pulse Resp B/P (MAP) Pulse Ox O2 Delivery O2 Flow Rate FiO2 05/01/19 08:00 98.0 78 18 171/95 (120) 98 Room Air 05/01/19 08:00 Room Air 05/01/19 07:00 76 05/01/19 04:00 97.7 75 20 135/74 (94) 95 Room Air 05/01/19 01:00 73 05/01/19 00:00 98.4 67 20 130/65 (86) 94 Room Air 04/30/19 20:43 98.2 78 18 132/72 (92) 98 Room Air 04/30/19 20:05 Room Air 04/30/19 19:00 77 04/30/19 16:35 98.2 71 20 162/101 (121) 96 Room Air 04/30/19 12:48 65 I & O 05/01/19 07:00 Intake Total 1500 ml Output Total 1800 ml Balance -300 ml Capillary Refill : Less Than 3 Seconds General Appearance: No Apparent Distress, WD/WN Neck: Full Range of Motion, Normal Inspection Respiratory: Chest Non Tender, No Accessory Muscle Use, No Respiratory Distress Cardiovascular: Regular Rate, Rhythm, No Murmur Gastrointestinal: non tender, soft Results Lab Microbiology 04/29/19 Urine Culture - Final, Complete 3 or more isolates Assessment/Plan Assessment/Plan Assess & Plan/Chief Complaint Right facial weakness. Expressive a fascia resolving. Confusion resolving . Hyperlipidemia. Plan to discharge tomorrow Clinical Quality Measures DVT/VTE Risk/Contraindication: Risk Factor Score Per Nursin RFS Level Per Nursing on Admit: 3=High AMELIA PALUMBO DO May 01, 2019 12:46
--- NOTE | 2019-05-01 13:17 | NUR ---
IRF Evaluation Order received to evaluate patient for the ARU. According to PT Evaluation, patient is ambulating (600ft, no AD) with independence; therefore, the patient does not require intensive therapies, at this time. Thank you for this referral.
--- NOTE | 2019-05-01 13:36 | Occupational Therapy Eval ---
OT Evaluation-General/PLF Medical Diagnosis Admission Date Apr 29, 2019 at 15:55 Medical Diagnosis: right facial weakness/expressive aphasia/UTI Onset Date: Apr 29, 2019 Therapy Diagnosis Therapy Diagnosis: impaired ADLs and mobility Height/Weight Height (Feet): 5 Height (Inches): 10.00 Weight (Pounds): 210 Weight (Ounces): 6.4 Precautions Precautions/Isolations: Fall Prevention, Standard Precautions Safety Interventions: None Weight Bear Status Weight Bearing Restriction: Weight Bearing/Tolerated Referral Physician: Oscar Referral Reason: Activity Tolerance, Self Care, Evaluation/Treatment, Strengthening/ROM Medical History Pertinent Medical History: Arthritis, Rheumatoid Arthritis Current History Chief complaint: CVA versus TIA History of present illness: This is a 69-year-old white female with a past medical history of arthritis and high cholesterol who presented to the ER several hours after noticing her speech was slurred and she really couldn't get her shoe on and had difficulty identifying objects when asked what they were. Apparently she was found to have negative stroke workup and stroke score was 3 not a TPA candidate so she was admitted for stratification with cardiology consultation and stroke protocol but since admission she now feels normal without any deficits having no new difficulties. She is not having any dysphasia she is able to walk and has no weakness on either side of her body. She has no facial droop now. She is not slurring her words she is talking clearly and has no problems with her mentation. I have placed high-dose statin therapy along with aspirin per protocol. MRI will be scheduled for tomorrow. Reviewed History: Yes Social History Home: Single Level Current Living Status: Alone Entry Into Home: Stairs With Railing Steps Into Home: 4 per pt and pt sister. pt is horder and house if filled to top with different material. pt sister stated they are from out of state and came in since sister was in hospital. sister stated they did not see any bugs but living conditions are very poor. ADL-Prior Level of Function Therapy Code Descriptions/Definitions Functional [place] Measure: 0=Not Assessed/NA 4=Minimal Assistance 1=Total Assistance 5=Supervision or Setup 2=Maximal Assistance 6=Modified [place] 3=Moderate Assistance 7=Complete [place] Therapy Quality Codes: 6 Independent with activity with or without an assistive device 5 Patient requires set up or clean up by helper. Patient completes activity by themselves 4 Supervision or touching assist (CGA). Girard provide cues , steadying assist 3 The helper provides less than half the effort to complete the activity 2 The helper provides more than half the effort to complete the activity 1 Dependent. The helper does all the effort to complete an activity 7 Patient refused to complete or attempt activity 9 The patient did not perform the activity before the current illness or injury 88 Not attempted due to Medical conditions or safety concerns Functional Abilities and Goals: Independent: Patient completed the activities by him/herself, with or without an assistive device, with no assistance from a helper. Needed Some Help: Patient needed partial assistance from another person to complete activities. Dependent: A helper completed the activities for the patient. Unknown: Not Applicable: Self Care: Independent Functional Cognition: Independent DME/Equipment: Bath Chair, Shower Drive Self: Yes OT Current Status Subjective pt siting in recliner chair upon OT arrival in no apparent distress. pt agreed to OT evaluation session. pt reports no pain at this time. . Appearance accord. to NSG pt is ad ruy in room Mental Status/Objective Patient Orientation: Person, Place, Time, Situation, Normal For Age Current Glasses/Contacts: Yes Hearing Aids: No Dentures/Partials: Yes Hand Dominance: Right Upper Extremity ROM WFL Upper Extremity Coordination WFL Upper Extremity Sensation WFL Upper Extremity Strength WFL ADL-Treatment Therapy Code Descriptions/Definitions Functional [place] Measure: 0=Not Assessed/NA 4=Minimal Assistance 1=Total Assistance 5=Supervision or Setup 2=Maximal Assistance 6=Modified [place] 3=Moderate Assistance 7=Complete [place] Therapy Quality Codes: 6 Independent with activity with or without an assistive device 5 Patient requires set up or clean up by helper. Patient completes activity by themselves 4 Supervision or touching assist (CGA). Girard provide cues , steadying assist 3 The helper provides less than half the effort to complete the activity 2 The helper provides more than half the effort to complete the activity 1 Dependent. The helper does all the effort to complete an activity 7 Patient refused to complete or attempt activity 9 The patient did not perform the activity before the current illness or injury 88 Not attempted due to Medical conditions or safety concerns Eating (FIM): 6 Grooming (FIM): 7 (standing at sink) Bathing (FIM): 7 (based on clinical judgement pt would be indep. ) Upper Body Dressing (FIM): 7 Lower Body Dressing (FIM): 6 (fidel shoes and socks ) Toileting (FIM): 7 Transfers (B, C, W/C) (FIM): 7 (no AD ) Toilet/Commode Transfer (FIM): 7 pt independent with all ADLS/ functional transfers using no AD. 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 handout provided to pt and family. pt read handout and verbalized understanding. OT Short Term Goals Short Term Goals 1=Demonstrate adherence to instructed precautions during ADL tasks. 2=Patient will verbalize/demonstrate understanding of assistive devices/modifications for ADL. 3=Patient will improve strength/tolerance for activity to enable patient to perform ADL's. OT Second Officer Goals Second Officer Goals Additional Goals: 3-ImproveStrength/Trevor 1=Demonstrate adherence to instructed precautions during ADL tasks. 2=Patient will verbalize/demonstrate understanding of assistive devices/modifications for ADL. 3=Patient will improve strength/tolerance for activity to enable patient to perform ADL's. OT Education/Plan Problem List/Assessment per pt and pt sister. pt is hordering and house if filled to top with different material. pt sister stated they are from out of state and came in since sister was in hospital. sister stated they did not see any bugs but living conditions are very poor. pt sister stated they are very concerned about pt returning home secondary to living conditions of house. pt became emotional with this topic. especially when sister stated she was throwing away items. 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 handout provided to pt and family. pt is independent with all ADLS and functional transfers using no AD and can function independently at home. pt is safe to d/c from hospital. SW (griselda) notified of pt sister concerns about living conditions. OT services not indicated secondary to pt being independent. d/c OT services at this time. Discharge Recommendations Plan/Recommendations: Discharge/Goals Met Therapy D/C Recommendations: Home Independently Equpiment Recommendations-D/C: None Treatment Plan/Plan of Care Treatment,Training & Education: Yes Patient would benefit from OT for education, treatment and training to promote independence in ADL's, mobility, safety and/or upper extremity function for ADL's. Plan of Care: Group Exercise/Act as Ind Treatment Duration: May 01, 2019 Frequency: 1 time per week Estimated Hrs Per Day: .25 hour per day Agreement: Yes Rehab Potential: Good Time/GCodes Start Time: 13:00 Stop Time: 13:25 Billed Treatment Time EVL 15 minutes FA 10 minutes TYRELL KING OT May 01, 2019 13:36
[2019-05-01] MEDS ORDERED: ASCO500T7 PO (15:20)
[2019-05-01] MEDS ORDERED: GOLI100D SQ (15:26)
--- NOTE | 2019-05-01 15:27 | NUR ---
WENT OVER THE EXT MED HX WITH THE PATIENT AND SHE VERIFIED HOW SHE TAKES HER MEDICATIONS. IN ADDITION TO WHAT IS SHOWN ON THE EXT MED HX [facility] FILLED FOLIC ACID 1MG DAILY #30 04-18-19. I CALLED 'S OFFICE IN [facility] AND VERIFIED SHE RECEIVES SIMPONI 200MG EVERY 8 WEEKS, THEY REPORT HER LAST INFUSION WAS 03-09-19. SHE TAKES VITAMIN D AND VITAMIN C OTC.
--- NOTE | 2019-05-01 15:37 | ST Cognitive Linguistic Eval ---
Speech Evaluation-General Medical Diagnosis right facial weakness/expressive aphasia/UTI Onset Date: Apr 29, 2019 Therapy Diagnosis Therapy Diagnosis: Cognitive-communication Precautions Precautions/Isolations: Fall Prevention, Standard Precautions Referral Referring Physician: Dr. Moore Medical History Pertinent Medical History: Arthritis, Rheumatoid Arthritis Reviewed History: Yes Social History Current Living Status: Alone Speech PLF-Current Status Prior Level of Function The patient lives home alone and was independent with her daily needs prior to hospitalization. Subjective The patient was compliant with the cognitive evaluation. Language Eval: Auditory Comprehends Simple Yes/No Ques: Functional Indent/Objects Multiple Cerda: Functional Ident/Pics in Multiple Cerda: Functional Follows 1-Step Commands: Functional Follows Complex Directions: Mild Follows General Conversations: Mild Language Eval: Verbal Language Completes Spontaneous Greeting: Functional Produces Auto, Serial Info: Functional Imitates Simple Words/Phrases: Functional Word Finding: Mild Requests Basic Needs: Mild States Basic Personal Info: Mild Expresses Complex Ideas: Moderate The patient's 2 sisters were present during the evaluation. The patient was noted to depend on them for helping her answer during the evaluation questions. Objective Cognitive Domain Attention: WNL Memory: Moderate Problem Solving: Moderate Executive Functions: Moderate Visuospatial Skills: Mild Composite Severity Rating: Moderate Clock Drawing Severity Rating: Moderate Objective Formal/Standardized Tests [facility] Mental Status ([facility]) Results Dementia range of function with SLUMS score of 16/30. Noted deficits with processing of information, memory, problem solving and executive function, Oral Motor/Speech Production Within Functional Limits Impression The patient is a pleasant 69 year old female who was hospitalized a few days ago with a new onset CVA. The patient was referred for a cognitive function evaluation which was completed in her room this morning. The patient was cooperative with the test. Her 2 sisters were present for the evaluation. The patient was noted to depend on them for input to the questions. Patient was redirected to answer the questions herself throughout the process. The patient scored within the dementia range with deficits noted in several areas. The patient will receive skilled cognitive therapy with focus on safety awareness and independence. Speech Short Term Goals Short Term Goals Short Term Goals 1) The patient will complete memory tasks with 90% or greater given minimal verbal and/or visual cues. 2) The patient will complete problem solving tasks with 90% or greater given minimal verbal and/or visual cues. 3) The patient will complete following direction tasks with 90% or greater given minimal verbal and/or visual cues. Speech Usp Goals Usp Goals The patient will improve her language skills related to her safety and independence. Speech-Plan Patient/Family Goals Patient/Family Goals: The patient plans on returning home alone with family support upon hospital discharge. Treatment Plan Speech Therapy Treatment Plan: Continue Plan of Care The patient will receive skilled ST services for aphasia related to safety awareness and independence. Treatment Duration: May 04, 2019 Frequency: 5 times per week Estimated Hrs Per Day: .5 hour per day Rehab Potential: Good Barriers to Learning: New onset CVA Pt/Family Agrees to Plan: Yes Safety Risks/Education Teaching Recipient: Patient, Family Teaching Methods: Demonstration, Discussion Response to Teaching: Verbalize Understanding, Return Demonstration Education Topics Provided: Safety and communication of her wants/needs. Time Speech Therapy Time In: 08:15 Speech Therapy Time Out: 08:30 Total Billed Time: 15 Billed Treatment Time 1, NERISSA Cuellar May 01, 2019 15:36
--- NOTE | 2019-05-01 15:56 | NUR ---
CM/SS, respond to consult. PLAN: Home at discharge as before. SUMMARY: Lengthy visit with patient and her two sisters x 2 who came to be with her from [place] and [place] respectively once learning she was hospitalized. Patient reportedly resides in a rental property, she describes that she got behind the past month or so on housekeeping. Her sisters describe more of a hoarding situation and that the clean up will take several days and lots of effort. Director Of Agriculture provided Caregiver's List because some candidates offer housekeeping. Additionally, locally agencies are listed as well. Between visits, the sisters did call and find two individuals who will begin to assist with clean up. Patient has also been thinking about applying for Medicaid and had started that exploration before requiring hospitalization. A future idea is to move to assisted living, patient does not think she can afford it without assistance. Discussed [facility] and provided contact information for her regarding criteria and then assistance with application process if appropriate. Patient likely will discharge tomorrow. Because care plan was not clear, administrative underwriter contacted Marilee regarding loop recorder that was mentioned in progress note. She will discuss with Dr. Cantu as to whether this will be during this admission or [facility]. Sisters: Meagan Enciso [address], [address] [place] [address] Delfina Kennedy [address] [place] [address]
[2019-05-01] MEDS: cefTRIAXone 1,000 MG/SWFI 10 ML IV PUSH IV SCH ×2 (16:42)
[2019-05-01] MEDS: CATHETER FLUSH 10 ML SYR IV SCH ×2 (16:42→19:54)
[2019-05-01] MEDS: ATORVASTATIN 80 MG (LIPITOR) TABLET PO SCH (19:54)
[2019-05-02 03:35] VITALS: BP 142/78
[2019-05-02] MEDS: KCL 10 MEQ TAB (MICRO K) PO SCH (05:51)
[2019-05-02] MEDS: CATHETER FLUSH 10 ML SYR IV SCH (05:52)
[2019-05-02 05:57] LABS: HEMOGLOBIN 12.8 G/DL (11.5-16.0); MEAN PLATELET VOLUME 10.1 FL (7.4-10.4); RED CELL DISTRIBUTION WIDTH 14.5 % (10.0-14.5); WHITE BLOOD COUNT 7.4 10^3/uL (4.3-11.0)
[2019-05-02 05:57] LABS: BILIRUBIN,URINE NEGATIVE (NEGATIVE); CLARITY,URINE CLEAR; COLOR,URINE YELLOW; GLUCOSE, URINE (UA) NEGATIVE (NEGATIVE); KETONES,URINE NEGATIVE (NEGATIVE); LEUKOCYTE ESTERASE ,URINE 2+ (NEGATIVE); NITRITE,URINE NEGATIVE (NEGATIVE); PH,URINE 7 (5-9); PROTEIN,URINE NEGATIVE (NEGATIVE); UROBILINOGEN,URINE NORMAL (NORMAL)
[2019-05-02 06:15] LABS: ALANINE AMINOTRANSFERASE 13 U/L (0-55); ALBUMIN 3.8 GM/DL (3.2-4.5); ALKALINE PHOSPHATASE 63 U/L (40-136); BILIRUBIN,TOTAL 0.4 MG/DL (0.1-1.0); BUN/CREATININE RATIO 10; CALCIUM 9.3 MG/DL (8.5-10.1); CARBON DIOXIDE 25 MMOL/L (21-32); CHLORIDE 106 MMOL/L (98-107); CREATININE SERUM 0.91 MG/DL (0.60-1.30); GFR ESTIMATED > 60; GLUCOSE 100 MG/DL (70-105); POTASSIUM 3.9 MMOL/L (3.6-5.0); SODIUM 142 MMOL/L (135-145); TOTAL PROTEIN 6.7 GM/DL (6.4-8.2)
[2019-05-02 06:24] LABS: BACTERIA,URINE FEW /HPF
[2019-05-02 08:00] VITALS: BP 134/85
--- NOTE | 2019-05-02 08:17 | Progress Note (SOAP) ---
Subjective Time Seen by a Provider: 08:15 Subjective/Events-last exam Patient doing better and feeling better. Patient to be discharged today. Patient see Dr. Kong this . Objective Exam Vital Signs Date Time Temp Pulse Resp B/P (MAP) Pulse Ox O2 Delivery O2 Flow Rate FiO2 05/02/19 03:35 98.7 74 16 142/78 (99) 95 Room Air 05/02/19 01:00 65 05/01/19 23:11 98.1 78 20 125/74 (91) 96 Room Air 05/01/19 19:55 Room Air 05/01/19 19:45 98.4 89 18 131/77 (95) 95 Room Air 05/01/19 19:00 86 05/01/19 16:50 98.5 69 18 135/85 (102) 98 Room Air 05/01/19 13:00 87 05/01/19 12:00 98.4 68 18 165/84 (111) 97 Room Air I & O 05/02/19 07:00 Intake Total 2100 ml Output Total 2525 ml Balance -425 ml Capillary Refill : Less Than 3 Seconds General Appearance: No Apparent Distress, WD/WN HEENT: Normal ENT Inspection Neck: Full Range of Motion, Normal Inspection Respiratory: Lungs Clear, No Accessory Muscle Use, No Respiratory Distress Cardiovascular: Regular Rate, Rhythm, No Murmur Gastrointestinal: non tender, soft Results Lab Laboratory Tests 05/02/19 05:10 Laboratory Tests 05/02/19 05:10: White Blood Count 7.4, Red Blood Count 4.03L, Hemoglobin 12.8, Hematocrit 39, Mean Corpuscular Volume 97, Mean Corpuscular Hemoglobin 32, Mean Corpuscular Hemoglobin Concent 33, Red Cell Distribution Width 14.5, Platelet Count 293, Mean Platelet Volume 10.1, Sodium Level 142, Potassium Level 3.9, Chloride Level 106, Carbon Dioxide Level 25, Anion Gap 11, Blood Urea Nitrogen 9, Creatinine 0.91, Estimat Glomerular Filtration Rate > 60, BUN/Creatinine Ratio 10, Glucose Level 100, Calcium Level 9.3, Corrected Calcium 9.5, Total Bilirubin 0.4, Aspartate Amino Transf (AST/SGOT) 17, Alanine Aminotransferase (ALT/SGPT) 13, Alkaline Phosphatase 63, Total Protein 6.7, Albumin 3.8 05/02/19 05:45: Urine Color YELLOW, Urine Clarity CLEAR, Urine pH 7, Urine Specific [place] 1.0 10L, Urine Protein NEGATIVE, Urine Glucose (UA) NEGATIVE, Urine Ketones NEGATIVE, Urine Nitrite NEGATIVE, Urine Bilirubin NEGATIVE, Urine Urobilinogen NORMAL, Urine Leukocyte Esterase 2+H, Urine RBC (Auto) NEGATIVE, Urine RBC NONE, Urine WBC 10-25H, Urine Squamous Epithelial Cells 2-5, Urine Crystals NONE, Urine Bacteria FEWH, Urine Casts NONE, Urine Mucus NEGATIVE, Urine Culture Indicated YES Microbiology 04/29/19 Urine Culture - Final, Complete 3 or more isolates Assessment/Plan Assessment/Plan Assess & Plan/Chief Complaint Right facial weakness. Expressive a fascia resolving. Confusion resolving . Hyperlipidemia. Plan to discharge tomorrow. . 05/02/19. Right facial weakness resolved. A fascia resolved. No confusion. Discharge today. To see Dr. Kong on Clinical Quality Measures DVT/VTE Risk/Contraindication: Risk Factor Score Per Nursin RFS Level Per Nursing on Admit: 3=High AMELIA PALUMBO DO May 02, 2019 08:17
[2019-05-02] MEDS: amLODIPine 5 MG (NORVASC) TAB PO SCH (09:03)
[2019-05-02] MEDS: SENNA W/DOCUSATE (SENOKOT S) TABLET PO SCH (09:04)
[2019-05-02] MEDS: ASPIRIN E.C. 325 MG (ECOTRIN) TABLET PO SCH (09:04)
[2019-05-02] MEDS ORDERED: LIDOCAINE 1% INJ 20 ML 20 ML VIAL ONE (09:35)
--- NOTE | 2019-05-02 09:57 | Progress Note-Cardiology ---
Cardiology SOAP Progress Note Subjective: No cp, palp, syncope, recurrence of slurred speech or focal weakness Wishes to go home Objective: I&O/Vital Signs 05/01/19 05/02/19 05/02/19 05/02/19 23:11 01:00 03:35 07:00 Temp 98.1 98.7 Pulse 78 65 74 78 Resp 20 16 B/P (MAP) 125/74 (91) 142/78 (99) Pulse Ox 96 95 O2 Delivery Room Air Room Air 05/02/19 08:00 O2 Delivery Room Air 05/02/19 00:00 Intake Total 1500 ml Output Total 1725 ml Balance -225 ml Weight (Pounds): 210 Weight (Ounces): 6.4 Weight (Calculated Kilograms): 95.944260 Constitutional: AAO x 3, well-developed, well-nourished Respiratory: No accessory muscle use; lungs clear to percussion, lungs clear to auscultation Cardiovascular: regular rate-rhythm, S1 and S2, systolic murmur (2/6 SUJEY at card base) Gastrointestional: No tender; soft; No guarding, No rebound; audible bowel sounds Extremities: No clubbing, No cyanosis, No significant edema Neurologic/Psychiatric: other (answers questions appropriately, moves all limbs equally, gait normal) Skin: No rash on exposed areas, No ulcerations on exposed areas Results/Procedures: Labs Laboratory Tests 05/02/19 05:10: White Blood Count 7.4, Red Blood Count 4.03L, Hemoglobin 12.8, Hematocrit 39, Mean Corpuscular Volume 97, Mean Corpuscular Hemoglobin 32, Mean Corpuscular Hemoglobin Concent 33, Red Cell Distribution Width 14.5, Platelet Count 293, Mean Platelet Volume 10.1, Sodium Level 142, Potassium Level 3.9, Chloride Level 106, Carbon Dioxide Level 25, Anion Gap 11, Blood Urea Nitrogen 9, Creatinine 0.91, Estimat Glomerular Filtration Rate > 60, BUN/Creatinine Ratio 10, Glucose Level 100, Calcium Level 9.3, Corrected Calcium 9.5, Total Bilirubin 0.4, Aspartate Amino Transf (AST/SGOT) 17, Alanine Aminotransferase (ALT/SGPT) 13, Alkaline Phosphatase 63, Total Protein 6.7, Albumin 3.8 05/02/19 05:45: Urine Color YELLOW, Urine Clarity CLEAR, Urine pH 7, Urine Specific Bath 1.010L, Urine Protein NEGATIVE, Urine Glucose (UA) NEGATIVE, Urine Ketones NEGATIVE, Urine Nitrite NEGATIVE, Urine Bilirubin NEGATIVE, Urine Urobilinogen N ORMAL, Urine Leukocyte Esterase 2+H, Urine RBC (Auto) NEGATIVE, Urine RBC NONE, Urine WBC 10-25H, Urine Squamous Epithelial Cells 2-5, Urine Crystals NONE, Urine Bacteria FEWH, Urine Casts NONE, Urine Mucus NEGATIVE, Urine Culture Indicated YES Microbiology 04/29/19 Urine Culture - Final, Complete 3 or more isolates Laboratory Tests 05/02/19 05:10 A/P: Assessment: Suspected TIA on 04/29/19 (slurred speech and impaired motor coordination for an hour) but no evidence of such on MRI of 05/01/19 Hypertension Elevated BMI of approx 30 Questionable UTI, managed by the Med Svce Echo of 04/30/19: LVEF 65-70%, AoV sclerosis w/o stenosis, RVSP 30 mmHg There is no hemodynamically significant stenosis of the carotid systems. Both vertebral arteries were opacified and the left vertebral artery is dominant per CTA of the head and neck on 04-29-19 Report family h/o CVA with arrhythmia - father in his 60's Plan: * I have had a detailed discussion with her and her sisters yesterday. Today I discussed her CV issues again with her and one of her sisters * She wishes to proceed with ILR. This appears reasonable because occult A Fib is a consideration. If PAF detected, she would need to be on OAC * We recommend d/c on the following cardiac meds: ECASA 325 mg daily, atorvastatin 40 mg daily, amlodipine 5 mg daily * Outpt f/u is advised KIANA JACOBS MD FACP [facility] CCDS May 02, 2019 09:57
[2019-05-02] MEDS ORDERED: ATOR80TA76 PO (10:15)
[2019-05-02] MEDS ORDERED: AMLO5TAB9 PO (10:15)
[2019-05-02] MEDS ORDERED: ASPI325T32 PO (10:15)
--- NOTE | 2019-05-02 11:25 | Cardiac Procedure Note-CS/ASA ---
Pre-Procedure Note Pre-Op Procedure Note H&P Reviewed The H&P was reviewed, patient examined and no changes noted. Date H&P Reviewed: May 02, 2019 Time H&P Reviewed: 09:30 Conscious Sedation Pre-Proced Time 09:30 ASA Score 3 For ASA 3 and 4: Consider anesthesia and medical clearance. Also, for patients with a history of failed moderate sedation consider anesthesia. Airway Lungs Heart ASA score ASA 1: a normal healthy patient ASA 2: a patient with a mild systemic disease (mid diabetes, controlled hypertension, obesity ASA 3: a patient with a severe systemic disease that limits activity (angina, COPD, prior Myocardial infarction) ASA 4: a patient with an incapacitating disease that is a constant threat to life (CHF, renal failure) ASA 5: a moribund patient not expected to survive 24 hrs. (ruptured aneurysm) ASA 6: a declared brain- patient whose organs are being harvested. For emergent operations, add the letter E after the classification Mallampati Classification Grade 2 Sedation Plan Analgesia, Amnesia, Plan communicated to team members, Discussed options with patient/fam, Discussed risks with patient/fam The patient is an appropriate candidate to undergo the planned procedure, sedation, and anesthesia. The patient immediately re-assessed prior to indication. KIANA JACOBS MD FACP FAC CCDS May 02, 2019 11:24
--- NOTE | 2019-05-02 11:49 | Diagnostic Imaging Report ---
CLINICAL INDICATION: Patient with right facial weakness, chest discomfort. COMPARISON: None EXAM: Real-time carotid Doppler duplex imaging is performed bilaterally. Peak systolic velocity, ICA/CCA peak systolic ratio, spectral analysis, and vascular morphology are studied. FINDINGS: ARTERY VELOCITY Right Left CCA 1.08 m/s 0.94 m/s ICA 0.83 m/s 0.91 m/s ECA 0.68 m/s 0.71 m/s ICA/CCA 0.76 0.97 VERT.ART Antegrade Antegrade There is no significant atherosclerotic disease. IMPRESSION: There is no grayscale or Doppler evidence of significant vascular stenosis. Dictated by: Dictated on workstation # [id number]
[2019-05-02 12:00] VITALS: BP 151/79
[2019-05-02 13:00] VITALS: BP 151/79
--- NOTE | 2019-05-02 14:55 | OPERATIVE REPORT ---
DATE OF SERVICE: 05/02/2019 PREOPERATIVE DIAGNOSIS: Cryptogenic stroke. POSTOPERATIVE DIAGNOSIS: Cryptogenic stroke. PROCEDURE PERFORMED: Implantable loop recorder implantation. DESCRIPTION OF PROCEDURE: The patient is a 69-year-old lady, who recently had a transient ischemic attack of undetermined etiology. Occult atrial fibrillation is a concern. Implantable loop recorder implantation was carried after having obtained an informed consent. The left prepectoral area was prepared and draped in the usual sterile fashion. Lidocaine 1% was used for local anesthesia. The tools provided with the JLGOV Reveal LINQ device were used to make a subcutaneous pocket anterior to the left fourth intercostal space into which the device was placed without difficulty and the skin edges were closed with Dermabond and Steri-Strips. He tolerated the procedure well. The serial number of the device is [id number]. Job ID: [id number] DocumentID: [id number] Dictated Date: 05/02/2019 10:15:35 Cigar Binder Date: 05/02/2019 14:54:52 Dictated By: KIANA JACOBS MD, MA, FACP, FACC,
--- NOTE | 2019-05-02 20:39 | Discharge Summary ---
Diagnosis/Chief Complaint Date of Admission Apr 29, 2019 at 15:55 Date of Discharge May 02, 2019 at 13:00 Discharge Time: 20:37 Discharge Diagnosis Today's ischemic attack. Weakness on right side of face. Expressive fascia. Hypertension. Hyperlipidemia. Rheumatoid arthritis. An implanted loop recorder implantation Discharge Summary Procedures Implanted loop recorder implantation Consultations Cardiology Discharge Physical Examination Allergies: Coded Allergies: No Known Drug Allergies (Unverified , 09/13/14) Vitals & I&Os Vital Signs Date Time Temp Pulse Resp B/P (MAP) Pulse Ox O2 Delivery O2 Flow Rate FiO2 05/02/19 13:00 74 20 151/79 96 Room Air 05/02/19 12:00 97.3 Hospital Course Patient in hospital did better. Patient was able to speak good. Patient to see primary care physician Dr. Dilan Rucker (last 24 hrs) Laboratory Tests 04/29/19 12:38: White Blood Count 9.2, Red Blood Count 4.06L, Hemoglobin 13.1, Hematocrit 39, Mean Corpuscular Volume 95, Mean Corpuscular Hemoglobin 32, Mean Corpuscular Hemoglobin Concent 34, Red Cell Distribution Width 14.5, Platelet Count 359, Mean Platelet Volume 9.7, Neutrophils (%) (Auto) 65, Lymphocytes (%) (Auto) 25, Monocytes (%) (Auto) 8, Eosinophils (%) (Auto) 2, Basophils (%) (Auto) 0, Neutrophils # (Auto) 6.0, Lymphocytes # (Auto) 2.3, Monocytes # (Auto) 0.7, Eosinophils # (Auto) 0.2, Basophils # (Auto) 0.0, Prothrombin Time 12.8, INR Comment 0.9, Activated Partial Thromboplast Time 32, D-Dimer 0.41, Sodium Level 139, Potassium Level 3.6, Chloride Level 107, Carbon Dioxide Level 21, Anion Gap 11, Blood Urea Nitrogen 8, Creatinine 0.88, Estimat Glomerular Filtration Rate > 60, BUN/Creatinine Ratio 9, Glucose Level 105, Calcium Level 9.2, Corrected Calcium 9.1, Magnesium Level 2.1, Total Bilirubin 0.4, Aspartate Amino Transf (AST/SGOT) 18, Alanine Aminotransferase (ALT/SGPT) 13, Alkaline Phosphatase 75, Troponin I < 0.028, Total Protein 6.9, Albumin 4.1 04/29/19 14:20: Urine Color YELLOW, Urine Clarity CLEAR, Urine pH 7, Urine Specific Tyler 1.005L, Urine Protein 1+H, Urine Glucose (UA) NEGATIVE, Urine Ketones NEGATIVE, Urine Nitrite NEGATIVE, Urine Bilirubin NEGATIVE, Urine Urobilinogen NORMAL, Urine Leukocyte Esterase 2+H, Urine RBC (Auto) NEGATIVE, Urine RBC NONE, Urine WBC 5-10H, Urine Squamous Epithelial Cells RARE, Urine Crystals NONE, Urine Bacteria MODERATEH, Urine Casts NONE, Urine Mucus NEGATIVE, Urine Culture Indicated YES 04/29/19 15:55: Lab Scanned Report Referred Lab Report 04/30/19 05:35: White Blood Count 7.5, Red Blood Count 3.85L, Hemoglobin 12.3, Hematocrit 37, Mean Corpuscular Volume 96, Mean Corpuscular Hemoglobin 32, Mean Corpuscular Hemoglobin Concent 33, Red Cell Distribution Width 14.4, Platelet Count 295, Mean Platelet Volume 9.9, Sodium Level 143, Potassium Level 3.5L, Chloride Level 108H, Carbon Dioxide Level 24, Anion Gap 11, Blood Urea Nitrogen 6L, Creatinine 0.88, Estimat Glomerular Filtration Rate > 60, BUN/Creatinine Ratio 7, Glucose Level 96, Calcium Level 9.0, Corrected Calcium 9.3, Total Bilirubin 0.4, Aspartate Amino Transf (AST/SGOT) 15, Alanine Aminotransferase (ALT/SGPT) 12, Alkaline Phosphatase 63, Total Protein 6.4, Albumin 3.6, Triglycerides Level 88, Cholesterol Level 226H, LDL Cholesterol Direct 139H, VLDL Cholesterol 18, HDL Cholesterol 73H 05/02/19 05:10: White Blood Count 7.4, Red Blood Count 4.03L, Hemoglobin 12.8, Hematocrit 39, Mean Corpuscular Volume 97, Mean Corpuscular Hemoglobin 32, Mean Corpuscular Hemoglobin Concent 33, Red Cell Distribution Width 14.5, Platelet Count 293, Mean Platelet Volume 10.1, Sodium Level 142, Potassium Level 3.9, Chloride Level 106, Carbon Dioxide Level 25, Anion Gap 11, Blood Urea Nitrogen 9, Creatinine 0.91, Estimat Glomerular Filtration Rate > 60, BUN/Creatinine Ratio 10, Glucose Level 100, Calcium Level 9.3, Corrected Calcium 9.5, Total Bilirubin 0.4, Aspartate Amino Transf (AST/SGOT) 17, Alanine Aminotransferase (ALT/SGPT) 13, Alkaline Phosphatase 63, Total Protein 6.7, Albumin 3.8 05/02/19 05:45: Urine Color YELLOW, Urine Clarity CLEAR, Urine pH 7, Urine Specific Tyler 1.010L, Urine Protein NEGATIVE, Urine Glucose (UA) NEGATIVE, Urine Ketones NEGATIVE, Urine Nitrite NEGATIVE, Urine Bilirubin NEGATIVE, Urine Urobilinogen NORMAL, Urine Leukocyte Esterase 2+H, Urine RBC (Auto) NEGATIVE, Urine RBC NONE, Urine WBC 10-25H, Urine Squamous Epithelial Cells 2-5, Urine Crystals NONE, Urine Bacteria FEWH, Urine Casts NONE, Urine Mucus NEGATIVE, Urine Culture Indic ated YES Microbiology 04/29/19 Urine Culture - Final, Complete 3 or more isolates Laboratory Tests 04/29/19 12:38 04/30/19 05:35 05/02/19 05:10 Pending Labs Microbiology Date/Time Source Procedure Growth Status 04/29/19 14:20 Urine Clean Catch Urine Culture - Final 3 or more isolates Complete Laboratory Tests 04/29/19 12:38: White Blood Count 9.2, Red Blood Count 4.06, Hemoglobin 13.1, Hematocrit 39, Mean Corpuscular Volume 95, Mean Corpuscular Hemoglobin 32, Mean Corpuscular Hemoglobin Concent 34, Red Cell Distribution Width 14.5, Platelet Count 359, Mean Platelet Volume 9.7, Neutrophils (%) (Auto) 65, Lymphocytes (%) (Auto) 25, Monocytes (%) (Auto) 8, Eosinophils (%) (Auto) 2, Basophils (%) (Auto) 0, Neutrophils # (Auto) 6.0, Lymphocytes # (Auto) 2.3, Monocytes # (Auto) 0.7, Eosinophils # (Auto) 0.2, Basophils # (Auto) 0.0, Prothrombin Time 12.8, INR Comment 0.9, Activated Partial Thromboplast Time 32, D-Dimer 0.41, Sodium Level 139, Potassium Level 3.6, Chloride Level 107, Carbon Dioxide Level 21, Anion Gap 11, Blood Urea Nitrogen 8, Creatinine 0.88, Estimat Glomerular Filtration Rate > 60, BUN/Creatinine Ratio 9, Glucose Level 105, Calcium Level 9.2, Corrected Calcium 9.1, Magnesium Level 2.1, Total Bilirubin 0.4, Aspartate Amino Transf (AST/SGOT) 18, Alanine Aminotransferase (ALT/SGPT) 13, Alkaline Phosphatase 75, Troponin I < 0.028, Total Protein 6.9, Albumin 4.1 04/29/19 14:20: Urine Color YELLOW, Urine Clarity CLEAR, Urine pH 7, Urine Specific Tyler 1.005, Urine Protein 1+, Urine Glucose (UA) NEGATIVE, Urine Ketones NEGATIVE, Urine Nitrite NEGATIVE, Urine Bilirubin NEGATIVE, Urine Urobilinogen NORMAL, Urine Leukocyte Esterase 2+, Urine RBC (Auto) NEGATIVE, Urine RBC NONE, Urine WBC 5-10, Urine Squamous Epithelial Cells RARE, Urine Crystals NONE, Urine Bacteria MODERATE, Urine Casts NONE, Urine Mucus NEGATIVE, Urine Culture Indicated YES 04/29/19 15:55: Lab Scanned Report Referred Lab Report 04/30/19 05:35: White Blood Count 7.5, Red Blood Count 3.85, Hemoglobin 12.3, Hematocrit 37, Mean Corpuscular Volume 96, Mean Corpuscular Hemoglobin 32, Mean Corpuscular Hemoglobin Concent 33, Red Cell Distribution Width 14.4, Platelet Count 295, Mean Platelet Volume 9.9, Sodium Level 143, Potassium Level 3.5, Chloride Level 108, Carbon Dioxide Level 24, Anion Gap 11, Blood Urea Nitrogen 6, Creatinine 0.88, Estimat Glomerular Filtration Rate > 60, BUN/Creatinine Ratio 7, Glucose Level 96, Calcium Level 9.0, Corrected Calcium 9.3, Total Bilirubin 0.4, Aspartate Amino Transf (AST/SGOT) 15, Alanine Aminotransferase (ALT/SGPT) 12, Alkaline Phosphatase 63, Total Protein 6.4, Albumin 3.6, Triglycerides Level 88, Cholesterol Level 226, LDL Cholesterol Direct 139, VLDL Cholesterol 18, HDL Cholesterol 73 05/02/19 05:10: White Blood Count 7.4, Red Blood Count 4.03, Hemoglobin 12.8, Hematocrit 39, Mean Corpuscular Volume 97, Mean Corpuscular Hemoglobin 32, Mean Corpuscular Hemoglobin Concent 33, Red Cell Distribution Width 14.5, Platelet Count 293, Mean Platelet Volume 10.1, Sodium Level 142, Potassium Level 3.9, Chloride Level 106, Carbon Dioxide Level 25, Anion Gap 11, Blood Urea Nitrogen 9, Creatinine 0.91, Estimat Glomerular Filtration Rate > 60, BUN/Creatinine Ratio 10, Glucose Level 100, Calcium Level 9.3, Corrected Calcium 9.5, Total Bilirubin 0.4, Aspartate Amino Transf (AST/SGOT) 17, Alanine Aminotransferase (ALT/SGPT) 13, Alkaline Phosphatase 63, Total Protein 6.7, Albumin 3.8 05/02/19 05:45: Urine Color YELLOW, Urine Clarity CLEAR, Urine pH 7, Urine Specific Tyler 1.010, Urine Protein NEGATIVE, Urine Glucose (UA) NEGATIVE, Urine Ketones NEGATIVE, Urine Nitrite NEGATIVE, Urine Bilirubin NEGATIVE, Urine Urobilinogen NORMAL, Urine Leukocyte Esterase 2+, Urine RBC (Auto) NEGATIVE, Urine RBC NONE, Urine WBC 10-25, Urine Squamous Epithelial Cells 2-5, Urine Crystals NONE, Urine Bacteria FEW, Urine Casts NONE, Urine Mucus NEGATIVE, Urine Culture Indicated YES Discharge Home Medications: Active Scripts Active Aspirin EC (Aspirin) 325 Mg Tablet.dr 325 Mg PO DAILY Amlodipine Besylate 5 Mg Tablet 5 Mg PO DAILY Atorvastatin Calcium 80 Mg Tablet 80 Mg PO HS Reported Simponi (Golimumab) 100 Mg/1 Ml Syringe 200 Mg SQ EVERY 8 WEEKS Ascorbic Acid 500 Mg Tablet 500 Mg PO DAILY Folic Acid 1 Mg Tablet 1 Mg PO DAILY Methotrexate Tablet (Methotrexate) 2.5 Mg Tablet 25 Mg PO WEDNESDAY TAKES 10 (2.5MG) TABLETS Vitamin D3 (Cholecalciferol (Vitamin D3)) 1,000 Unit Capsule 2,000 Unit PO DAILY TAKES 2 (1,000 UNITS) CAPSULES Nabumetone 750 Mg Tablet 1,500 Mg PO DAILY TAKES 2 (750MG) TABLETS Instructions to patient/family Please see electronic discharge instructions given to patient. Clinical Quality Measures DVT/VTE Risk/Contraindication: Risk Factor Score Per Nursin RFS Level Per Nursing on Admit: 3=High AMELIA PALUMBO DO May 02, 2019 20:39
== END 2019-05-02 13:00 | disposition home or self-care (01) | DRG 41 ==
LOC: EDUNIT# 12:26 → ER 12:28 → 4TH 15:55
PROVIDERS: ADMIT Internal Medicine; ATTEND Internal Medicine
PROC: 0JH602Z Insertion of Monitoring Device into Chest Subcutaneous Tissue and Fascia, Open Approach (ICD-10-PCS; principal; 2019-05-02)
DX: G45.9 Transient cerebral ischemic attack, unspecified (principal); R29.810 Facial weakness; R47.01 Aphasia; N39.0 Urinary tract infection, site not specified; R47.81 Slurred speech; I10 Essential (primary) hypertension; E78.5 Hyperlipidemia, unspecified; M06.9 Rheumatoid arthritis, unspecified; Z66 Do not resuscitate; E78.00 Pure hypercholesterolemia, unspecified; M19.91 Primary osteoarthritis, unspecified site; Z82.3 Family history of stroke; Z80.3 Family history of malignant neoplasm of breast; Z80.7 Family history of other malignant neoplasms of lymphoid, hematopoietic and related tissues
CPT/HCPCS: 33285; 36415; 70450; 70496; 70498; 70551; 71045; 80053; 80061; 81000; 83735; 84484; 85025; 85027; 85379; 85610; 85730; 87088; 93005; 93041; 93306; 93880; 94664; 96365

== ENCOUNTER 2019-06-14 19:40 | Outpatient (CLI) | payer MEDICARE, OTHER ==
[~2019-06-14 19:40] MED LIST changes: +AMLO5TAB9 PO; +ASCO-129 PO; +ASCO500T7 PO; +ASPI325T32 PO; +ATOR80TA76 PO; +GOLI100D SQ; +[UNRECOGNIZED DRUG - OTHER] IV
== END 2019-06-15 06:49 | disposition home or self-care (01) ==
LOC: SLEEP 19:40
PROVIDERS: ATTEND Nurse Practitioner
DX: G47.33 Obstructive sleep apnea (adult) (pediatric) (principal); G47.10 Hypersomnia, unspecified; G47.61 Periodic limb movement disorder; R09.02 Hypoxemia; Z86.73 Personal history of transient ischemic attack (TIA), and cerebral infarction without residual deficits
CPT/HCPCS: 95811

== ENCOUNTER → 2019-07-07 | Outpatient (CLI) | payer MEDICARE, OTHER ==
--- NOTE | 2019-07-07 20:08 | Diagnostic Imaging Report ---
EXAMINATION: Digital mammogram bilateral screening. The current study was also evaluated with a Computer Aided Detection (CAD) system. 3-D tomosynthesis was also performed and reviewed. INDICATION: Screening. This study was compared to the prior exam of 04/07/2018. At this time, there are no current complaints. FINDINGS: There is only a mild amount of fibroglandular tissue in both breasts. When compared to the previous study there does not appear to have been any significant change. There is no primary or secondary sign of malignancy noted. The 3-D tomographic views also fail to show any sign of malignancy. In the interval since the prior exam, a loop recorder device has been inserted on the left. IMPRESSION: There is no radiographic evidence for malignancy. ACR BI-RADS Category 1: Negative. Result letter will be mailed to the patient. Note: At least 10% of breast cancer is not imaged by mammography. Dictated by: Dictated on workstation # [id number]
== END ==
LOC: RAD 08:52
PROVIDERS: ATTEND Nurse Practitioner Family
DX: Z12.31 Encounter for screening mammogram for malignant neoplasm of breast (principal)
CPT/HCPCS: 77067

== ENCOUNTER → 2020-08-01 | Outpatient (CLI) | payer MEDICARE, OTHER ==
[~2020-08-01] MED LIST changes: +GADOBUTROL 10 MMOL/10 ML (GADAVIST) VIAL IV ONE
--- NOTE | 2020-08-01 16:54 | Diagnostic Imaging Report ---
EXAMINATION: MR imaging brain with and without contrast. TECHNIQUE: Multiplanar, multisequence MR imaging of the brain was performed with and without contrast. HISTORY: Dementia and hydrocephalus COMPARISON: 05/01/2019 FINDINGS: The pedersen-white matter differentiation is normal. No mass effect or midline shift. Ventricles are dilated but appear unchanged from prior MRI. No obstruction is seen. There is generalized cerebral atrophy. Basilar cisterns are patent. No evidence for acute ischemia on diffusion weighted images. No hemorrhage is seen on the susceptibility weighted images. There are no intra- or extra-axial fluid collections. The pituitary gland and posterior fossa are normal. Upper cervical spinal cord signal intensity is normal. Thalamus and basal ganglia are normal. Normal flow voids are seen in the intracranial vasculature. The marrow signal in the calvarium is normal. The orbits are normal. Paranasal sinuses are normal. Mastoid air cells are clear. No soft tissue abnormality is seen. IMPRESSION: 1. Stable dilated ventricles in the setting of cerebral atrophy. No obstruction is seen. The degree of dilation is somewhat greater than expected for the amount of atrophy which can be seen with normal pressure hydrocephalus. Dictated by: Dictated on workstation # [id number]
== END ==
LOC: RAD 13:15
PROVIDERS: ATTEND Family Medicine
DX: G93.89 Other specified disorders of brain (principal); G91.9 Hydrocephalus, unspecified; F03.90 Unspecified dementia, unspecified severity, without behavioral disturbance, psychotic disturbance, mood disturbance, and anxiety
CPT/HCPCS: 70553

== ENCOUNTER 2021-03-27 09:21 | Emergency (ER) | payer MEDICARE, OTHER ==
[~2021-03-27] VITALS: Ht 177.8 cm; Wt 102.2 kg
[~2021-03-27 09:21] MED LIST changes: +AMLO-250 PO; -AMLO5TAB9 PO; -FOLI1TAB24 PO; +FOLI1TAB33 PO; -GADOBUTROL 10 MMOL/10 ML (GADAVIST) VIAL IV ONE; +NABU-95 PO; -NABU750T PO
[2021-03-27 09:43] LABS: BASOPHILS % (AUTO) 0 % (0-10); EOSINOPHILS # (AUTO) 0.1 10^3/uL (0.0-0.3); EOSINOPHILS % (AUTO) 1 % (0-10); HEMATOCRIT 36 % (35-52); LYMPHOCYTES # (AUTO) 1.3 10^3/uL (1.0-4.0); LYMPHOCYTES % (AUTO) 12 % (12-44); MEAN CORPUSCULAR HEMOGLOBIN 32 pg (25-34); MEAN CORPUSCULAR HGB CONC 33 g/dL (32-36); MEAN CORPUSCULAR VOLUME 95 fL (80-99); MEAN PLATELET VOLUME 10.2 fL (9.0-12.2); MONOCYTES # (AUTO) 1.1 10^3/uL (0.0-1.0); MONOCYTES % (AUTO) 11 % (0-12); NEUTROPHILS # (AUTO) 8.2 10^3/uL (1.8-7.8); NEUTROPHILS % (AUTO) 76 % (42-75); PLATELET COUNT 253 10^3/uL (130-400); WHITE BLOOD COUNT 10.8 10^3/uL (4.3-11.0)
[2021-03-27 09:56] LABS: ALBUMIN 3.6 GM/DL (3.2-4.5)
--- NOTE | 2021-03-27 09:56 | Diagnostic Imaging Report ---
INDICATION: Wrist pain, fall COMPARISON: None available TECHNIQUE: 3 radiographs the right wrist dated 03/27/2021. FINDINGS: No acute fracture or dislocation. No destructive osseous process. Carpal alignment is well maintained. Scattered degenerative changes are present, including severe degenerative changes involving the 1st CMC joint with severe joint space narrowing and osteophyte formation. Mild narrowing of the radiocarpal joints. No suspicious radiopaque foreign body. IMPRESSION: No acute osseous abnormality with scattered degenerative changes, including advanced degenerative changes of the 1st CMC joint. Dictated by: Dictated on workstation # [id number]
[2021-03-27 09:57] LABS: CHLORIDE 98 MMOL/L (98-107); POTASSIUM 3.5 MMOL/L (3.6-5.0); SODIUM 132 MMOL/L (135-145)
[2021-03-27 09:58] LABS: CALCIUM 9.1 MG/DL (8.5-10.1)
[2021-03-27 09:59] LABS: GLUCOSE 109 MG/DL (70-105)
[2021-03-27 10:00] LABS: CARBON DIOXIDE 24 MMOL/L (21-32)
[2021-03-27 10:01] LABS: BILIRUBIN,TOTAL 0.8 MG/DL (0.1-1.0)
[2021-03-27 10:03] LABS: ALKALINE PHOSPHATASE 92 U/L (40-136); CREATININE SERUM 0.86 MG/DL (0.60-1.30); GFR ESTIMATED > 60
[2021-03-27 10:04] LABS: BUN/CREATININE RATIO 10
--- NOTE | 2021-03-27 10:05 | Diagnostic Imaging Report ---
PROCEDURE: CT head and CT cervical spine without contrast. TECHNIQUE: Multiple contiguous axial images were obtained through the brain and cervical spine without the use of intravenous contrast. Sagittal and coronal reformations through the cervical spine were then performed. Auto Exposure Controls were utilized during the CT exam to meet ALARA standards for radiation dose reduction. INDICATION: Fall. Correlation is made to prior head CT from 04/29/2019. Ventricles and sulci are prominent consistent with cerebral atrophy. No sulcal effacement or midline shift is identified. No acute intra-axial or extra-axial hemorrhage is detected. Cisterns are patent. Visualized paranasal sinuses are clear. IMPRESSION: No acute intracranial process is detected. CT CERVICAL SPINE: Alignment is normal. Severe multilevel degenerative disc disease is noted with significant disc space narrowing and marginal spurring. Prevertebral tissues are within normal limits. Odontoid is intact. There is multilevel facet arthropathy. IMPRESSION: Severe cervical spondylosis. No acute bony abnormality is detected. Dictated by: Dictated on workstation # [id number]
[2021-03-27 10:06] LABS: ALANINE AMINOTRANSFERASE 15 U/L (0-55); MAGNESIUM 1.9 MG/DL (1.6-2.4)
--- NOTE | 2021-03-27 10:08 | ED Fall/Injury ---
General Chief Complaint: Trauma-Non Activation Stated Complaint: FALL Nursing Triage Note: TO ED PER EMS FROM [facility]. REPORT FROM EMS FROM STAFF THAT SHE HAS FALLEN X3 OVER 2HRS. HAS ABRASION ON R SIDE OF FOREHEAD. WITH INCREASE CONFUSION. HAS PMH OF DEMENTIA PATIENT ALERT ON ADMIT. C/O DISCOMFORMENT IN R WRIST. Source: patient, EMS, other (Dr. Kong) Exam Limitations: no limitations History of Present Illness Date Seen by Provider: March 27, 2021 Time Seen by Provider: 09:23 Initial Comments This is 70-year-old woman presents to the emergency room via EMS from [facility] with concerns about multiple falls in recent days. She has a contusion over the right forehead from a fall a couple of days ago. She has some pain and swelling in the right wrist. She has had increased confusion rece ntly and incontinence. She is presently under work-up with Dr. Kong and Dr. Stallworth (or Dr. 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 An MRI performed last year showed a disproportionate enlargement of the ventricles. Patient has difficulty with gait which contributes to her falls. She is also treated for rheumatoid arthritis. Allergies and Home Medications Allergies Coded Allergies: No Known Drug Allergies (Unverified , 09/13/14) Home Medications Amlodipine Besylate 5 Mg Tablet, 5 MG PO DAILY Prescribed by: REUBEN LOVE on 05/02/19 1015 Ascorbic Acid 500 Mg Tablet, 500 MG PO DAILY, (Reported) Aspirin 325 Mg Tablet.dr 325 MG PO DAILY Prescribed by: REUBEN LOVE on 05/02/19 1015 Atorvastatin Calcium 80 Mg Tablet, 80 MG PO HS Prescribed by: REUBEN LOVE on 05/02/19 1015 Cholecalciferol (Vitamin D3) 1,000 Unit Capsule, 2,000 UNIT PO DAILY, (Reported) TAKES 2 (1,000 UNITS) CAPSULES Folic Acid 1 Mg Tablet, 1 MG PO DAILY, (Reported) Golimumab 100 Mg/1 Ml Syringe, 200 MG SQ EVERY 8 WEEKS, (Reported) Methotrexate Tablet 2.5 Mg Tablet, 25 MG PO WEDNESDAY, (Reported) TAKES 10 (2.5MG) TABLETS Nabumetone 750 Mg Tablet, 1,500 MG PO DAILY, (Reported) TAKES 2 (750MG) TABLETS Patient Home Medication List Home Medication List Reviewed: Yes Review of Systems Review of Systems Constitutional: no symptoms reported Eyes: No Symptoms Reported Ears, Nose, Mouth, Throat: no symptoms reported Respiratory: no symptoms reported Cardiovascular: no symptoms reported Gastrointestinal: no symptoms reported Genitourinary: no symptoms reported Musculoskeletal: see HPI Skin: no symptoms reported Psychiatric/Neurological: See HPI Past Cqqiwlf-Vazxxo-Ahsfcz Hx Past Med/Social Hx: Reviewed Nursing Past Med/Soc Hx Patient Social History Alcohol Use: Denies Use Smoking Status: Never a Smoker 2nd Hand Smoke Exposure: No Recent Infectious Disease Expo: No Recent Hopitalizations: No Immunizations Up To Date Tetanus Booster (TDap): Unknown Date of Pneumonia Vaccine: Oct 06, 2018 Seasonal Allergies Seasonal Allergies: No Past Medical History Surgeries: Yes (JAW SURGERY 17YRS AGO) Abdominal Respiratory: Yes (THIS ADMISSION 05/23/17) Pneumonia Cardiac: Yes (HAD STRESS TEST IN Nov, WAS OK) High Cholesterol Neurological: No : No Reproductive Disorders: No Female Reproductive Disorders: Denies Sexually Transmitted Disease: No HIV/AIDS: No Genitourinary: No Gastrointestinal: No Musculoskeletal: Yes Arthritis, Rheumatoid Arthritis Endocrine: No HEENT: No Loss of Vision: Denies Hearing Impairment: Denies Cancer: No Psychosocial: No Integumentary: No Blood Disorders: No Adverse Reaction/Blood Tranf: No Family Medical History Cardiovascular disease 19 FATHER FH: breast cancer 19 MOTHER FH: non-Hodgkin's lymphoma G8 BROTHER FHx: rheumatoid arthritis G8 SISTER Heart murmur Heart Disease, Cancer, Other Conditions/Hx Physical Exam Vital Signs Vital Signs - First Documented 03/27/21 09:25 Temp 36.9 Pulse 99 Resp 18 B/P (MAP) 141/97 (112) Pulse Ox 98 O2 Delivery Room Air Capillary Refill : Less Than 3 Seconds Height, Weight, BMI Height: 5'10.00" Weight: 210lbs. 6.4oz. 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 Stated the wrong month.) Skin: normal color, warm/dry Jasmyn Coma Score Best Eye Response: (4) Open Spontaneously Best Verbal Response: (5) Oriented Best Motor Response: (6) Obeys Commands Jasmyn Total: 15 Progress/Results/Core Measures Results/Orders Lab Results Laboratory Tests Test 03/27/21 09:37 03/27/21 10:53 Range/Units White Blood Count 10.8 4.3-11.0 10^3/uL Red Blood Count 3.80 3.80-5.11 10^6/uL Hemoglobin 12.0 11.5-16.0 g/dL Hematocrit 36 35-52 % Mean Corpuscular Volume 95 80-99 fL Mean Corpuscular Hemoglobin 32 25-34 pg Mean Corpuscular Hemoglobin Concent 33 32-36 g/dL Red Cell Distribution Width 14.4 10.0-14.5 % Platelet Count 253 130-400 10^3/uL Mean Platelet Volume 10.2 9.0-12.2 fL Immature Granulocyte % (Auto) 0 % Neutrophils (%) (Auto) 76 H 42-75 % Lymphocytes (%) (Auto) 12 12-44 % Monocytes (%) (Auto) 11 0-12 % Eosinophils (%) (Auto) 1 0-10 % Basophils (%) (Auto) 0 0-10 % Neutrophils # (Auto) 8.2 H 1.8-7.8 10^3/uL Lymphocytes # (Auto) 1.3 1.0-4.0 10^3/uL Monocytes # (Auto) 1.1 H 0.0-1.0 10^3/uL Eosinophils # (Auto) 0.1 0.0-0.3 10^3/uL Basophils # (Auto) 0.0 0.0-0.1 10^3/uL Immature Granulocyte # (Auto) 0.0 0.0-0.1 10^3/uL Sodium Level 132 L 135-145 MMOL/L Potassium Level 3.5 L 3.6-5.0 MMOL/L Chloride Level 98 98-107 MMOL/L Carbon Dioxide Level 24 21-32 MMOL/L Anion Gap 10 5-14 MMOL/L Blood Urea Nitrogen 9 7-18 MG/DL Creatinine 0.86 0.60-1.30 MG/DL Estimat Glomerular Filtration Rate > 60 BUN/Creatinine Ratio 10 Glucose Level 109 H 70-105 MG/DL Calcium Level 9.1 8.5-10.1 MG/DL Corrected Calcium 9.4 8.5-10.1 MG/DL Magnesium Level 1.9 1.6-2.4 MG/DL Total Bilirubin 0.8 0.1-1.0 MG/DL Aspartate Amino Transf (AST/SGOT) 24 5-34 U/L Alanine Aminotransferase (ALT/SGPT) 15 0-55 U/L Alkaline Phosphatase 92 40-136 U/L C-Reactive Protein High Sensitivity 4.20 H 0.00-0.50 MG/DL Total Protein 7.0 6.4-8.2 GM/DL Albumin 3.6 3.2-4.5 GM/DL TSH [place] Testing 1.33 0.35-4.94 UIU/ML Urine Color YELLOW Urine Clarity CLEAR Urine pH 6.0 5-9 Urine Specific [place] 1.015 L 1.016-1.022 Urine Protein NEGATIVE NEGATIVE Urine Glucose (UA) NEGATIVE NEGATIVE Urine Ketones NEGATIVE NEGATIVE Urine Nitrite NEGATIVE NEGATIVE Urine Bilirubin NEGATIVE NEGATIVE Urine Urobilinogen 0.2 < = 1.0 MG/DL Urine Leukocyte Esterase NEGATIVE NEGATIVE Urine RBC (Auto) NEGATIVE NEGATIVE Urine RBC NONE /HPF Urine WBC RARE /HPF Urine Squamous Epithelial Cells RARE /HPF Urine Crystals NONE /LPF Urine Bacteria NEGATIVE /HPF Urine Casts NONE /LPF Urine Mucus NEGATIVE /LPF Urine Culture Indicated NO My Orders Orders - BLANCA ANAYA MD Cbc With Automated Diff (03/27/21 09:36) Comprehensive Metabolic Panel (03/27/21 09:36) Hs C Reactive Protein (03/27/21 09:36) Magnesium (03/27/21 09:36) Ua Culture If Indicated (03/27/21 09:36) Ct Head/Cervical Spine Wo (03/27/21 09:36) Ed Iv/Invasive Line Start (03/27/21 09:36) Wrist, Right, 3 Views Or More (03/27/21 09:36) Thyroid Analyzer (03/27/21 09:41) Mri Cervical Spine W/O Contras (03/27/21 10:44) Vital Signs/I&O 03/27/21 03/27/21 09:25 14:07 Temp 36.9 Pulse 99 80 Resp 18 18 B/P (MAP) 141/97 (112) 134/83 Pulse Ox 98 96 O2 Delivery Room Air Room Air Blood Pressure Mean: 112 Progress Progress Note : Progress Note Laboratory and urine evaluation was unremarkable. CT of the head showed no acute injuries. Ventricles were disproportionately large in a similar appearance to the prior MRI. CT of the cervical spine demonstrated significant degenerative change. This was discussed with Dr. Lakhani. MRI of the cervical spine was ordered to follow. Spinal stenosis was noted. Patient's symptoms may be related to NPH and or cervical spinal stenosis as suggested by imaging studies. Patient had previously halted her neurologic work-up because she did not want to entertain the thought of lumbar puncture for diagnostic purposes or surgery for treatment purposes. However, she does acknowledge at this time that she would consider those things if there was any hope of restoring her memory and cognitive functions. For the time being, there is no neurologic emergency that requires admission or transfer. Patient can continue her work-up in the outpatient setting. I did discuss this case with Dr. Kong while patient was in the ER. Patient was encouraged to follow-up with her neurologist and a neurosurgeon as soon as possible. Patient was able to walk and transfer to a commode with some assistance. Diagnostic Imaging Diagonstic Imaging: Xray Plain Films/CT/US/NM/MRI: other (Right wrist) Comments Wrist x-ray viewed by me and report reviewed. See report below: NAME: BAKARI CORTEZ [facility] REC#: [id number] PT STATUS: REG ER : 1950 PHYSICIAN: BLANCA ANAYA MD ADMIT DATE: 03/27/21/ER Draft Date of Exam:03/27/21 WRIST, RIGHT, 3 VIEWS OR MORE INDICATION: Wrist pain, fall COMPARISON: None available TECHNIQUE: 3 radiographs the right wrist dated 03/27/2021. FINDINGS: No acute fracture or dislocation. No destructive osseous process. Carpal alignment is well maintained. Scattered degenerative changes are present, including severe degenerative changes involving the 1st CMC joint with severe joint space narrowing and osteophyte formation. Mild narrowing of the radiocarpal joints. No suspicious radiopaque foreign body. IMPRESSION: No acute osseous abnormality with scattered degenerative changes, including advanced degenerative changes of the 1st CMC joint. Dictated on workstation # [id number] Dict: 03/27/21 0952 Trans: 03/27/21 0956 CVB Interpreted by: ANKUR ESCALANTE MD Diagonstic Imaging: CT Plain Films/CT/US/NM/MRI: c-spine Comments CT head and C-spine viewed by me and report reviewed. See report below: NAME: BAKARI CORTEZ [facility] REC#: [id number] PT STATUS: REG ER : 1950 PHYSICIAN: BLANCA ANAYA MD ADMIT DATE: 03/27/21/ER Draft Date of Exam:03/27/21 CT HEAD/CERVICAL SPINE WO PROCEDURE: CT head and CT cervical spine without contrast. TECHNIQUE: Multiple contiguous axial images were obtained through the brain and cervical spine without the use of intravenous contrast. Sagittal and coronal reformations through the cervical spine were then performed. Auto Exposure Controls were utilized during the CT exam to meet ALARA standards for radiation dose reduction. INDICATION: Fall. Correlation is made to prior head CT from 04/29/2019. Ventricles and sulci are prominent consistent with cerebral atrophy. No sulcal effacement or midline shift is identified. No acute intra-axial or extra-axial hemorrhage is detected. Cisterns are patent. Visualized paranasal sinuses are clear. IMPRESSION: No acute intracranial process is detected. CT CERVICAL SPINE: Alignment is normal. Severe multilevel degenerative disc disease is noted with significant disc space narrowing and marginal spurring. Prevertebral tissues are within normal limits. Odontoid is intact. There is multilevel facet arthropathy. IMPRESSION: Severe cervical spondylosis. No acute bony abnormality is detected. Dictated on workstation # [id number] Dict: 03/27/21 1000 Trans: 03/27/21 1005 HARRIS Interpreted by: SHANNAN LAKHANI MD Diagonstic Imaging: MRI Plain Films/CT/US/NM/MRI: c-spine Comments NAME: BAKARI CORTEZ [facility] REC#: [id number] PT STATUS: DEP ER : 1950 PHYSICIAN: BLANCA ANAYA MD ADMIT DATE: 03/27/21/ER Signed Date of Exam:03/27/21 MRI CERVICAL SPINE W/O CONTRAS CLINICAL INDICATION: Patient has been falling. EXAM: MRI of the cervical spine performed without IV contrast. Sequences include sagittal T2, sagittal T1, sagittal T2 fat-sat, and axial T2. COMPARISON: CT scan of the cervical spine without contrast dated 03/27/2021. FINDINGS: There is motion artifact limiting evaluation of the spinal cord and portions of the cervical spine. Motion artifact greatly limits evaluation of the axial sequences. There is no acute cervical spine fracture. Limited visualization of the posterior fossa shows no significant abnormality. There is no significant paraspinal soft tissue abnormality. There are mild to moderately hypertrophic spurs involving the cervical spine and facet arthropathy/hypertrophy. C1-C2: There are degenerative spurs involving the atlantoodontoid interval anteriorly. There is ligamentum flavum buckling. There is mild central canal narrowing. C2-C3: There is bilateral facet arthropathy and ligamentum flavum buckling. There is a small posterior disk bulge. There is moderate central canal stenosis. There is no significant neural foramen narrowing. C3-C4: There is a diffuse disk bulge with small bilateral uncinate spurs. There is bilateral facet arthropathy/hypertrophy and ligamentum flavum buckling. There is severe central canal stenosis. There appears to be at least moderate left neural foramen narrowing and mild right neural foramen narrowing. Motion artifact limits evaluation of the neural foramen regions. C4-C5: There is a diffuse disk bulge with bdrh-ks-cyitmjsx loss of disk space height. There is bilateral facet arthropathy/hypertrophy and ligamentum flavum buckling. There is severe central canal stenosis with localized deformity of the cervical cord. Evaluation for cord signal abnormality is limited. There is concern for some degree of neural foramen narrowing which is obscured by motion artifact. C5-C6: There is diffuse disk bulge with moderate loss of disk space height. There is mild central canal narrowing. There is bilateral facet arthropathy with no significant neural foramen narrowing as visualized. C6-C7: There is diffuse disk bulge with lshj-or-pnkbebjd loss of disk space height. There is minimal central canal narrowing. The neural foramina regions are obscured by motion artifact. There is bilateral facet arthropathy. C7-T1: Again seen roughly 4 mm of grade 1 anterolisthesis of C7 on T1. There is a diffuse disk bulge with slight uncovering of the posterior aspect of the disc. There is mild central canal narrowing. The neural foramina regions are obscured by motion artifact, but there is concern for at least cggv-vk-pjjfexac narrowing. There is bilateral facet arthropathy/hypertrophy. IMPRESSION: 1: There is significant motion artifact which limits evaluation of cervical spinal cord and cervical spine anatomical detail. Unable to evaluate if there is cord signal abnormality. CT cervical myelogram may be more helpful if there is continued need to evaluate bony detail and the central canal. 2: There is ofyzhrbs-nj-jbygeu multilevel cervical spine degenerative disk disease which is worse at the C3-C4 and C4-C5 levels which is described above. 3: There is severe central canal stenosis at the C4-C5 and C5-C6 levels due to diffuse disk bulge, ligamentum flavum buckling and facet arthropathy. 4: There is multilevel neural foramen narrowing which is difficult to accurately evaluate due to motion artifact. Dictated by: Dictated on workstation # [id number] Dict: 03/27/21 1229 Trans: 03/27/21 1726 [facility] [id number] Interpreted by: CLIVE AGUILAR MD Electronically signed by: CLIVE AGUILAR MD 03/27/21 1726 Reviewed: Reviewed by Me Departure Impression Primary Impression: Frequent falls Additional Impressions: Abnormal gait Urinary incontinence Qualified Codes: R32 - Unspecified urinary incontinence Abnormal CT scan, head Cervical spinal stenosis Disposition: 01 HOME, SELF-CARE Condition: Stable Departure-Patient Inst. Decision time for Depature: 13:35 Referrals: JACKY KONG MD (PCP/Family) Primary Care Physician Patient Instructions: Spinal Stenosis Add. Discharge Instructions: Your frequent falls and abnormal gait as well as your memory and bladder control issues may be at least in part due to normal pressure hydrocephalus and/or cervical spinal stenosis (narrowing of the spinal column). It would be beneficial to complete your work-up with the neurologist to determine if surgical intervention could improve your functional status and memory. Please visit with Dr. Kong about establishing again with a neurologist and/or brennen bro. A copy of your imaging studies is being provided for you. Please take it with you to any neurology or neurosurgical consultations. Walk with a walker and preferably with assistance. Call with questions or concerns. Return to the emergency room if you have worsening symptoms. All discharge instructions reviewed with patient and/or family. Voiced understanding. Copy Copies To 1: JACKY KONG MD, JOSHUA T MD March 27, 2021 10:08
[2021-03-27 11:02] LABS: BILIRUBIN,URINE NEGATIVE (NEGATIVE); CLARITY,URINE CLEAR; COLOR,URINE YELLOW; GLUCOSE, URINE (UA) NEGATIVE (NEGATIVE); KETONES,URINE NEGATIVE (NEGATIVE); LEUKOCYTE ESTERASE ,URINE NEGATIVE (NEGATIVE); NITRITE,URINE NEGATIVE (NEGATIVE); PROTEIN,URINE NEGATIVE (NEGATIVE)
[2021-03-27 11:09] LABS: BACTERIA,URINE NEGATIVE /HPF; SQUAMOUS EPITHELIAL CELL,UR RARE /HPF; WBC,URINE RARE /HPF
--- NOTE | 2021-03-27 12:43 | Diagnostic Imaging Report ---
CLINICAL INDICATION: Patient has been falling. EXAM: MRI of the cervical spine performed without IV contrast. Sequences include sagittal T2, sagittal T1, sagittal T2 fat-sat, and axial T2. COMPARISON: CT scan of the cervical spine without contrast dated 03/27/2021. FINDINGS: There is motion artifact limiting evaluation of the spinal cord and portions of the cervical spine. Motion artifact greatly limits evaluation of the axial sequences. There is no acute cervical spine fracture. Limited visualization of the posterior fossa shows no significant abnormality. There is no significant paraspinal soft tissue abnormality. There are mild to moderately hypertrophic spurs involving the cervical spine and facet arthropathy/hypertrophy. C1-C2: There are degenerative spurs involving the atlantoodontoid interval anteriorly. There is ligamentum flavum buckling. There is mild central canal narrowing. C2-C3: There is bilateral facet arthropathy and ligamentum flavum buckling. There is a small posterior disk bulge. There is moderate central canal stenosis. There is no significant neural foramen narrowing. C3-C4: There is a diffuse disk bulge with small bilateral uncinate spurs. There is bilateral facet arthropathy/hypertrophy and ligamentum flavum buckling. There is severe central canal stenosis. There appears to be at least moderate left neural foramen narrowing and mild right neural foramen narrowing. Motion artifact limits evaluation of the neural foramen regions. C4-C5: There is a diffuse disk bulge with rcev-vr-snwvhcjz loss of disk space height. There is bilateral facet arthropathy/hypertrophy and ligamentum flavum buckling. There is severe central canal stenosis with localized deformity of the cervical cord. Evaluation for cord signal abnormality is limited. There is concern for some degree of neural foramen narrowing which is obscured by motion artifact. C5-C6: There is diffuse disk bulge with moderate loss of disk space height. There is mild central canal narrowing. There is bilateral facet arthropathy with no significant neural foramen narrowing as visualized. C6-C7: There is diffuse disk bulge with vasm-ax-dikjffhj loss of disk space height. There is minimal central canal narrowing. The neural foramina regions are obscured by motion artifact. There is bilateral facet arthropathy. C7-T1: Again seen roughly 4 mm of grade 1 anterolisthesis of C7 on T1. There is a diffuse disk bulge with slight uncovering of the posterior aspect of the disc. There is mild central canal narrowing. The neural foramina regions are obscured by motion artifact, but there is concern for at least hoaf-ac-sffmfxjp narrowing. There is bilateral facet arthropathy/hypertrophy. IMPRESSION: 1: There is significant motion artifact which limits evaluation of cervical spinal cord and cervical spine anatomical detail. Unable to evaluate if there is cord signal abnormality. CT cervical myelogram may be more helpful if there is continued need to evaluate bony detail and the central canal. 2: There is zhrjzwes-wr-ghwtch multilevel cervical spine degenerative disk disease which is worse at the C3-C4 and C4-C5 levels which is described above. 3: There is severe central canal stenosis at the C4-C5 and C5-C6 levels due to diffuse disk bulge, ligamentum flavum buckling and facet arthropathy. 4: There is multilevel neural foramen narrowing which is difficult to accurately evaluate due to motion artifact. Dictated by: Dictated on workstation # [id number]
[2021-03-27 14:07] VITALS: BP 134/83
== END 2021-03-27 14:07 | disposition home or self-care (01) ==
LOC: EDUNIT# 09:21 → ER 09:23
DX: S00.83XA Contusion of other part of head, initial encounter (principal); M25.531 Pain in right wrist; R41.0 Disorientation, unspecified; M48.02 Spinal stenosis, cervical region; R32 Unspecified urinary incontinence; R29.6 Repeated falls; R93.0 Abnormal findings on diagnostic imaging of skull and head, not elsewhere classified; M06.9 Rheumatoid arthritis, unspecified; E78.00 Pure hypercholesterolemia, unspecified; Z79.82 Long term (current) use of aspirin; Z79.899 Other long term (current) drug therapy; W19.XXXA Unspecified fall, initial encounter
CPT/HCPCS: 36415; 51701; 70450; 72125; 72141; 73110; 80053; 81000; 83735; 84443; 85025; 86141

== ENCOUNTER → 2021-09-16 | Outpatient (CLI) | payer MEDICARE, MEDICAID ==
--- NOTE | 2021-09-16 14:16 | Diagnostic Imaging Report ---
INDICATION: Asymptomatic postmenopausal female COMPARISON: DEXA 01/03/2003 FINDINGS: AP Spine L1-L4: [BMD (g/cm2): 1.063] [T-Score: -1.1] [Z-Score: 0.9] [BMD Previous: 1.261] [BMD % Change: -15.7] LT Hip Neck: [BMD (g/cm2): 0.749] [T-Score: -2.1] [Z-Score: 0.0] LT Hip Total: [BMD (g/cm2):0.878] [T-Score:-1.0] [Z-Score: 0.8] [BMD Previous: 1.051] [BMD % Change: -16.5] RT Hip Neck: [BMD (g/cm2):0.854] [T-Score:-1.3] [Z-Score:0.7] RT Hip Total: [BMD (g/cm2):0.919] [T-score:-0.7] [Z-Score:1.2] [BMD Previous:1.042] [BMD % Change:-11.8] World Health Organization criteria for BMD interpretation classify patients as Normal (T-score at or above -1.0), Osteopenic (T-score between -1.0 and -2.5) or Osteoporotic (T-score at or below -2.5). LIMITATIONS AND MODIFICATION: None. FRACTURE RISK (FRAX SCORE): The ten year probability of (%): Major Osteoporotic Fracture: [14.0] Hip Fracture: [4.1] IMPRESSION: 1. Osteopenia (Low bone mass). 2. Bone mineral density has decreased, as detailed above. 3. See below National Osteoporosis Foundation guidelines on when to potentially initiate pharmacologic therapy. Based on the National Osteoporosis Foundation Guidelines, pharmacologic treatment should be initiated in any of the following, unless clinical conditions suggest otherwise: * Any patient with prior fragility fracture of the hip or vertebrae. A spine fracture indicates 5X risk for subsequent spine fracture and 2X risk for subsequent hip fracture. * Osteoporosis (T-score <-2.5). * Postmenopausal women and men age 50 and older with low bone mass/osteopenia (T-score between -1.0 and -2.5) by DXA and 10-year major osteoporotic fracture greater than 20% or a 10-year probability of hip fracture greater than 3%. These fracture risks are supplied above in the FRAX score, if applicable. * Clinician judgement and/or patient preferences may indicate treatment for people with 10-year fracture probabilities above or below these levels. Dictated by: Dictated on workstation # [id number]
--- NOTE | 2021-09-16 15:14 | Diagnostic Imaging Report ---
INDICATION: Routine screening. COMPARISON is made with prior mammograms 07/07/2019 and 04/07/2018. 2-D and 3-D bilateral screening mammography was performed with CAD. Both breasts are heterogeneously dense, limiting the sensitivity of mammography. Cardiac loop recorder overlies the left breast. No mass or malignant-appearing microcalcifications are seen. Axillae are unremarkable. IMPRESSION: BI-RADS Category 1 No mammographic features suspicious for malignancy are identified. ACR BI-RADS Category 1: Negative. Result letter will be mailed to the patient. Note: At least 10% of breast cancer is not imaged by mammography. Dictated by: Dictated on workstation # [id number]
== END ==
LOC: RAD 12:45
PROVIDERS: ATTEND Family Medicine
DX: Z12.31 Encounter for screening mammogram for malignant neoplasm of breast (principal); M85.80 Other specified disorders of bone density and structure, unspecified site; Z78.0 Asymptomatic menopausal state; Z79.51 Long term (current) use of inhaled steroids
CPT/HCPCS: 77063; 77067; 77080

== ENCOUNTER 2021-11-01 08:20 | Emergency (ER) | payer MEDICARE, MEDICAID ==
[~2021-11-01] VITALS: Ht 172 cm; Wt 100.9 kg
[2021-11-01 08:20] VITALS: BP 149/94
[2021-11-01] MEDS ORDERED: LACTATED RINGERS 1,000 ML IV ONE (08:30)
--- NOTE | 2021-11-01 08:46 | ED General ---
General Chief Complaint: General Problems/Pain Stated Complaint: DIARRHEA Source of Information: Patient History of Present Illness Date Seen by Provider: Nov 01, 2021 Time Seen by Provider: 08:20 Initial Comments PT ARRIVES VIA POV FROM [facility] C/O DIARRHEA FOR OVER 2 WEEKS STATES IT IS GETTING BETTER NO BLACK/BLOODY/TARRY STOOLS NO ABDOMINAL PAIN NO NAUSEA/VOMITING NO FEVER HAS BEEN URINATING NORMALLY HAS BEEN EATING AND DRINKING STATES HER RIGHT HIP HAS BEEN HURTING ALL WEEK, AND TODAY WHEN SHE TRIED TO GET UP SHE HAD SEVERE PAIN IN RIGHT HIP, SO EMS WAS CALLED DENIES ANY INJURY TO HIP DENIES ANY PRIOR PROBLEMS WITH HIP HAS NOT TAKEN ANYTHING FOR PAIN PCP: DR. ROGERS Allergies and Home Medications Allergies Coded Allergies: No Known Drug Allergies (Unverified , 09/13/14) Patient Home Medication List Home Medication List Reviewed: Yes Amlodipine Besylate (Amlodipine Besylate) 5 Mg Tablet, 5 MG PO DAILY Prescribed by: REUBEN LOVE on 05/02/19 1015 Ascorbic Acid (Ascorbic Acid) 500 Mg Tablet, 500 MG PO DAILY, (Reported) Entered as Reported by: GONZALEZ LEON on 05/01/19 1520 Aspirin (Aspirin EC) 325 Mg Tablet.dr, 325 MG PO DAILY Prescribed by: REUBEN LOVE on 05/02/19 1015 Atorvastatin Calcium (Atorvastatin Calcium) 80 Mg Tablet, 80 MG PO HS Prescribed by: REUBEN LOVE on 05/02/19 1015 Cholecalciferol (Vitamin D3) (Vitamin D3) 1,000 Unit Capsule, 2,000 UNIT PO DAILY, (Reported) Entered as Reported by: GONZALEZ LEON on 05/24/17 1059 Folic Acid (Folic Acid) 1 Mg Tablet, 1 MG PO DAILY, (Reported) Entered as Reported by: GONZALEZ LEON on 05/24/17 1059 Golimumab (Simponi) 100 Mg/1 Ml Syringe, 200 MG SQ EVERY 8 WEEKS, (Reported) Entered as Reported by: GONZALEZ LEON on 05/01/19 1526 Methotrexate Tablet (Methotrexate Tablet) 2.5 Mg Tablet, 25 MG PO WEDNESDAY, (Reported) Entered as Reported by: GONZALEZ LEON on 05/24/17 1059 Nabumetone (Nabumetone) 750 Mg Tablet, 1,500 MG PO DAILY, (Reported) Entered as Reported by: GONZALEZ LEON on 05/24/17 1059 Review of Systems Review of Systems Constitutional: no symptoms reported Respiratory: no symptoms reported Cardiovascular: no symptoms reported Gastrointestinal: see HPI Genitourinary: no symptoms reported Musculoskeletal: see HPI Skin: no symptoms reported Psychiatric/Neurological: No Symptoms Reported Hematologic/Lymphatic: No Symptoms Reported Immunological/Allergic: no symptoms reported Past Ppfozom-Yccwcy-Drzyln Hx Immunizations Up To Date Tetanus Booster (TDap): Unknown Seasonal Allergies Seasonal Allergies: No Past Medical History Surgeries: Yes (JAW SURGERY 17YRS AGO) Abdominal Respiratory: Yes (THIS ADMISSION 05/23/17) Pneumonia Cardiac: Yes (HAD STRESS TEST IN Nov, WAS OK) High Cholesterol Neurological: No Reproductive Disorders: No Female Reproductive Disorders: Denies Sexually Transmitted Disease: No HIV/AIDS: No Genitourinary: No Gastrointestinal: No Musculoskeletal: Yes Arthritis, Rheumatoid Arthritis Endocrine: No HEENT: No Loss of Vision: Denies Hearing Impairment: Denies Cancer: No Psychosocial: No Integumentary: No Blood Disorders: No Adverse Reaction/Blood Tranf: No Family Medical History Cardiovascular disease 19 FATHER FH: breast cancer 19 MOTHER FH: non-Hodgkin's lymphoma G8 BROTHER FHx: rheumatoid arthritis G8 SISTER Heart murmur Heart Disease, Cancer, Other Conditions/Hx Physical Exam Vital Signs Vital Signs - First Documented 11/01/21 08:20 Temp 36.1 Pulse 86 Resp 18 B/P (MAP) 149/94 (112) Capillary Refill : Height, Weight, BMI Height: 5'10.00" Weight: 210lbs. 6.4oz. 95.953580vx; 32.00 BMI Method:Stated General Appearance: No Apparent Distress, WD/WN, Other (DOES NOT APPEAR ILL OR TO BE IN ANY DISCOMFORT OR DISTRESS) Neck: Normal Inspection Respiratory: Normal Breath Sounds, No Accessory Muscle Use, No Respiratory Distress Cardiovascular: Regular Rate, Rhythm, No Edema, No Murmur Gastrointestinal: Normal Bowel Sounds, No Organomegaly, Non Tender, Soft Back: Normal Inspection, No CVA Tenderness, No Vertebral Tenderness Extremity: Normal Range of Motion (BUT HAS PAIN WITH WEIGHT BEARING), No Pedal Edema, Other (RIGHT HIP TENDERNESS) Neurologic/Psychiatric: Alert, Oriented x3, No Motor/Sensory Deficits Skin: Normal Color, Warm/Dry; No Rash Progress/Results/Core Measures Suspected Sepsis SIRS Temperature: Pulse: Respiratory Rate: Laboratory Tests 11/01/21 09:45: White Blood Count 7.8 Blood Pressure / Mean: Laboratory Tests 11/01/21 09:45: Creatinine 0.91, Platelet Count 299, Total Bilirubin 0.5 Results/Orders Lab Results Laboratory Tests Test 11/01/21 09:45 Range/Units White Blood Count 7.8 4.3-11.0 10^3/uL Red Blood Count 4.01 3.80-5.11 10^6/uL Hemoglobin 12.5 11.5-16.0 g/dL Hematocrit 38 35-52 % Mean Corpuscular Volume 95 80-99 fL Mean Corpuscular Hemoglobin 31 25-34 pg Mean Corpuscular Hemoglobin Concent 33 32-36 g/dL Red Cell Distribution Width 13.3 10.0-14.5 % Platelet Count 299 130-400 10^3/uL Mean Platelet Volume 9.2 9.0-12.2 fL Immature Granulocyte % (Auto) 0 % Neutrophils (%) (Auto) 59 42-75 % Lymphocytes (%) (Auto) 22 12-44 % Monocytes (%) (Auto) 14 H 0-12 % Eosinophils (%) (Auto) 5 0-10 % Basophils (%) (Auto) 0 0-10 % Neutrophils # (Auto) 4.6 1.8-7.8 10^3/uL Lymphocytes # (Auto) 1.7 1.0-4.0 10^3/uL Monocytes # (Auto) 1.1 H 0.0-1.0 10^3/uL Eosinophils # (Auto) 0.4 H 0.0-0.3 10^3/uL Basophils # (Auto) 0.0 0.0-0.1 10^3/uL Immature Granulocyte # (Auto) 0.0 0.0-0.1 10^3/uL Sodium Level 135 135-145 MMOL/L Potassium Level 4.1 3.6-5.0 MMOL/L Chloride Level 101 98-107 MMOL/L Carbon Dioxide Level 24 21-32 MMOL/L Anion Gap 10 5-14 MMOL/L Blood Urea Nitrogen 13 7-18 MG/DL Creatinine 0.91 0.60-1.30 MG/DL Estimat Glomerular Filtration Rate 61 BUN/Creatinine Ratio 14 Glucose Level 106 H 70-105 MG/DL Calcium Level 8.9 8.5-10.1 MG/DL Corrected Calcium 9.2 8.5-10.1 MG/DL Magnesium Level 2.2 1.6-2.4 MG/DL Total Bilirubin 0.5 0.1-1.0 MG/DL Aspartate Amino Transf (AST/SGOT) 21 5-34 U/L Alanine Aminotransferase (ALT/SGPT) 11 0-55 U/L Alkaline Phosphatase 94 40-136 U/L Total Protein 7.6 6.4-8.2 GM/DL Albumin 3.6 3.2-4.5 GM/DL My Orders Orders - MATT MACARIO DO Ed Iv/Invasive Line Start (11/01/21 08:23) Monitor-Rhythm Ecg Trace Only (11/01/21 08:23) Cbc With Automated Diff (11/01/21 08:23) Comprehensive Metabolic Panel (11/01/21 08:23) Magnesium (11/01/21 08:23) Pelvis With Right Hip 2-3views (11/01/21 08:23) Ed Iv/Invasive Line Start (11/01/21 08:23) Ed Iv/Invasive Line Start (11/01/21 08:23) Lactated Ringers (Lr 1000 Ml Iv Solution (11/01/21 08:30) Ketorolac Injection (Toradol Injection) (11/01/21 10:15) Ua Culture If Indicated (11/01/21 10:24) Medications Given in ED Current Medications Medications Dose Ordered Sig/Joi Route Start Time Stop Time Status Last Admin Dose Admin Ketorolac Tromethamine 30 mg ONCE ONCE IVP 11/01/21 10:15 11/01/21 10:16 DC 11/01/21 10:25 30 MG Lactated Ringer's 1,000 ml @ 0 mls/hr Q0M ONCE IV 11/01/21 08:30 11/01/21 08:31 DC 11/01/21 09:45 1,000 MLS/HR Vital Signs/I&O 11/01/21 08:20 Temp 36.1 Pulse 86 Resp 18 B/P (MAP) 149/94 (112) Capillary Refill : Progress Note : Progress Note UNEVENTFUL ER STAY GIVEN IV FLUIDS AND TORADOL FOR HIP PAIN OBSERVED IN ER, NO DIARRHEA OR ANY OTHER COMPLAINTS AT ANY TIME. Diagnostic Imaging Comments XRAYS PELVIS/RIGHT HIP--PER RADIOLOGIST REPORT AT 0925 FINDINGS: There are no findings of hip dislocation. There is no evidence of a proximal femoral fracture. There is no diastases of the pubic symphysis or SI joints. The pelvic ring appears intact. There is minimal osteoarthritic joint space narrowing within the hips. IMPRESSION: 1. Minimal osteoarthritic joint space narrowing within the hips. No dislocation, fracture, diastases or suspicious bone lesion demonstrated. Reviewed: Reviewed by Me Departure Impression Primary Impression: Right hip pain Additional Impression: Diarrhea Disposition: XF SNF Condition: Stable Departure-Patient Inst. Decision time for Depature: 11:51 Referrals: JACKY ROGERS MD (PCP/Family) Primary Care Physician Patient Instructions: Hip Pain, Diarrhea, Adult ED Add. Discharge Instructions: CLEAR LIQUIDS--WATER, BROTH, JELLO, GATORADE BRATS DIET--BANANAS, RICE, APPLESAUCE, TOAST, SALTINES CONTINUE YOUR REGULAR MEDICATIONS PRESCRIBED FOLLOW UP WITH YOUR DR ON WEDNESDAY FOR FURTHER CARE, RETURN TO ER IF WORSE All discharge instructions reviewed with patient and/or family. Voiced understanding. MATT MACARIO DO Nov 01, 2021 08:46
--- NOTE | 2021-11-01 09:23 | Diagnostic Imaging Report ---
INDICATION: Right hip pain. FINDINGS: There are no findings of hip dislocation. There is no evidence of a proximal femoral fracture. There is no diastases of the pubic symphysis or SI joints. The pelvic ring appears intact. There is minimal osteoarthritic joint space narrowing within the hips. IMPRESSION: 1. Minimal osteoarthritic joint space narrowing within the hips. No dislocation, fracture, diastases or suspicious bone lesion demonstrated. Dictated by: Dictated on workstation # [id number]
[2021-11-01 09:52] LABS: BASOPHILS % (AUTO) 0 % (0-10); EOSINOPHILS # (AUTO) 0.4 10^3/uL (0.0-0.3); EOSINOPHILS % (AUTO) 5 % (0-10); HEMATOCRIT 38 % (35-52); HEMOGLOBIN 12.5 g/dL (11.5-16.0); LYMPHOCYTES # (AUTO) 1.7 10^3/uL (1.0-4.0); LYMPHOCYTES % (AUTO) 22 % (12-44); MEAN CORPUSCULAR HEMOGLOBIN 31 pg (25-34); MEAN CORPUSCULAR HGB CONC 33 g/dL (32-36); MEAN CORPUSCULAR VOLUME 95 fL (80-99); MEAN PLATELET VOLUME 9.2 fL (9.0-12.2); MONOCYTES # (AUTO) 1.1 10^3/uL (0.0-1.0); MONOCYTES % (AUTO) 14 % (0-12); NEUTROPHILS # (AUTO) 4.6 10^3/uL (1.8-7.8); NEUTROPHILS % (AUTO) 59 % (42-75); PLATELET COUNT 299 10^3/uL (130-400); WHITE BLOOD COUNT 7.8 10^3/uL (4.3-11.0)
[2021-11-01 10:09] LABS: ALBUMIN 3.6 GM/DL (3.2-4.5); POTASSIUM 4.1 MMOL/L (3.6-5.0)
[2021-11-01 10:11] LABS: CALCIUM 8.9 MG/DL (8.5-10.1)
[2021-11-01 10:12] LABS: TOTAL PROTEIN 7.6 GM/DL (6.4-8.2)
[2021-11-01 10:14] LABS: BILIRUBIN,TOTAL 0.5 MG/DL (0.1-1.0)
[2021-11-01 10:15] LABS: CREATININE SERUM 0.91 MG/DL (0.60-1.30)
[2021-11-01] MEDS ORDERED: KETOROLAC 30 MG/ML VIAL IVP ONE (10:15)
[2021-11-01 10:19] LABS: MAGNESIUM 2.2 MG/DL (1.6-2.4)
== END 2021-11-01 12:16 ==
LOC: EDUNIT# 08:20 → ER 08:21
DX: R19.7 Diarrhea, unspecified (principal); M25.551 Pain in right hip; E78.00 Pure hypercholesterolemia, unspecified; M06.9 Rheumatoid arthritis, unspecified; Z79.82 Long term (current) use of aspirin; Z79.899 Other long term (current) drug therapy
CPT/HCPCS: 36415; 80053; 83735; 85025; 93041

== ENCOUNTER 2021-11-02 12:31 | Emergency (ER) | payer MEDICARE, MEDICAID ==
[~2021-11-02] VITALS: Ht 177.8 cm; Wt 100.9 kg
--- NOTE | 2021-11-02 12:45 | ED General ---
General Stated Complaint: FALL Source of Information: EMS, Retirement Records Exam Limitations: No Limitations (EVELIA PADGETT APRN) History of Present Illness Date Seen by Provider: Nov 02, 2021 Time Seen by Provider: 12:44 Initial Comments To ER by EMS from [facility] with reports of an unwitnessed fall in the bathroom. Not sure if she hurt herself or not. She has dementia. Timing/Duration: 1-3 Hours Severity: Moderate Associated Systoms: Denies Symptoms (EVELIA PADGETT APRN) Allergies and Home Medications Allergies Coded Allergies: No Known Drug Allergies (Unverified , 09/13/14) Patient Home Medication List Home Medication List Reviewed: Yes (EVELIA PADGETT APRN) Amlodipine Besylate (Amlodipine Besylate) 5 Mg Tablet, 5 MG PO DAILY Prescribed by: REUBEN LOVE on 05/02/19 1015 Ascorbic Acid (Ascorbic Acid) 500 Mg Tablet, 500 MG PO DAILY, (Reported) Entered as Reported by: GONZALEZ LEON on 05/01/19 1520 Aspirin (Aspirin EC) 325 Mg Tablet.dr, 325 MG PO DAILY Prescribed by: REUBEN LOVE on 05/02/19 1015 Atorvastatin Calcium (Atorvastatin Calcium) 80 Mg Tablet, 80 MG PO HS Prescribed by: REUBEN LOVE on 05/02/19 1015 Cholecalciferol (Vitamin D3) (Vitamin D3) 1,000 Unit Capsule, 2,000 UNIT PO DAILY, (Reported) Entered as Reported by: GONZALEZ LEON on 05/24/17 1059 Folic Acid (Folic Acid) 1 Mg Tablet, 1 MG PO DAILY, (Reported) Entered as Reported by: GONZALEZ LEON on 05/24/17 1059 Golimumab (Simponi) 100 Mg/1 Ml Syringe, 200 MG SQ EVERY 8 WEEKS, (Reported) Entered as Reported by: GONZAELZ LEON on 05/01/19 1526 Methotrexate Tablet (Methotrexate Tablet) 2.5 Mg Tablet, 25 MG PO WEDNESDAY, (Reported) Entered as Reported by: GONZALEZ LEON on 05/24/17 1059 Nabumetone (Nabumetone) 750 Mg Tablet, 1,500 MG PO DAILY, (Reported) Entered as Reported by: GONZALEZ LEON on 05/24/17 1059 Review of Systems Review of Systems Constitutional: see HPI EENTM: see HPI Respiratory: no symptoms reported Cardiovascular: no symptoms reported Genitourinary: no symptoms reported Musculoskeletal: no symptoms reported Skin: no symptoms reported Psychiatric/Neurological: No Symptoms Reported Hematologic/Lymphatic: No Symptoms Reported (EVELIA PADGETT APRN) Past Utingum-Zspgxr-Hnmmsi Hx Immunizations Up To Date Tetanus Booster (TDap): Unknown First/Initial COVID19 Vaccinat: UNKNOW Second COVID19 Vaccination Dario: UNKNOWN (EVELIA PADGETT APRN) Seasonal Allergies Seasonal Allergies: No (EVELIA PADGETT APRN) Past Medical History Surgeries: Yes (JAW SURGERY 17YRS AGO) Abdominal Respiratory: Yes (THIS ADMISSION 05/23/17) Pneumonia Cardiac: Yes (HAD STRESS TEST IN Nov, WAS OK) High Cholesterol Neurological: No Reproductive Disorders: No Female Reproductive Disorders: Denies Sexually Transmitted Disease: No HIV/AIDS: No Genitourinary: No Gastrointestinal: No Musculoskeletal: Yes Arthritis, Rheumatoid Arthritis Endocrine: No HEENT: No Loss of Vision: Denies Hearing Impairment: Denies Cancer: No Psychosocial: No Integumentary: No Blood Disorders: No Adverse Reaction/Blood Tranf: No (EVELIA PADGETT APRN) Family Medical History Cardiovascular disease 19 FATHER FH: breast cancer 19 MOTHER FH: non-Hodgkin's lymphoma G8 BROTHER FHx: rheumatoid arthritis G8 SISTER Heart murmur Heart Disease, Cancer, Other Conditions/Hx (EVELIA PADGETT APRN) Physical Exam Vital Signs Vital Signs - First Documented 11/02/21 12:31 Temp 36.4 Pulse 86 Resp 20 B/P (MAP) 138/82 (100) Pulse Ox 94 (AMIRAH,MATT K DO) Vital Signs Capillary Refill : (EVELIA PADGETT APRN) Height, Weight, BMI Height: 5'10.00" Weight: 210lbs. 6.4oz. 95.125256qp; 34.00 BMI Method:Stated General Appearance: No Apparent Distress, WD/WN, Other (Alert, disoriented, does not remember the fall.) Eyes: Bilateral Eye Normal Inspection, Bilateral Eye PERRL, Bilateral Eye EOMI HEENT: PERRL/EOMI, TMs Normal Neck: Full Range of Motion, Normal Inspection Respiratory: No Accessory Muscle Use, No Respiratory Distress Cardiovascular: Regular Rate, Rhythm, Normal Peripheral Pulses Gastrointestinal: Normal Bowel Sounds, Non Tender, Soft Extremity: Normal Capillary Refill, Normal Inspection Neurologic/Psychiatric: Alert, Oriented x3 Skin: Normal Color, Warm/Dry (EVELIA PADGETT APRN) Progress/Results/Core Measures Suspected Sepsis SIRS Temperature: Pulse: Respiratory Rate: Blood Pressure / Mean: (EVELIA PADGETT APRN) Results/Orders Vital Signs/I&O 11/02/21 11/02/21 12:31 14:40 Temp 36.4 Pulse 86 82 Resp 20 18 B/P (MAP) 138/82 (100) 142/82 Pulse Ox 94 97 (MATT MACARIO DO) Vital Signs/I&O Capillary Refill : (EVELIA PADGETT APRN) Departure Impression Primary Impression: Frequent falls Disposition: 01 HOME, SELF-CARE Condition: Stable Departure-Patient Inst. Decision time for Depature: 13:48 (EVELIA PADGETT APRN) Referrals: JACKY ROGERS MD (PCP/Family) Primary Care Physician Patient Instructions: Preventing Falls ATTENDING PHYSICIAN NOTE: I WAS PHYSICALLY PRESENT ER PHYSICIAN WHEN THIS PATIENT WAS IN ER, BUT I WAS NOT INVOLVED IN ANY DECISION MAKING OR ANY CARE OF THIS PATIENT. (MATT MACARIO DO) EVELIA PADGETT APRN Nov 02, 2021 12:45 MATT MACARIO DO Nov 05, 2021 04:53
--- NOTE | 2021-11-02 13:00 | Diagnostic Imaging Report ---
EXAM: Pelvis radiograph EXAM DATE: 11/02/2021 COMPARISON: 11/01/2021 HISTORY: Fall with hip pain. TECHNIQUE: Single view of the pelvis. FINDINGS: There is no acute fracture, dislocation, or destructive osseous process. The joint spaces are normal. The soft tissues are normal. IMPRESSION: No acute osseous abnormality of the pelvis. Dictated by: Dictated on workstation # [id number]
--- NOTE | 2021-11-02 13:02 | Diagnostic Imaging Report ---
PROCEDURE: CT head and CT cervical spine without contrast. TECHNIQUE: Multiple contiguous axial images were obtained through the brain and cervical spine without the use of intravenous contrast. Sagittal and coronal reformations through the cervical spine were then performed. Auto Exposure Controls were utilized during the CT exam to meet ALARA standards for radiation dose reduction. INDICATION: Fall, head and neck pain. Exam compared with study of 03/27/2021. FINDINGS: Ventriculomegaly unchanged in magnitude and configuration from the comparison. There is no intracerebral hemorrhage. There is no acute extra-axial fluid collection. Orbits, sinuses and calvarium nonacute. No air-fluid levels. CERVICAL SPINE: Cervical body heights within normal limits. There are degenerative changes to the discs, endplates and facets at multiple levels but no cervical fracture or paraspinal hemorrhage. The craniocervical relationship unremarkable. No dislocation. No paraspinal hemorrhage. Central skull base appeared intact. The visualized pulmonary apices revealed acuity indeterminate septal thickening as well as some biapical pleural-parenchymal chronic appearing scarring. IMPRESSION: CT head showed no hemorrhage or change from prior with stable ventriculomegaly Cervical spine reveals degenerative changes without fracture or traumatic malalignment. Dictated by: Dictated on workstation # [id number]
[2021-11-02 14:40] VITALS: BP 142/82
== END 2021-11-02 14:40 | disposition home or self-care (01) ==
LOC: EDUNIT# 12:31 → ER 12:32
DX: R29.6 Repeated falls (principal); F03.90 Unspecified dementia, unspecified severity, without behavioral disturbance, psychotic disturbance, mood disturbance, and anxiety; E78.00 Pure hypercholesterolemia, unspecified; M06.9 Rheumatoid arthritis, unspecified; Z79.899 Other long term (current) drug therapy
CPT/HCPCS: 70450; 72125; 72170

== ENCOUNTER → 2021-12-18 | Outpatient (CLI) | payer MEDICARE, MEDICAID ==
[~2021-12-18] MED LIST changes: +GADOTERATE 0.5 MMOL/ML (CLARISCAN) 20 ML VIAL IV ONE
--- NOTE | 2021-12-18 11:35 | Diagnostic Imaging Report ---
Clinical Indication: Patient with gait mobility issues, weakness. Exam: MRI of the brain performed without and with 16 cc of Clariscan IV contrast. Sequences include axial DWI, ADC map, axial gradient echo, axial FLAIR, axial T1, axial T2, axial T1 post IV contrast whole brain, coronal T1 fat-sat post IV contrast whole brain, and sagittal T1 fat-sat post IV contrast whole brain. Comparison: Head CT without contrast dated 11/02/2021. MRI of the brain without with IV contrast dated 08/01/2020. Findings: There is motion artifact limiting evaluation of the brain parenchyma. There is no evidence of acute cerebral infarct, intracranial hemorrhage, or gross mass effect. There is no abnormal IV contrast enhancement. There is no significant change in diffuse brain parenchymal volume loss including the temporal lobes. Again seen mild confluent high T2 signal white matter changes involving both cerebral hemispheres. There are multiple focal areas of high T2 signal white matter changes involving both cerebral hemispheres. There is normal pedersen-white matter distinction. There is no significant midline shift or herniation. The [place] vascular structures show no gross abnormality as visualized. The pituitary gland, sella, and suprasellar regions are unremarkable as visualized. Stable enlargement of the lateral and 3rd ventricles which appears slightly out of proportion to the degree of brain parenchymal volume loss. The basal cisterns are unremarkable. Otherwise, the skull, extracranial soft tissue, and orbits are unremarkable. Is no significant paranasal sinus disease. There is small amount of fluid involving right mastoid air cells. IMPRESSION: 1: Motion artifact greatly limits evaluation of multiple sequences on this exam. 2: Stable MRI of the brain with no evidence of acute intracranial process. There is no abnormal IV contrast enhancement. 3: There is enlargement of the lateral and 3rd ventricles which is out of proportion to the degree of brain parenchymal volume loss. Etiology such as communicating hydrocephalus such as normal pressure hydrocephalus may be considered. 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 There is diffuse brain parenchymal volume loss which is not significantly changed in interim. Dictated by: Dictated on workstation # [id number]
== END ==
LOC: RAD 10:15
PROVIDERS: ATTEND Family Medicine
DX: I67.82 Cerebral ischemia (principal); G93.89 Other specified disorders of brain; I67.81 Acute cerebrovascular insufficiency
CPT/HCPCS: 70553